=== PATIENT | female | born 2000 | race Caucasian/White ===

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

== ENCOUNTER → 2022-01-11 11:24 | Outpatient (BNVA) | payer OTHER, SELFPAY | PROVIDERS: PCP Physician Assistant; Referring Provider Physician Assistant; Visit Provider Surgery | DX: N60.82 Other benign mammary dysplasias of left breast (principal) | CPT/HCPCS: 99202 ==

== ENCOUNTER 2022-01-26 10:13 | Day surgery (SDC) | payer OTHER, SELFPAY ==
--- NOTE | 2022-01-25 08:27 | HO.ANESPROP2 ---
Documented by User: Carly Post NP 01/25/22 08:28 HPI - Anesthesia Eval Consult details Narrative: 21yo F for Left Excision breast skin Cyst PMFSH Active Problems Active Problems: All Active Problems (Updated 01/13/22 @ 12:58 by Milan Valdez MD) Sebaceous cyst of skin of left breast (Acute) Mild persistent asthma (Acute) Anxiety with depression (Acute) Obese (Acute) Depression (Acute) GERD (gastroesophageal reflux disease) (Acute) Irregular menses (Acute) ADHD (Acute) Migraines (Acute) Past Medical History Medical History (Updated 01/25/22 @ 08:28 by Carly Post NP) ADHD Anxiety with depression COVID-19 Depression GERD (gastroesophageal reflux disease) Irregular menses Migraines Mild persistent asthma Obese Family History Family History Mother No problems noted. Father No problems noted. Maternal Grandmother Skin cancer Surgical History Surgical History History of endoscopy History of tonsillectomy and adenoidectomy Social History Social History Household Members: Family Patient Tobacco Use Status: Never used Tobacco Second Hand Smoke Exposure: Yes Use of substances other than those prescribed or required for medical reasons: Yes Are you DNR?: No Advance Directives: No Advance Directives Information Provided: Yes Advance Directives on File: No Meds Allergies Allergy/AdvReac Type Severity Reaction Status Date / Time Cephalosporins Allergy Intermediate HIVES Verified 01/11/22 11:53 [CEPHALOSPORINS] erythromycin base Allergy Intermediate HIVES Verified 01/11/22 11:53 [ERYTHROMYCIN BASE] levofloxacin [From LEVAQUIN] Allergy Intermediate HIVES Verified 01/11/22 11:53 Penicillins [PENICILLINS] Allergy Intermediate HIVES Verified 01/11/22 11:53 amoxicillin Allergy Unknown Unknown Verified 01/11/22 11:53 azithromycin [Zithromax] Allergy Unknown Unknown Verified 01/11/22 11:53 Antibiotic Allergy Unknown Unknown Uncoded 01/11/22 11:53 Cefzil Allergy Unknown Unknown Uncoded 01/11/22 11:53 Home Medications Medication Instructions Recorded Confirmed Last Taken Type famotidine 20 mg tablet 20 mg PO BID 09/17/21 01/11/22 Unknown History buspirone 5 mg tablet 5 mg PO BID 10/28/21 01/11/22 Unknown History fluticasone propionate 250 2 inh inhalation BID 10/28/21 01/11/22 Unknown History mcg/actuation blister powder for inhalation (Flovent Diskus) montelukast 10 mg tablet 10 mg PO BEDTIME 10/28/21 01/11/22 Unknown History (Singulair) prednisolone sodium phosphate 10 10 mg PO DAILY 10/28/21 01/11/22 Unknown History mg/5 mL oral solution sertraline 50 mg tablet 75 mg PO Q24H 10/28/21 01/11/22 Unknown History Exam Exam Date and Time: January 25, 2022826 Assessment and Plan Assessment Anesthesia Assessment: Chart Reviewed Documented by User: Vero Irving MD 01/26/22 10:44 PMFSH Active Problems Active Problems: All Active Problems (Updated 01/13/22 @ 12:58 by Milan Valdez MD) Sebaceous cyst of skin of left breast (Acute) Mild persistent asthma (Acute) Anxiety with depression (Acute) Obese (Acute)BMI 41.7 Depression (Acute) GERD (gastroesophageal reflux disease) (Acute) Irregular menses (Acute) ADHD (Acute) Migraines (Acute) Snores but never tested for KRISTINE Past Medical History Medical History (Updated 01/25/22 @ 08:28 by Carly Post NP) ADHD Anxiety with depression COVID-19 Depression GERD (gastroesophageal reflux disease) Irregular menses Migraines Mild persistent asthma Obese Family History Family History Mother No problems noted. Father No problems noted. Maternal Grandmother Skin cancer Family history of problems with anesthesia: No Surgical History Surgical History History of endoscopy History of tonsillectomy and adenoidectomy History of Problems with Anesthesia: No (Had MAC anesthesia for EGD- did not like waking up post- procedure before getting to PACU) Social History Social History Household Members: Family Patient Tobacco Use Status: Never used Tobacco Second Hand Smoke Exposure: Yes Use of substances other than those prescribed or required for medical reasons: Yes Are you DNR?: No Advance Directives: No Advance Directives Information Provided: Yes Advance Directives on File: No Meds Allergies Allergy/AdvReac Type Severity Reaction Status Date / Time Cephalosporins Allergy Intermediate HIVES Verified 01/11/22 11:53 [CEPHALOSPORINS] erythromycin base Allergy Intermediate HIVES Verified 01/11/22 11:53 [ERYTHROMYCIN BASE] levofloxacin [From LEVAQUIN] Allergy Intermediate HIVES Verified 01/11/22 11:53 Penicillins [PENICILLINS] Allergy Intermediate HIVES Verified 01/11/22 11:53 amoxicillin Allergy Unknown Unknown Verified 01/11/22 11:53 azithromycin [Zithromax] Allergy Unknown Unknown Verified 01/11/22 11:53 Antibiotic Allergy Unknown Unknown Uncoded 01/11/22 11:53 Cefzil Allergy Unknown Unknown Uncoded 01/11/22 11:53 Home Medications Medication Instructions Recorded Confirmed Last Taken Type famotidine 20 mg tablet 20 mg PO BID 09/17/21 01/11/22 Unknown History buspirone 5 mg tablet 5 mg PO BID 10/28/21 01/11/22 Unknown History fluticasone propionate 250 2 inh inhalation BID 10/28/21 01/11/22 Unknown History mcg/actuation blister powder for inhalation (Flovent Diskus) montelukast 10 mg tablet 10 mg PO BEDTIME 10/28/21 01/11/22 Unknown History (Singulair) prednisolone sodium phosphate 10 10 mg PO DAILY 10/28/21 01/11/22 Unknown History mg/5 mL oral solution sertraline 50 mg tablet 75 mg PO Q24H 10/28/21 01/11/22 Unknown History Exam Height,Weight and Vital Signs: Height 5 ft 2 in Weight 103.419 kg Vital Signs Temp Pulse Resp BP Pulse Ox O2 Del Method 01/26/22 10:33 98.9 F 88 16 137/95 H 96 Room Air Pertinent Lab Results Pertinent Lab Results: Lab Results 01/26/22 Range/Units 10:23 Urine Test NEGATIVE (NEGATIVE) Airway Mallampati Class: II TM Dist: >3cm Neck ROM: Full Loose/Missing/Broken Teeth: No Heart: RRR Lungs: CTAB Assessment and Plan Assessment Anesthesia Assessment: Anesthesia Plan Discussed Final Anesthetic Review Family History of Problems with Anesthesia: No History of Problems with Anesthesia: No (Had MAC anesthesia for EGD- did not like waking up post- procedure before getting to PACU) NPO: Yes ASA Class: III Final Preanesthetic Review: No Changes in Pt Med Stat, Meds/Allgs Chart Reviewed, Consent Obtained/Reviewed and Anes Risks/Benef Reviewed Patient Risk: Intermediate Procedure Risk: Low Assessment/Block/Sedation in SS: Assess/Block/Sedation-SS Anesthetic Plan Anesthetic Plan: GA Disposition: Standard PACU
[2022-01-26] VITALS (7 sets, daily range): BP systolic 121–137; BP diastolic 55–95; PULSE 70–88; RESP 16–18; TEMP 36.1–37.2; O2SAT 96–100; BMI 41.7
[2022-01-26 10:41] LABS: UPreg QC Valid YES; Urine Pregnancy NEGATIVE (NEGATIVE)
[2022-01-26] MEDS: Lactated Ringers 1,000 ML 100 ML IVCONT (10:53)
[2022-01-26] MEDS: vancomycin HCL 1,500 MG in 0.9 % Sodium Chloride 500 ML 333.33 MG IV (11:03)
--- NOTE | 2022-01-26 11:24 | MHC.SHP ---
Pre-Procedural Eval Section A Date of Service: 01/26/22 The patient is an INPATIENT: No Changes since office visit: Yes Patient answered all questions; No Cold of Flu in the past 2 weeks, No New Medical Problems and No Changes in Medication The History & Physical has been completed within 30 days and I have reviewed it.: Yes Section B Chief Complaint: Other benign mammary dysplasias of left breast Allergies: Allergies Allergy/AdvReac Type Severity Reaction Status Date / Time Cephalosporins Allergy Intermediate HIVES Verified 01/11/22 11:53 [CEPHALOSPORINS] erythromycin base Allergy Intermediate HIVES Verified 01/11/22 11:53 [ERYTHROMYCIN BASE] levofloxacin [From LEVAQUIN] Allergy Intermediate HIVES Verified 01/11/22 11:53 Penicillins [PENICILLINS] Allergy Intermediate HIVES Verified 01/11/22 11:53 amoxicillin Allergy Unknown Unknown Verified 01/11/22 11:53 azithromycin [Zithromax] Allergy Unknown Unknown Verified 01/11/22 11:53 Antibiotic Allergy Unknown Unknown Uncoded 01/11/22 11:53 Cefzil Allergy Unknown Unknown Uncoded 01/11/22 11:53 Plan Diagnosis/Plan: Unchanged I have reviewed the history and physical and performed a pertinent physical examination on my patient. No changes have occurred unless specified.
--- NOTE | 2022-01-26 12:01 | P.OP_ITS ---
Operative Note Operative Note Date of Service: 01/26/22 Narrative: Preoperative diagnosis: Epidermal inclusion cyst left breast Postoperative diagnosis: Same Procedure: Excision of epidermal inclusion cyst breast Surgeon: Milan Valdez MD System Support Technician: None Anesthesia: General LMA Indications for procedure: 21-year-old female patient with a long history of a cyst of the left breast presenting with increasing size this the upper inner quadrant. Operative findings: 3 cm epidermal inclusion cyst left upper inner quadrant left breast Specimen: Epidermal inclusion cyst left breast Estimated blood loss: 5 mL Complications: None Procedure details: Patient was brought to the OR placed in a supine position. After administering general anesthesia the patient's left breast was prepped with ChloraPrep and draped in a sterile fashion. A surgical time-out was called the consent confirmed. Patient received preoperative antibiotics and Venodyne boots were in place. Local anesthesia consisting of 0.25% Sensorcaine was then infiltrated around the epidermal inclusion cyst. An elliptical incision was then created with a scalpel and carried down through subcutaneous tissue around the cyst wall. No abscess was encountered during this dissection. The lesion was passed off table sent to pathology for further examination. After assuring adequate hemostasis the wounds were irrigated with saline solution and suctioned dry. Deep breast tissue and dermis were then reapproximated using interrupted 3-0 Polysorb sutures. Skin was then closed using interrupted 4-0 nylon sutures. Sterile dressings consisting of 2 x 2 gauze and Tegaderm were then applied. The patient tolerated the procedure well. Sponge, instrument, and needle counts were reported as correct. The patient was transferred to PACU in stable condition.
[2022-01-26] MEDS: Acetaminophen 325 MG TABLET 650 MG PO (12:55)
== END 2022-01-26 13:27 | disposition home or self-care (01) ==
PROVIDERS: Nurse Practitioner; Visit Provider Surgery
PROC: (CPT 19120; principal; 2022-01-26 11:40)
DX: C44.591 Other specified malignant neoplasm of skin of breast (principal); Z79.899 Other long term (current) drug therapy; Z88.0 Allergy status to penicillin; Z88.1 Allergy status to other antibiotic agents; Z86.16 Personal history of COVID-19
CPT/HCPCS: 19120; 81025; 88304; 88305; 88307; 88341; 88342; 88360; J1100; J1200; J1885; J2250; J2405; J3010; J3370

== ENCOUNTER 2022-02-11 00:42 | Emergency (ER) | payer OTHER, SELFPAY ==
[2022-02-11 01:03] VITALS: BP 133/83; PULSE 84; RESP 16; TEMP 36.8; O2SAT 98; BMI 42.0
[2022-02-11 01:08] VITALS: PULSE 82; RESP 16; O2SAT 99
--- NOTE | 2022-02-11 01:12 | ED_ITS ---
HPI - Back Pain/Injury General Chief Complaint: Back Pain/Injury Stated Complaint: back muscle spasm shooting up to neck Time Seen by Provider: 02/11/22 01:01 Source: patient and family Mode of arrival: ambulatory Limitations: no limitations History of Present Illness HPI Narrative: patient comes to the emergency room complaining of bilateral upper and mid back pain. Patient states that she slept in a Rodriguez position. Since this morning, she has been having muscle spasms on both sides of her back. Patient also complaining of dysuria for couple of days, no hematuria, no flank pain, no fever chills Related Data Home Medications Medication Instructions Recorded Confirmed famotidine 20 mg tablet 20 mg PO BID 09/17/21 01/11/22 buspirone 5 mg tablet 5 mg PO BID 10/28/21 01/11/22 fluticasone propionate 250 2 inh inhalation BID 10/28/21 01/11/22 mcg/actuation blister powder for inhalation (Flovent Diskus) montelukast 10 mg tablet 10 mg PO BEDTIME 10/28/21 01/11/22 (Singulair) prednisolone sodium phosphate 10 10 mg PO DAILY 10/28/21 01/11/22 mg/5 mL oral solution sertraline 50 mg tablet 75 mg PO Q24H 10/28/21 01/11/22 Previous Rx's Medication Instructions Recorded albuterol sulfate 2.5 mg (3 mL) inhalation Q4-6H PRN 09/24/21 shortness of breath or wheezing #75 mL norgestimate 0.18 mg/0.215 mg/0.25 1 tab PO DAILY #84 tabs 10/04/21 mg-ethinyl estradiol 25 mcg tablet lisdexamfetamine 40 mg capsule 40 mg PO QAM #30 caps 10/18/21 (Vyvanse) albuterol sulfate 90 mcg/actuation 2 puff inhalation Q4-6H PRN 11/02/21 aerosol inhaler (ProAir HFA) shortness of breath or wheezing 30 days #18 grams oxycodone 5 mg tablet 5 mg PO Q6H PRN pain (scale score 01/26/22 7-10) #10 tabs cyclobenzaprine 5 mg tablet 5 mg PO TID PRN muscle spasm #10 02/11/22 tabs Allergies Allergy/AdvReac Type Severity Reaction Status Date / Time Cephalosporins Allergy Intermediate HIVES Verified 02/03/22 11:55 [CEPHALOSPORINS] erythromycin base Allergy Intermediate HIVES Verified 02/03/22 11:55 [ERYTHROMYCIN BASE] levofloxacin [From LEVAQUIN] Allergy Intermediate HIVES Verified 02/03/22 11:55 Penicillins [PENICILLINS] Allergy Intermediate HIVES Verified 02/03/22 11:55 amoxicillin Allergy Unknown Unknown Verified 02/03/22 11:55 azithromycin [Zithromax] Allergy Unknown Unknown Verified 02/03/22 11:55 Antibiotic Allergy Unknown Unknown Uncoded 02/03/22 11:55 Cefzil Allergy Unknown Unknown Uncoded 02/03/22 11:55 Review of Systems Review of Systems: Constitutional : No Weight loss, No Fever, No Chills, No Night Sweats, No Fatigue, No Malaise ENT/Mouth : No Hearing loss, No Ear Pain, No Nasal Congestion, No Sinus Pain, No Hoarseness, No sore throat, No Rhinorrhea, No Swallowing Difficulty Eyes: No Eye Pain, No Swelling, No Redness, No Foreign Body, No Discharge, No Vision Changes Cardiovascular : No Chest Pain, No SOB, No Dyspnea on Exertion, No Orthopnea, No Edema, No Palpitations Respiratory : No Cough, No Sputum, No Wheezing, No Smoke Exposure, No Dyspnea Gastrointestinal : No Nausea, No Vomiting, No Diarrhea, No Constipation, No abdominal Pain, No Hematochezia, No Melena Genitourinary : no irregular bleeding, complaining of dysuria, No Urinary Frequency, No Hematuria, No Urinary Incontinence, No Urgency, No Flank Pain, No Urinary Flow Changes, No Hesitancy Musculoskeletal : complaining of bilateral upper and thoracic back pain No joint pain, No Myalgias, No Joint Swelling Skin : No Skin Lesions, No rash Neuro : No Weakness, No Numbness, No Paresthesias, No Loss of Consciousness, No Dizziness, No Headache Psych : No Anxiety/Panic, No Depression, No SI/HI/AH/VH, No Social Issues, Heme/Lymph: No Bruising, No Bleeding,No Lymphadenopathy Endocrine : No Polyuria, No Polydipsia, No Temperature Intolerance PMFSH Past Medical History Medical History COVID-19 Surgical History History of endoscopy History of excision of mass (01/26/22) History of tonsillectomy and adenoidectomy Family History Family History Mother No problems noted. Father No problems noted. Maternal Grandmother Skin cancer Social History Social History Household Members: Family Patient Tobacco Use Status: Never used Tobacco Second Hand Smoke Exposure: Yes Advance Directives: No Advance Directives Information Provided: Yes Physical Exam Vital Signs: Vital Signs: Last Vital Signs Temp 98.2 F 02/11/22 01:03 Pulse 83 02/11/22 02:09 Resp 14 02/11/22 02:09 BP 133/83 02/11/22 01:03 Pulse Ox 99 02/11/22 02:09 O2 Del Method 02/11/22 01:08 BMI result Body Mass Index 42.0 Const: Other: Appearance: Alert. Oriented X3. No acute distress. Eyes: Pupils equal, round and reactive to light. ENT: Pharynx normal. Neck: Normal inspection. Neck supple. No lymph nodes noted. No crepitus CVS: Normal heart rate and rhythm. Pulses normal. Normal S1 and S2 Respiratory: No respiratory distress. Breath sounds normal. No Wheezing. No rales Abdomen: Soft and nontender. No rigidity. No distention. back: Pain to palpation in all spots in her back bilaterally, no spine tenderness. Skin: Skin warm and dry. Normal skin color. Normal skin turgor. Extremities: No lower extremity edema. No Lacerations. No Rash Neuro: Oriented X 3. No motor deficit. No sensory deficit. Moving all extremities. No slurred speech. CN 2 through 12 grossly intact Psych: Very anxious, crying Course Course Course Narrative: patient offered 1 dose of IM Toradol and p.o. Valium. Urinalysis pending urinalysis negative for UTI. MDM - Back Pain/Injury Lab Data Labs: Lab Results 02/11/22 Range/Units 02:09 Urine Color YELLOW Urine Appearance HAZY Urine pH 6.0 (5.0-8.0) Ur Specific [place] >= 1.030 H (1.005-1.025) Urine Protein NEG (NEG-TRACE) MG/DL Urine Glucose (UA) NEG (NEG) MG/DL Urine Ketones NEG (NEG) MG/DL Urine Blood NEG (NEG) Urine Nitrite NEG (NEG) Ur Leukocyte Esterase NEG (NEG) Discharge Plan Discharge Clinical Impression: Back muscle spasm, Dysuria Patient Disposition: Home, Self-Care Instructions: Dysuria (ED), Muscle Spasm (ED) Additional Instructions: Please follow-up with your primary care physician tomorrow. If you have any worsening or new symptoms, please return to the emergency room or call 911 Prescriptions: New cyclobenzaprine 5 mg tablet 5 mg PO TID PRN (Reason: muscle spasm) Qty: 10 0RF No Action albuterol sulfate 2.5 mg /3 mL (0.083 %) solution for nebulization 2.5 mg inhalation Q4-6H PRN (Reason: shortness of breath or wheezing) Qty: 75 0RF norgestimate-ethinyl estradiol 0.18/0.215/0.25 mg-25 mcg tablet 1 tab PO DAILY Qty: 84 2RF Vyvanse 40 mg capsule 40 mg PO QAM Qty: 30 0RF albuterol sulfate [ProAir HFA] 90 mcg/actuation HFA aerosol inhaler 2 puff inhalation Q4-6H PRN (Reason: shortness of breath or wheezing) 30 Days Qty: 18 3RF oxycodone 5 mg tablet 5 mg PO Q6H PRN (Reason: pain (scale score 7-10)) Qty: 10 0RF Rx Instructions: Partial Fill upon patient request. famotidine 20 mg tablet 20 mg PO BID Flovent Diskus 250 mcg/actuation blister with device 2 inh inhalation BID buspirone 5 mg tablet 5 mg PO BID prednisolone sodium phosphate 10 mg/5 mL solution 10 mg PO DAILY sertraline 50 mg tablet 75 mg PO Q24H montelukast [Singulair] 10 mg tablet 10 mg PO BEDTIME
[2022-02-11] MEDS: diazePAM 2 MG TABLET PO (01:18)
[2022-02-11] MEDS: Ketorolac Tromethamine 30 MG/ML VIAL IM (01:19)
[2022-02-11 02:09] VITALS: PULSE 83; RESP 14; O2SAT 99
[2022-02-11 02:18] LABS: Appearance Urine HAZY; Color Urine YELLOW; Glucose Urine UA NEG (NEG); Leukocyte Esterase Urine NEG (NEG); Nitrite Urine NEG (NEG); Specific Gravity - Urine >= 1.030 (1.005-1.025); Urine Blood NEG (NEG); Urine Ketones NEG (NEG); Urine Protein NEG (NEG-TRACE)
== END 2022-02-11 02:57 | disposition home or self-care (01) ==
PROVIDERS: Emergency Provider Emergency Medicine; PCP Physician Assistant
DX: M62.830 Muscle spasm of back (principal); R30.0 Dysuria; Z79.899 Other long term (current) drug therapy
CPT/HCPCS: 81003; 96372; 99284; J1885

== ENCOUNTER 2022-02-14 15:07 | Emergency (ER) | payer OTHER, SELFPAY ==
[2022-02-14 15:17] VITALS: BP 147/78; PULSE 111; RESP 22; TEMP 36.1; O2SAT 97; BMI 42.0
== END 2022-02-14 16:30 | disposition left against medical advice (07) ==
PROVIDERS: Emergency Provider Emergency Medicine; PCP Physician Assistant
DX: J45.909 Unspecified asthma, uncomplicated (principal)
CPT/HCPCS: 99281

== ENCOUNTER 2022-02-23 07:40 | Day surgery (SDC) | payer OTHER, SELFPAY ==
[2022-02-17 14:12] VITALS: BMI 42.0
[2022-02-23] VITALS (19 sets, daily range): BP systolic 125–144; BP diastolic 72–96; PULSE 88–101; RESP 14–20; TEMP 36.1–36.5; O2SAT 93–100
[2022-02-23 07:58] LABS: UPreg QC Valid YES
[2022-02-23 08:00] LABS: Urine Pregnancy NEGATIVE (NEGATIVE)
[2022-02-23] MEDS: vancomycin HCL 1,500 MG in 0.9 % Sodium Chloride 500 ML 333.33 MG IV (08:16)
[2022-02-23] MEDS: Lactated Ringers 1,000 ML 100 ML IVCONT (08:16)
[2022-02-23] MEDS: diphenhydrAMINE HCL 50 MG/ML VIAL 25 MG IVPUSH (09:15)
--- NOTE | 2022-02-23 09:18 | P.CONAN_ITS ---
[facility] Active Problems Active Problems: All Active Problems (Updated 02/12/22 @ 00:02 by Diane Rodriguez) Irregular menses (Acute) Depression (Acute) Migraines (Acute) Obese (Acute) Mild persistent asthma (Acute) GERD (gastroesophageal reflux disease) (Acute) Anxiety with depression (Acute) ADHD (Acute) Dermatofibrosarcoma protuberans of chest (Acute) Past Medical History Medical History COVID-19 Patient : No Family History Family History Mother No problems noted. Father No problems noted. Maternal Grandmother Skin cancer Family history of problems with anesthesia: No Surgical History Surgical History History of endoscopy History of excision of mass (01/26/22) History of tonsillectomy and adenoidectomy History of Problems with Anesthesia: No (Had MAC anesthesia for EGD- did not like waking up post- procedure before getting to PACU) Social History Social History Household Members: Family Are you a primary student career development specialist to a significant other at home: No Do you presently have visiting nurse or other home services: No Patient Tobacco Use Status: Never used Tobacco Second Hand Smoke Exposure: Yes Use of substances other than those prescribed or required for medical reasons: Yes Substance Use Frequency: Daily Have you been hit, kicked, punched, or otherwise hurt by someone within the past year? If so, by whom?: No Are you DNR?: No Advance Directives: No Advance Directives Information Provided: Yes Advance Directives on File: No Recently lost weight without trying: No Patient : No FDLMP: 01/17/2022 : No Poor oral hygiene: No Meds Allergies Allergy/AdvReac Type Severity Reaction Status Date / Time amoxicillin Allergy Intermediate Hives Verified 02/17/22 14:07 azithromycin [Zithromax] Allergy Intermediate Itching Verified 02/17/22 14:07 Cephalosporins Allergy Intermediate HIVES Verified 02/14/22 15:24 [CEPHALOSPORINS] erythromycin base Allergy Intermediate HIVES Verified 02/14/22 15:24 [ERYTHROMYCIN BASE] levofloxacin [From LEVAQUIN] Allergy Intermediate HIVES Verified 02/14/22 15:24 Penicillins [PENICILLINS] Allergy Intermediate HIVES Verified 02/14/22 15:24 Antibiotic Allergy Intermediate Itching Uncoded 02/17/22 14:07 Cefzil Allergy Intermediate Itching Uncoded 02/17/22 14:07 Active Medications: Current Medications Lactated Ringer's (Lr) 1,000 mls @ 100 mls/hr IVCONT .Q10H GAEL Last Admin: 02/23/22 08:16 Dose: 100 mls/hr Ondansetron HCl (Ondansetron Hcl 4 Mg/2 Ml Vial) 4 mg IVPUSH ONCE PRN PRN Reason: Nausea and Vomiting Pharmacy Consult (Consult Rx Vancomycin Dosing) 1 each MISCELLANE DAILY PRN PRN Reason: Consult order Home Medications Medication Instructions Recorded Confirmed Last Taken Type famotidine 20 mg tablet 20 mg PO BID 09/17/21 02/17/22 02/23/22 History buspirone 5 mg tablet 5 mg PO BID 10/28/21 02/17/22 02/23/22 History montelukast 10 mg tablet 10 mg PO BEDTIME 10/28/21 02/17/22 Unknown History (Singulair) sertraline 50 mg tablet 75 mg PO DAILY 10/28/21 02/17/22 02/23/22 History fluticasone 500 mcg-salmeterol 50 2 inh inhalation BID 02/17/22 02/17/22 Unknown History mcg/dose blistr powdr for inhalation (Advair Diskus) Exam Exam Date and Time: February 23, 2022 0918 Height,Weight and Vital Signs: Height 5 ft 2 in Weight 104.326 kg Last Vital Signs Temp 97 F 02/23/22 07:54 Pulse 88 02/23/22 07:54 Resp 19 02/23/22 07:54 BP 134/81 02/23/22 07:54 Pulse Ox 97 02/23/22 07:54 O2 Del Method 02/23/22 07:54 Pertinent Lab Results Pertinent Lab Results: Laboratory Tests 02/23/22 07:40 Urine Test NEGATIVE Airway Mallampati Class: II TM Dist: >3cm Neck ROM: Full Loose/Missing/Broken Teeth: No Heart: rrr Lungs: clear Assessment and Plan Final Anesthetic Review Family History of Problems with Anesthesia: No History of Problems with Anesthesia: No (Had MAC anesthesia for EGD- did not like waking up post- procedure before getting to PACU) NPO: Yes ASA Class: II Final Preanesthetic Review: No Changes in Pt Med Stat, Meds/Allgs Chart Reviewed, Consent Obtained/Reviewed and Anes Risks/Benef Reviewed Patient Risk: Intermediate Procedure Risk: Low Anesthetic Plan Anesthetic Plan: GA Disposition: Standard PACU
--- NOTE | 2022-02-23 09:22 | P.CONAN_ITS ---
[facility] Active Problems Active Problems: All Active Problems (Updated 02/12/22 @ 00:02 by Diane Rodriguez) Irregular menses (Acute) Depression (Acute) Migraines (Acute) Obese (Acute) Mild persistent asthma (Acute) GERD (gastroesophageal reflux disease) (Acute) Anxiety with depression (Acute) ADHD (Acute) Dermatofibrosarcoma protuberans of chest (Acute) Past Medical History Medical History COVID-19 Family History Family History Mother No problems noted. Father No problems noted. Maternal Grandmother Skin cancer Family history of problems with anesthesia: No Surgical History Surgical History History of endoscopy History of excision of mass (01/26/22) History of tonsillectomy and adenoidectomy History of Problems with Anesthesia: No (Had MAC anesthesia for EGD- did not like waking up post- procedure before getting to PACU) Social History Social History Household Members: Family Are you a primary rn home care to a significant other at home: No Do you presently have visiting nurse or other home services: No Patient Tobacco Use Status: Never used Tobacco Second Hand Smoke Exposure: Yes Use of substances other than those prescribed or required for medical reasons: Yes Substance Use Frequency: Daily Have you been hit, kicked, punched, or otherwise hurt by someone within the past year? If so, by whom?: No Are you DNR?: No Advance Directives: No Advance Directives Information Provided: Yes Advance Directives on File: No Recently lost weight without trying: No Patient : No FDLMP: 01/17/2022 : No Poor oral hygiene: No Meds Allergies Allergy/AdvReac Type Severity Reaction Status Date / Time amoxicillin Allergy Intermediate Hives Verified 02/17/22 14:07 azithromycin [Zithromax] Allergy Intermediate Itching Verified 02/17/22 14:07 Cephalosporins Allergy Intermediate HIVES Verified 02/14/22 15:24 [CEPHALOSPORINS] erythromycin base Allergy Intermediate HIVES Verified 02/14/22 15:24 [ERYTHROMYCIN BASE] levofloxacin [From LEVAQUIN] Allergy Intermediate HIVES Verified 02/14/22 15:24 Penicillins [PENICILLINS] Allergy Intermediate HIVES Verified 02/14/22 15:24 Antibiotic Allergy Intermediate Itching Uncoded 02/17/22 14:07 Cefzil Allergy Intermediate Itching Uncoded 02/17/22 14:07 Active Medications: Current Medications Lactated Ringer's (Lr) 1,000 mls @ 100 mls/hr IVCONT .Q10H GAEL Last Admin: 02/23/22 08:16 Dose: 100 mls/hr Ondansetron HCl (Ondansetron Hcl 4 Mg/2 Ml Vial) 4 mg IVPUSH ONCE PRN PRN Reason: Nausea and Vomiting Pharmacy Consult (Consult Rx Vancomycin Dosing) 1 each MISCELLANE DAILY PRN PRN Reason: Consult order Home Medications Medication Instructions Recorded Confirmed Last Taken Type famotidine 20 mg tablet 20 mg PO BID 09/17/21 02/17/22 02/23/22 History buspirone 5 mg tablet 5 mg PO BID 10/28/21 02/17/22 02/23/22 History montelukast 10 mg tablet 10 mg PO BEDTIME 10/28/21 02/17/22 Unknown History (Singulair) sertraline 50 mg tablet 75 mg PO DAILY 10/28/21 02/17/22 02/23/22 History fluticasone 500 mcg-salmeterol 50 2 inh inhalation BID 02/17/22 02/17/22 Unknown History mcg/dose blistr powdr for inhalation (Advair Diskus) Exam Exam Date and Time: February 23, 2022921 Height,Weight and Vital Signs: Height 5 ft 2 in Weight 104.326 kg Last Vital Signs Temp 97 F 02/23/22 07:54 Pulse 88 02/23/22 07:54 Resp 19 02/23/22 07:54 BP 134/81 02/23/22 07:54 Pulse Ox 97 02/23/22 07:54 O2 Del Method 02/23/22 07:54 Pertinent Lab Results Pertinent Lab Results: Laboratory Tests 02/23/22 07:40 Urine Test NEGATIVE Assessment and Plan Final Anesthetic Review Family History of Problems with Anesthesia: No History of Problems with Anesthesia: No (Had MAC anesthesia for EGD- did not like waking up post- procedure before getting to PACU)
--- NOTE | 2022-02-23 11:18 | W.PM.OPN ---
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 Previous excision revealed dermatofibrosarcoma protuberans. She returns today for wide excision to assure complete removal. Operative findings: Excision site in the medial left breast just lateral to the sternum. Lesion excised with 3 cm margins circumferentially Specimen: wide excision left breast sarcoma Estimated blood loss: 5 mL Complications: none Procedure details: patient was brought to the OR placed in a supine position. After administering general anesthesia the patient's left breast and right breast were prepped with ChloraPrep and draped in a sterile fashion. A surgical time-out was called the consent confirmed. Patient received preoperative antibiotics and Venodyne boots were placed. Local anesthesia consisting of 0.5% Sensorcaine was then infiltrated circumferentially around the lesion. Elliptical incision was then made oriented transversely with 3 cm margin circumferentially. This was carried down through subcutaneous tissue into the breast tissue and down to chest wall. The lesion was then excised off the chest wall including pectoralis fascia. Hemostasis was assured using electrocautery. Specimen was passed off the table and sent to pathology for immediate gross and frozen section of the margins. This eventually revealed clear frozen section margins. Breast tissue was then mobilized both superiorly and inferiorly over the chest wall. This was then reapproximated using interrupted 3-0 Polysorb sutures. Deeper breast tissue was reapproximated using interrupted 3-0 Polysorb sutures. Dermis was reapproximated using interrupted 3-0 Polysorb sutures. Skin was closed using a running subcuticular 4-0 Polysorb suture. Interrupted 4-0 nylon sutures were then applied to reduce the tension on the skin. Sterile dressings were then applied including Steri-Strips and Tegaderm. The patient tolerated the procedure well. Sponge, instrument, and needle counts reported as correct. The patient was transferred to PACU in stable condition.
[2022-02-23] MEDS: HYDROmorphone HCl 0.5 MG/0.5 ML SYRINGE IVPUSH ×2 (12:06→12:17)
[2022-02-23] MEDS: oxyCODONE HCl Immed Release 5 MG TABLET 10 MG PO (12:11)
[2022-02-23] MEDS: Ketorolac Tromethamine 30 MG/ML VIAL IVPUSH (12:38)
== END 2022-02-23 15:30 | disposition home or self-care (01) ==
PROVIDERS: Anesthesiology; PCP Physician Assistant; Visit Provider Surgery
PROC: (CPT 11606; principal; 2022-02-23 09:10)
DX: C44.591 Other specified malignant neoplasm of skin of breast (principal); N60.82 Other benign mammary dysplasias of left breast; Z86.16 Personal history of COVID-19; Z88.0 Allergy status to penicillin; Z88.1 Allergy status to other antibiotic agents; Z88.8 Allergy status to other drugs, medicaments and biological substances
CPT/HCPCS: 11606; 12032; 81025; 88307; 88329; J0131; J1100; J1170; J1200; J1885; J2250; J2405; J2795; J3010; J3370

== ENCOUNTER 2022-05-13 12:50 | Outpatient (REF) | payer OTHER, SELFPAY ==
--- NOTE | ~2022-05-13 | US_ITS ---
EXAMINATION: US ABDOMEN COMPLETE CLINICAL INFORMATION: Elevated LFTs. COMPARISON: Ultrasound abdomen complete 05/13/2019. TECHNIQUE: Real-time imaging of the abdominal viscera. FINDINGS: PANCREAS: The head of the pancreas is normal. The body and tail are not well visualized bowel gas. ABDOMINAL AORTA: The proximal, mid, and distal segments are normal in caliber. INFERIOR VENA CAVA: Visualized portions are normal. LIVER: Liver echotexture is increased suggestive of fatty infiltration. There is a hypoechoic area adjacent to gallbladder, characteristic location of focal narrowing. The liver contour is normal. No focal hepatic lesion. There is no intrahepatic biliary duct dilatation seen. GALLBLADDER: Normal. The gallbladder is physiologically distended without evidence of stones, sludge, polyps, wall thickening or pericholecystic fluid. COMMON BILE DUCT: Normal in caliber measuring 0.4 cm in diameter. RIGHT KIDNEY: Normal No hydronephrosis. No renal calculi or focal parenchymal lesions. The kidney measures 10.2 cm in maximum dimension. LEFT KIDNEY: Normal. No hydronephrosis. No renal calculi or focal parenchymal lesions. The kidney measures 11.0 cm in maximum dimension. SPLEEN: Normal. The spleen measures 12.2 cm in maximum dimension. FREE FLUID: None. US/US abdomen complete IMPRESSION: Echogenic liver probably representing fatty infiltration. Limited visualization of the pancreas.
== END 2022-05-13 12:51 | disposition home or self-care (01) ==
LOC: HO.US 12:50
PROVIDERS: Visit Provider Internal Medicine Medical Oncology
DX: R79.89 Other specified abnormal findings of blood chemistry (principal)
CPT/HCPCS: 76700

== ENCOUNTER 2022-06-30 16:43 | Emergency (ER) | payer OTHER, SELFPAY ==
--- NOTE | ~2022-06-30 | XR_ITS ---
EXAMINATION: XR CHEST CLINICAL INFORMATION: Cough COMPARISON: 03/08/2021 and 06/17/2019 TECHNIQUE: Frontal view of the chest was obtained. FINDINGS: Suboptimal depth of inspiration. No focal pneumonia. No effusion or pneumothorax. Chronic mild bronchial wall thickening. Hair artifact over the lung apices. Stable heart and mediastinum within normal limits. Nonobstructive gas pattern. No acute osseous finding. XR/XR chest 1V IMPRESSION: 1. No focal pneumonia. 2. Chronic mild bronchial wall thickening.
[2022-06-30 16:51] VITALS: BP 135/85; PULSE 109; RESP 18; TEMP 37; O2SAT 97; BMI 42.7
--- NOTE | 2022-06-30 16:52 | ED.URI ---
HPI - URI/Sore Throat General Chief Complaint: Ear Problems Stated Complaint: Sore throat, Earache Time Seen by Provider: 06/30/22 19:03 Source: patient Mode of arrival: ambulatory History of Present Illness HPI Narrative: 22yo F with no sig PMHx presenting c/o sore throat, ear pain, productive cough and mild SOB x 2 weeks. Also reports subj fever. Denies inability to swallow, CP, ear drainage/hearing loss, abd pain, N/V/D/C, recent travel MD elicited complaint: fever, cough, sore throat, rhinorrhea and nasal congestion Related Data Home Medications Medication Instructions Recorded Confirmed famotidine 20 mg tablet 20 mg PO BID 09/17/21 04/18/22 montelukast 10 mg tablet 10 mg PO BEDTIME 10/28/21 04/18/22 (Singulair) fluticasone 500 mcg-salmeterol 50 2 inh inhalation BID 02/17/22 04/18/22 mcg/dose blistr powdr for inhalation (Advair Diskus) clonidine HCl 0.1 mg tablet 0.1 - 0.2 mg PO BEDTIME insomnia 04/07/22 04/18/22 lisdexamfetamine 60 mg capsule 60 mg PO DAILY 04/07/22 04/18/22 (Vyvanse) sertraline 100 mg tablet 100 mg PO DAILY 04/07/22 04/18/22 Previous Rx's Medication Instructions Recorded albuterol sulfate 2.5 mg/3 mL 2.5 mg (3 mL) inhalation Q4-6H PRN 09/24/21 (0.083 %) solution for nebulization shortness of breath or wheezing #75 mL albuterol sulfate 90 mcg/actuation 2 puff inhalation Q4-6H PRN 11/02/21 aerosol inhaler (ProAir HFA) shortness of breath or wheezing 30 days #18 grams norgestimate 0.18 mg/0.215 mg/0.25 1 tab PO DAILY #84 tabs 04/18/22 mg-ethinyl estradiol 25 mcg tablet azithromycin 250 mg tablet See Rx Instructions PO .COMPLEX #6 06/30/22 tabs diphenhydramine HCl 25 mg capsule 25 mg PO TID PRN allergic reaction 06/30/22 (Benadryl) #14 caps Allergies Allergy/AdvReac Type Severity Reaction Status Date / Time amoxicillin Allergy Intermediate Hives Verified 06/30/22 16:51 azithromycin [Zithromax] Allergy Intermediate Itching Verified 06/30/22 16:51 Cephalosporins Allergy Intermediate HIVES Verified 06/30/22 16:51 [CEPHALOSPORINS] erythromycin base Allergy Intermediate HIVES Verified 06/30/22 16:51 [ERYTHROMYCIN BASE] levofloxacin [From LEVAQUIN] Allergy Intermediate HIVES Verified 06/30/22 16:51 Penicillins [PENICILLINS] Allergy Intermediate HIVES Verified 06/30/22 16:51 Antibiotic Allergy Intermediate Itching Uncoded 04/18/22 13:31 Cefzil Allergy Intermediate Itching Uncoded 04/18/22 13:31 Review of Systems Review of Systems: Constitutional: No Fever, No Chills ENT/Mouth: + Ear Pain, No Nasal Congestion, No Sinus Pain, No Hoarseness, + sore throat, No Rhinorrhea, No Swallowing Difficulty Cardiovascular: No Chest Pain, + SOB Respiratory: + Cough, + Sputum, No Wheezing Gastrointestinal: No Nausea, No Vomiting, No Diarrhea, No Constipation, No Abdominal pain Genitourinary: No Dysuria, No Urinary Frequency, No Hematuria Musculoskeletal: No joint pain, No Myalgias, No Joint Swelling Skin: No Skin Lesions, No rash Neuro: No Weakness, No Numbness, No Paresthesias Yes all other systems are reviewed and are negative Constitutional: Constitutional: Reports as per [facility] Past Medical History Attestation statement: The following information was validated with the patient. Medical History COVID-19 Surgical History History of endoscopy History of excision of mass (01/26/22) History of excision of mass (02/23/22) History of tonsillectomy and adenoidectomy Family History Family History Mother No problems noted. Father No problems noted. Maternal Grandmother Skin cancer Social History Social History Household Members: Family Housing: House Are you a primary client care representative to a significant other at home: No Do you presently have visiting nurse or other home services: No Patient Tobacco Use Status: Never used Tobacco Second Hand Smoke Exposure: Yes Substance Use Type: Marijuana Advance Directives: No Advance Directives Information Provided: No service: No Current occupational status: employed Physical Exam Vital Signs: Vital Signs: Last Vital Signs Temp 98.6 F 06/30/22 16:51 Pulse 87 06/30/22 19:21 Resp 18 06/30/22 16:51 BP 135/85 06/30/22 16:51 Pulse Ox 97 06/30/22 16:51 O2 Del Method 06/30/22 16:51 BMI result Body Mass Index 42.7 Const: General: cooperative, healthy appearing and no acute distress Orientation/consciousness: patient oriented x3 Limitations: no limitations HEENT: Head: Yes normal to inspection and Yes atraumatic Ears: hearing grossly normal bilaterally, external ears normal and TM's normal bilaterally General nose exam: Normal external nose present Face and sinus: Yes normal facial exam Throat: Yes posterior oropharynx normal, Yes tonsils normal, Yes uvula midline and No uvula laterally displaced Eyes: General: appearance normal, both eyes and all related structures EOM: EOMs intact bilaterally Neck: Neck: Yes normal visual inspection and Yes no meningeal signs Resp: Effort & Inspection: normal respiratory effort and no respiratory distress Auscultation: clear to auscultation bilaterally, no crackles, no rales, no rhonchi and no wheezes Cardio: Rate: regular rate Heart sounds: S1 normal heart sound present and S2 normal heart sound present Skin: Rashes: no rashes Wounds: no wounds Neuro: General: patient oriented x3, tone normal and no meningeal signs Gait exam (Neuro): Normal gait present Extrem: General: Yes normal to inspection Course Course Course Narrative: RME--22yo F pmhx asthma c/o productive cough, sob, sore throat, ear pain and subj fevers x1 week. Admits was exposed to RSV. Lungs CTA Plan: COVID/FLU/RSV, strep swab and CXR ordered Reevaluation(s) Reevaluation #1: covid, flu, rsv negative cxr unremarkable. will d/c w/abx for sinusitis Results discussed with patient including worrisome signs and symptoms and strict return precautions, and when to return to the emergency department. They verbalized understanding and feel safe for discharge at this time. Time: 19:09 [facility] - URI/Sore Throat MDM Narrative Medical decision making narrative: 22yo F with no sig PMHx presenting c/o sore throat, ear pain, productive cough and mild SOB x 2 weeks. On exam mildly tachycardic, NAD, well appearing, lungs CTA, exam benign. Concern for URI vs brinchitis vs PNA vs strep. No evidence of [employer] Plan: COVID/flu/rsv testing, CXR, rapid strep Differential Diagnosis Differential diagnosis: Likely upper respiratory infection, viral infection, bronchitis, influenza and pharyngitis Medical Records Attestation: I reviewed the patient's medical records. Lab Data Attestation: I reviewed the patient's lab results. Labs: Lab Results 06/30/22 06/30/22 Range/Units 16:56 16:56 Influenza Type A (PCR) NEGATIVE (Negative) Influenza Type B (PCR) NEGATIVE (Negative) RSV RNA Qual (PCR) NEGATIVE (Negative) SARS-CoV-2 RNA (RT-PCR) NEGATIVE (Negative) S. pyogenes GrpA JONY Negative (Negative) Discharge Plan Discharge Clinical Impression: Acute viral syndrome Patient Disposition: Home, Self-Care Instructions: Viral Syndrome (ED) Additional Instructions: you tested negative for covid, flu and rsv Z-colin is an antibiotic take as prescribed rest stay hydrated follow up with your doctor if symptoms persist or worsen return to the ED Prescriptions: New azithromycin 250 mg tablet See Rx Instructions .ROUTE .COMPLEX Qty: 6 0RF Rx Instructions: take 500 mg today (day 1), then 250 mg for 4 days (days 2-5) diphenhydramine HCl [Benadryl] 25 mg capsule 25 mg PO TID PRN (Reason: allergic reaction) Qty: 14 0RF No Action albuterol sulfate 2.5 mg /3 mL (0.083 %) solution for nebulization 2.5 mg inhalation Q4-6H PRN (Reason: shortness of breath or wheezing) Qty: 75 0RF albuterol sulfate [ProAir HFA] 90 mcg/actuation HFA aerosol inhaler 2 puff inhalation Q4-6H PRN (Reason: shortness of breath or wheezing) 30 Days Qty: 18 3RF norgestimate-ethinyl estradiol 0.18/0.215/0.25 mg-25 mcg tablet 1 tab PO DAILY Qty: 84 0RF fluticasone propion-salmeterol [Advair Diskus] 500-50 mcg/dose blister with device 2 inh INHALATION BID famotidine 20 mg tablet 20 mg PO BID montelukast [Singulair] 10 mg tablet 10 mg PO BEDTIME clonidine HCl 0.1 mg tablet 0.1 - 0.2 mg PO BEDTIME sertraline 100 mg tablet 100 mg PO DAILY Vyvanse 60 mg capsule 60 mg PO DAILY Referrals: Physician,None [Primary Care Provider] - 3 days Interventions: ED Discharge Assessment Last Done: 06/30/22 19:37 Discharge Date/Time: 06/30/22 19:37
[2022-06-30 17:23] LABS: Strep A Nucleic Acid Negative (Negative)
[2022-06-30 17:52] LABS: Influenza A PCR NEGATIVE (Negative); Influenza B PCR NEGATIVE (Negative); Resp Syncy Virus RNA Qual PCR NEGATIVE (Negative); SARS COV2 PCR INHOUSE NEGATIVE (Negative)
[2022-06-30 19:21] VITALS: PULSE 87
== END 2022-06-30 19:37 | disposition home or self-care (01) ==
PROVIDERS: Physician Assistant; Emergency Provider Student in an Organized Health Care Education/Training Program
DX: B34.9 Viral infection, unspecified (principal); J02.9 Acute pharyngitis, unspecified; R06.02 Shortness of breath; F12.90 Cannabis use, unspecified, uncomplicated; Z20.822 Contact with and (suspected) exposure to COVID-19
CPT/HCPCS: 0241U; 71045; 87651; 99282; 99283

== ENCOUNTER → 2022-07-07 15:40 | Outpatient (BNVA) | payer OTHER, SELFPAY | PROVIDERS: Visit Provider Surgery | DX: C44.599 Other specified malignant neoplasm of skin of other part of trunk (principal) | CPT/HCPCS: 99212 ==

== ENCOUNTER 2022-08-03 13:35 | Outpatient (REF) | payer OTHER, SELFPAY ==
--- NOTE | ~2022-08-03 | MR_ITS ---
EXAMINATION: MR CHEST WITHOUT AND WITH CONTRAST CLINICAL INFORMATION: Malignant neoplasm of the trunk. Per patient, cyst removed from the chest. COMPARISON: None TECHNIQUE: Multisequence multidimensional MR acquisition of the chest performed before and after administration of 10 mL of Gadavist IV contrast. FINDINGS: There is a marker positioned at the midline of the upper chest. There is mild scarring seen in the upper inner soft tissues of the left breast region extending down to the pectoralis level. No associated mass. No abnormal enhancement. No fluid collection. The visualized portion of the lungs appear grossly clear. No pleural fluid. The visualized mediastinum shows a normal heart size. No axillary lymphadenopathy. No superior mediastinal lymphadenopathy. The study is not tailored for evaluation of the breast tissues, but there is no gross abnormality identified. No bone marrow signal abnormality. MR/MR chest wo/w con IMPRESSION: Mild scarring in the upper inner soft tissues of the left breast, near the midline. No mass or abnormal enhancement. No fluid collection.
== END 2022-08-03 13:36 | disposition home or self-care (01) ==
LOC: HO.MRI 13:35
PROVIDERS: Visit Provider Surgery
DX: C44.599 Other specified malignant neoplasm of skin of other part of trunk (principal)
CPT/HCPCS: 71552; A9585

== ENCOUNTER → 2022-10-28 10:26 | Outpatient (BNVA) | payer OTHER, SELFPAY | PROVIDERS: Visit Provider Surgery | DX: C44.599 Other specified malignant neoplasm of skin of other part of trunk (principal) | CPT/HCPCS: 99212 ==

== ENCOUNTER 2023-02-27 21:02 | Emergency (ER) | payer OTHER, SELFPAY ==
[2023-02-27 21:10] VITALS: BP 141/91; PULSE 105; RESP 18; TEMP 36.2; O2SAT 97; BMI 43.0
--- NOTE | 2023-02-27 22:44 | ED_ITS ---
HPI - URI/Sore Throat General Chief Complaint: Upper Respiratory Symptoms Stated Complaint: difficulty breathing/ asthma Time Seen by Provider: 02/27/23 22:12 Source: patient Mode of arrival: ambulatory History of Present Illness HPI Narrative: 23-year-old female, history of asthma, presents with cough, congestion, shortness of breath but denies any fever chills for the past 4-5 days. Related Data Home Medications Medication Instructions Recorded Confirmed famotidine 20 mg tablet 20 mg PO BID 09/17/21 10/28/22 montelukast 10 mg tablet 10 mg PO BEDTIME 10/28/21 10/28/22 (Singulair) fluticasone 500 mcg-salmeterol 50 2 inh inhalation BID 02/17/22 10/28/22 mcg/dose blistr powdr for inhalation (Advair Diskus) clonidine HCl 0.1 mg tablet 0.1 - 0.2 mg PO BEDTIME insomnia 04/07/22 10/28/22 lisdexamfetamine 60 mg capsule 60 mg PO DAILY 04/07/22 10/28/22 (Vyvanse) sertraline 100 mg tablet 100 mg PO DAILY 04/07/22 10/28/22 Previous Rx's Medication Instructions Recorded albuterol sulfate 2.5 mg/3 mL 2.5 mg (3 mL) inhalation Q4-6H PRN 09/24/21 (0.083 %) solution for nebulization shortness of breath or wheezing #75 mL albuterol sulfate 90 mcg/actuation 2 puff inhalation Q4-6H PRN 11/02/21 aerosol inhaler (ProAir HFA) shortness of breath or wheezing 30 days #18 grams norgestimate 0.18 mg/0.215 mg/0.25 1 tab PO DAILY #84 tabs 04/18/22 mg-ethinyl estradiol 25 mcg tablet azithromycin 250 mg tablet See Rx Instructions PO .COMPLEX #6 06/30/22 tabs diphenhydramine HCl 25 mg capsule 25 mg PO TID PRN allergic reaction 06/30/22 (Benadryl) #14 caps Allergies Allergy/AdvReac Type Severity Reaction Status Date / Time amoxicillin Allergy Intermediate Hives Verified 10/28/22 10:41 azithromycin [Zithromax] Allergy Intermediate Itching Verified 10/28/22 10:41 Cephalosporins Allergy Intermediate HIVES Verified 10/28/22 10:41 [CEPHALOSPORINS] erythromycin base Allergy Intermediate HIVES Verified 10/28/22 10:41 [ERYTHROMYCIN BASE] levofloxacin [From LEVAQUIN] Allergy Intermediate HIVES Verified 10/28/22 10:41 Penicillins [PENICILLINS] Allergy Intermediate HIVES Verified 10/28/22 10:41 Antibiotic Allergy Intermediate Itching Uncoded 10/28/22 10:41 Cefzil Allergy Intermediate Itching Uncoded 10/28/22 10:41 Review of Systems Review of Systems: Pertinent positives and negatives as stated in HPI [facility] Past Medical History Source: nursing notes reviewed Medical History COVID-19 Surgical History History of endoscopy History of excision of mass (01/26/22) History of excision of mass (02/23/22) History of tonsillectomy and adenoidectomy Family History Family History Mother No problems noted. Father No problems noted. Maternal Grandmother Skin cancer Social History Social History Household Members: Family Housing: House Are you a primary manager critical care unit to a significant other at home: No Do you presently have visiting nurse or other home services: No Patient Tobacco Use Status: Never used Tobacco Second Hand Smoke Exposure: Yes Substance Use Type: Marijuana Advance Directives: No Advance Directives Information Provided: No service: No Current occupational status: employed Physical Exam Vital Signs: Vital Signs: Last Vital Signs Temp 97.1 F 02/27/23 21:10 Pulse 105 H 02/27/23 21:10 Resp 18 02/27/23 21:10 BP 141/91 H 02/27/23 21:10 Pulse Ox 97 02/27/23 21:10 O2 Del Method Room Air 02/27/23 21:10 BMI result Body Mass Index 43.0 VITAL SIGNS: Reviewed. GENERAL: Well developed, well nourished, in no acute distress. HEAD: Normocephalic/atraumatic EYES: PERRLA, EOMI EARS: Ext canals without abnormality, TMs non-bulging and non-erythematous NOSE: Nares patent bilateral OROPHARYNX: no oral lesions noted, posterior pharynx clear and non-erythematous without noted tonsillar enlargement/erythema/exudates NECK: Supple, no adenopathy LUNGS: Normal breath sounds. No adventitious sounds or accessory muscle use. SpO2<97> CARDIOVASCULAR: Regular rate and rhythm without noted murmurs ABDOMEN: Soft, non-tender, non-distended with bowel sounds. MUSCULOSKELETAL: No tenderness, deformities, or effusions noted on gross inspection. EXTREMITIES: No cyanosis, clubbing or edema. SKIN: Inspection of the skin reveals no rashes NEUROLOGIC: Alert and oriented x 4. Strength and sensation to light touch were grossly intact x 4. Medications Administered Discontinued Medications Generic Name Dose Route Start Last Admin Trade Name Freq PRN Reason Stop Dose Admin Acetaminophen 975 mg 02/27/23 22:46 02/27/23 22:52 Acetaminophen 325 Mg Tablet PO 02/27/23 22:47 975 mg ONCE ONE Administration Albuterol Sulfate 2 puff 02/27/23 22:46 02/27/23 22:52 Albuterol Sulfate 90 Mcg 8 Gm Inhaler INHALE 02/27/23 22:47 2 puff ONCE ONE Administration Benzonatate 100 mg 02/27/23 22:46 02/27/23 22:52 Benzonatate 100 Mg Capsule PO 02/27/23 22:47 100 mg ONCE ONE Administration Ibuprofen 400 mg 02/27/23 22:46 02/27/23 22:52 Ibuprofen 400 Mg Tablet PO 02/27/23 22:47 400 mg ONCE ONE Administration Medical Decision Making Medical Decision Making [facility] Narrative: 23-year-old female with history and clinical presentation without evidence to suggest asthma exacerbation and most consistent with viral syndrome, DDX: COVID, influenza, RSV. I reviewed all investigations and patient does not have any evidence of acute asthma exacerbation, viral panel is negative, patient is afebrile without tachypnea. She is otherwise discharged home in stable condition with a list of primary care providers that she can call tomorrow. Differential Diagnosis Differential Diagnoses: The differential diagnosis associated with the presentation includes Please see the discussion above Lab Data MDM Lab Attestation statement: I reviewed the patient's lab results. Please see the discussion above Labs: Lab Results 02/27/23 Range/Units 22:19 Influenza Type A (PCR) NEGATIVE (Negative) Influenza Type B (PCR) NEGATIVE (Negative) RSV RNA Qual (PCR) NEGATIVE (Negative) SARS-CoV-2 RNA (RT-PCR) NEGATIVE (Negative) External Record Review External record reviewed: Outpatient record and Prior outpatient labs Discharge Plan Discharge Clinical Impression: Viral syndrome, URI (upper respiratory infection) Patient Disposition: Home, Self-Care Instructions: Upper Respiratory Infection (ED), Viral Syndrome (ED) Additional Instructions: 1. Recommend increasing water intake, utilize [id number] Tylenol/ibuprofen as needed for body aches and temperatures greater than 100.4. Also, I recommend [id number] cough suppressants such as NyQuil or halls. You have been provided with the inhaler and should use this every 4-6 hours over the next 1-2 days. 2. Follow-up with primary care provider. Return to the ER for any worsening symptoms. Prescriptions: No Action albuterol sulfate 2.5 mg /3 mL (0.083 %) solution for nebulization 2.5 mg inhalation Q4-6H PRN (Reason: shortness of breath or wheezing) Qty: 75 0RF albuterol sulfate [ProAir HFA] 90 mcg/actuation HFA aerosol inhaler 2 puff inhalation Q4-6H PRN (Reason: shortness of breath or wheezing) 30 Days Qty: 18 3RF norgestimate-ethinyl estradiol 0.18/0.215/0.25 mg-25 mcg tablet 1 tab PO DAILY Qty: 84 0RF azithromycin 250 mg tablet See Rx Instructions .ROUTE .COMPLEX Qty: 6 0RF Rx Instructions: take 500 mg today (day 1), then 250 mg for 4 days (days 2-5) diphenhydramine HCl [Benadryl] 25 mg capsule 25 mg PO TID PRN (Reason: allergic reaction) Qty: 14 0RF fluticasone propion-salmeterol [Advair Diskus] 500-50 mcg/dose blister with device 2 inh INHALATION BID famotidine 20 mg tablet 20 mg PO BID montelukast [Singulair] 10 mg tablet 10 mg PO BEDTIME clonidine HCl 0.1 mg tablet 0.1 - 0.2 mg PO BEDTIME sertraline 100 mg tablet 100 mg PO DAILY Vyvanse 60 mg capsule 60 mg PO DAILY
[2023-02-27] MEDS: Albuterol Sulfate 90 MCG 8 GM INHALER 2 PUFF INHALE (22:52)
[2023-02-27] MEDS: Acetaminophen 325 MG TABLET 975 MG PO (22:52)
[2023-02-27] MEDS: Ibuprofen 400 MG TABLET PO (22:52)
[2023-02-27] MEDS: Benzonatate 100 MG CAPSULE PO (22:52)
[2023-02-27 23:04] LABS: Influenza A PCR NEGATIVE (Negative); Influenza B PCR NEGATIVE (Negative); Resp Syncy Virus RNA Qual PCR NEGATIVE (Negative); SARS COV2 PCR INHOUSE NEGATIVE (Negative)
== END 2023-02-27 23:35 | disposition home or self-care (01) ==
PROVIDERS: Emergency Provider Student in an Organized Health Care Education/Training Program
DX: B34.9 Viral infection, unspecified (principal); J06.9 Acute upper respiratory infection, unspecified; Z20.822 Contact with and (suspected) exposure to COVID-19; Z20.828 Contact with and (suspected) exposure to other viral communicable diseases; Z79.899 Other long term (current) drug therapy
CPT/HCPCS: 0241U; 99283; 99284

== ENCOUNTER 2023-03-28 19:47 | Emergency (ER) | payer OTHER, SELFPAY ==
[2023-03-28 20:13] VITALS: BP 117/66; PULSE 89; RESP 18; TEMP 36.4; O2SAT 96; BMI 40.8
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
== END 2023-03-28 20:28 | disposition home or self-care (01) ==
LOC: HO.ED 20:28
PROVIDERS: Emergency Provider Internal Medicine
DX: S13.4XXA Sprain of ligaments of cervical spine, initial encounter (principal); V43.62XA Car passenger injured in collision with other type car in traffic accident, initial encounter; Y93.9 Activity, unspecified; Y92.410 Unspecified street and highway as the place of occurrence of the external cause; Y99.9 Unspecified external cause status
CPT/HCPCS: 99282; 99283

== ENCOUNTER 2023-04-13 09:19 | Outpatient (AMB) | payer OTHER, SELFPAY ==
--- NOTE | 2023-04-13 09:26 | A.OFFVIS_ITS ---
Intake Vital Signs 04/13/23 09:37 Height 5 ft 2 in Weight 216 lb BMI 39.5 BP 110/70 Blood Pressure Location Lt brachial Position Sitting Intake Visit Reasons: follow-up chest pain, change of color breast Intake Note: Patient is seen in office for follow up visit, following the breast. 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: No Accompanied by: Family/Other Allergies amoxicillin Allergy (Intermediate, Verified 04/13/23 09:36) Hives azithromycin [Zithromax] Allergy (Intermediate, Verified 04/13/23 09:36) Itching Cephalosporins [CEPHALOSPORINS] Allergy (Intermediate, Verified 04/13/23 09:36) HIVES erythromycin base [ERYTHROMYCIN BASE] Allergy (Intermediate, Verified 04/13/23 09:36) HIVES levofloxacin [From LEVAQUIN] Allergy (Intermediate, Verified 04/13/23 09:36) HIVES Penicillins [PENICILLINS] Allergy (Intermediate, Verified 04/13/23 09:36) HIVES Antibiotic Allergy (Intermediate, Uncoded 04/13/23 09:36) Itching Cefzil Allergy (Intermediate, Uncoded 04/13/23 09:36) Itching Medication List - Last Reconciled 04/13/23 by Milan Valdez MD albuterol sulfate 90 mcg/actuation (ProAir HFA) 2 puffs inhalation Q4-6H PRN 30 days albuterol sulfate 2.5 mg (3 mL) inhalation Q4-6H PRN azithromycin take 500 mg today (day 1), then 250 mg for 4 days (days 2-5) clonidine HCl 0.1 - 0.2 mg PO BEDTIME cyclobenzaprine 10 mg PO TID PRN diphenhydramine HCl (Benadryl) 25 mg PO TID PRN famotidine 20 mg PO BID fluticasone propion-salmeterol 500-50 mcg/dose (Advair Diskus) 2 inhalations inhalation BID lidocaine 5% 1 patch topical DAILY lisdexamfetamine (Vyvanse) 60 mg PO DAILY montelukast (Singulair) 10 mg PO BEDTIME naproxen 500 mg PO BID PRN norgestimate-ethinyl estradiol 0.18/0.215/0.25 mg-25 mcg 1 tab PO DAILY sertraline 100 mg PO DAILY HPI HPI Comments History of Present Illness Details 23-year-old female patient presenting with a palpable mass in the anterior chest X extending into the left breast status post excision revealing dermatofibrosarcoma protuberans. She subsequently returned to the OR for wider excision to assure complete removal on 02/23/2022. This revealed revealed residual DFS P. She underwent a breast MRI on 08/03/2022. This revealed mild scarring in the upper inner soft tissue of the left breast near the midline. No mass or abnormal enhancement was identified. No fluid collections were identified. She was evaluated by [facility] in no further adjuvant treatment was felt to be required. She reports changing in the scar with a whitish change to the skin. She also feels pulsation within her chest. She reports several episodes of passing out when not eating and will be seeing a walk-in clinic today for further evaluation. [facility] Medical History COVID-19 Surgical History History of endoscopy History of excision of mass (01/26/22) History of excision of mass (02/23/22) History of tonsillectomy and adenoidectomy Family History Mother No problems noted. Father No problems noted. Maternal Grandmother Skin cancer Social History Household Members: Family Housing: House Are you a primary acute care certified nursing assistant to a significant other at home: No Do you presently have visiting nurse or other home services: No Patient Tobacco Use Status: Never used Tobacco Second Hand Smoke Exposure: Yes Substance Use Type: Marijuana service: No Current occupational status: employed Review of Systems Const Denies chills, Denies fever(s), Denies headache(s) and Denies poor appetite ENT Denies dizziness and Denies headache(s) Card Denies chest pain, Denies rapid heart rate, Denies palpitations and Denies slow heart rate Resp Denies chest congestion, Denies cough, Denies pain on inspiration and Denies wheezing GI Denies abdominal pain, Denies bloating, Denies change in stool character, Denies constipation, Denies diarrhea, Denies nausea, Denies vomiting and Denies hematemesis Denies nipple discharge Musc Denies back pain, Denies arthralgias, Denies joint swelling and Denies numbness Skin/Breast Reports breast skin changes, Denies breast pain, Reports breast mass, Denies change in breast shape, Denies change in pigmentation, Denies nipple discharge, Denies erythema and Denies rash Neuro Denies dizziness, Denies headache(s) and Denies numbness Psych Denies anxiety and Denies depression Endo Denies palpitations Rob/Lymph Denies easy bleeding, Denies easy bruising and Denies lymphadenopathy Aller/Immun Denies wheezing Physical Exam Vital Signs: Last Vital Signs BP 110/70 04/13/23 09:37 BMI result Body Mass Index 39.5 Const General: no acute distress Nutritional Appearance: well nourished Orientation/consciousness: patient oriented x3 Limitations: no limitations Chest Other: Excision site in the left medial breast is clean and intact; incision is much softer with no evidence of keloid hypertrophy. The scar has widened in the [place] ter of the chest. No palpable masses appreciated. No new subcutaneous lesions are appreciated. Chest/axillae images: 1. Incision which is widened but soft with no palpable nodules appreciated. No evidence of recurrent disease. Resp Effort & Inspection: normal respiratory effort, no audible wheezes, no cough and no respiratory distress GI Inspection: Yes normal to inspection Skin Other: Warm, dry, no rash, left breast as noted above Neuro General: patient oriented x3 Extrem Other: No edema Assessment & Plan Assessment & Plan (1) Dermatofibrosarcoma protuberans of chest: Comment: removed 02/2022 Code(s): C44.599 - Other specified malignant neoplasm of skin of other part of trunk Plan Patient returns for follow-up examination after wide excision of a with dermatofibrosarcoma protuberans of the left chest. Her wounds remained clean and intact. There is expected thickening of the scar which is gradually softening. No suspicious findings are identified. I recommended obtaining an ultrasound of the region to evaluate for any subcutaneous nodules. She expressed understanding and agrees with the plan. I will call her with the results once available. Orders: Orders US breast LT limited Today C44.599 - Other specified malignant neoplasm of skin of other part of trunk Coding Level of Care Code Est Pt Level 3 (45521) Diagnoses Dermatofibrosarcoma protuberans of chest C44.599
[2023-04-13 09:37] VITALS: BP 110/70; BMI 39.5
== END 2023-04-13 09:47 | disposition home or self-care (01) ==
PROVIDERS: Visit Provider Surgery
DX: C44.599 Other specified malignant neoplasm of skin of other part of trunk (principal)
CPT/HCPCS: 99213

== ENCOUNTER → 2023-04-13 09:19 | Outpatient (BNVA) | payer OTHER, SELFPAY | PROVIDERS: Visit Provider Surgery | DX: Z85.828 Personal history of other malignant neoplasm of skin (principal) | CPT/HCPCS: 99212 ==

== ENCOUNTER 2023-04-30 22:48 | Emergency (ER) | payer OTHER, SELFPAY ==
--- NOTE | 2023-04-30 | ECG_ITS ---
Test Reason : SYNCOPEE Blood Pressure : / mmHG Vent. Rate : 087 BPM Atrial Rate : 087 BPM P-R Int : 128 ms QRS Dur : 074 ms QT Int : 370 ms P-R-T Axes : 011 017 029 degrees QTc Int : 445 ms Normal sinus rhythm Normal ECG No previous ECGs available Referred By: Generic ED Physician Electronically Signed By:MORALES PURDY
[2023-04-30 22:57] VITALS: BP 124/64; PULSE 88; RESP 18; TEMP 36.5; O2SAT 97; BMI 39.2
[2023-04-30 23:27] LABS: MANUAL DIFF FLAG NO
[2023-04-30 23:28] LABS: Basophils Percent Auto 0.5 % (0-2); Eosinophils Absolute Auto 0.4 X10*3/uL (0.0-0.4); Eosinophils Percent Auto 4.5 % (0-4); Hematocrit 37.1 % (37.0-47.0); Hemoglobin 12.4 g/dl (12.0-16.0); Imm Gran Abs Auto 0.02 X10*3/uL (0.00-0.03); Imm Gran Pct Auto 0.2 % (0.0-0.4); Lymphocytes Absolute Auto 2.5 X10*3/uL (1.2-4.9); Lymphocytes Percent Auto 31.1 % (20-40); Mean Corpuscular HGB Conc 33.4 g/dl (31.0-35.0); Mean Corpuscular Hemoglobin 28.8 pg (27.0-33.0); Mean Corpuscular Volume 86.3 fL (80.0-98.0); Mean Platelet Volume 10.7 fL (9.4-12.3); Monocytes Absolute Auto 0.6 X10*3/uL (0.1-1.2); Monocytes Percent Auto 6.8 % (2-11); Neutrophils Absolute Auto 4.6 x10*3/uL (2.0-8.3); Neutrophils Percent Auto 56.9 % (45-73); Platelet Count 349 X10*3/uL (160-400); Red Cell Distribution Width 13.2 % (11.0-16.0)
[2023-04-30 23:46] LABS: Alanine Aminotransferase 20 U/L (0-31); Albumin Level 4.3 g/dL (3.5-5.0); Alkaline Phosphatase 66 U/L (39-117); Anion Gap 12 (12-20); Aspartate Amino Transferase 18 U/L (5-31); Bilirubin Total 0.2 mg/dL (0.0-1.0); Blood Urea Nitrogen 15 mg/dL (9-16); Calcium 8.9 mg/dL (8.4-10.2); Carbon Dioxide 23 mmol/L (22-29); Chloride 108 mmol/L (96-108); Creatinine Clr Calc Pharmacy 116.4; Estimated Glomerular Filt Rate > 60; Glucose Random 112 mg/dL (60-115); Potassium 4.1 mmol/L (3.3-5.1); Sodium 139 mmol/L (135-145); Total Protein 7.2 g/dL (6.5-8.0)
--- NOTE | 2023-05-01 01:20 | ED_ITS ---
HPI - Syncope General Chief Complaint: Syncope Stated Complaint: Syncope Time Seen by Provider: 05/01/23 01:14 Source: patient Mode of arrival: ambulatory Limitations: no limitations History of Present Illness HPI narrative: Patient history of depression anxiety complaining of frequent syncope episode over last 3 months multiple times says blood sugar goes down and she gets better if she eats in the ER on arrival patient's blood glucose was 112 but she claims that after that she passed out. No seizure activity no postictal confusion patient been on same medication as before for depression and anxiety does not think anxiety is a problem Related Data Home Medications Medication Instructions Recorded Confirmed famotidine 20 mg tablet 20 mg PO BID 09/17/21 04/13/23 montelukast 10 mg tablet 10 mg PO BEDTIME 10/28/21 04/13/23 (Singulair) fluticasone 500 mcg-salmeterol 50 2 inh inhalation BID 02/17/22 04/13/23 mcg/dose blistr powdr for inhalation (Advair Diskus) clonidine HCl 0.1 mg tablet 0.1 - 0.2 mg PO BEDTIME insomnia 04/07/22 04/13/23 lisdexamfetamine 60 mg capsule 60 mg PO DAILY 04/07/22 04/13/23 (Vyvanse) sertraline 100 mg tablet 100 mg PO DAILY 04/07/22 04/13/23 Previous Rx's Medication Instructions Recorded albuterol sulfate 2.5 mg/3 mL 2.5 mg (3 mL) inhalation Q4-6H PRN 09/24/21 (0.083 %) solution for nebulization shortness of breath or wheezing #75 mL albuterol sulfate 90 mcg/actuation 2 puff inhalation Q4-6H PRN 11/02/21 aerosol inhaler (ProAir HFA) shortness of breath or wheezing 30 days #18 grams norgestimate 0.18 mg/0.215 mg/0.25 1 tab PO DAILY #84 tabs 04/18/22 mg-ethinyl estradiol 25 mcg tablet azithromycin 250 mg tablet See Rx Instructions PO .COMPLEX #6 06/30/22 tabs diphenhydramine HCl 25 mg capsule 25 mg PO TID PRN allergic reaction 06/30/22 (Benadryl) #14 caps cyclobenzaprine 10 mg tablet 10 mg PO TID PRN muscle spasm #14 03/28/23 tabs lidocaine 5 % topical patch 1 patch topical DAILY #15 ea 03/28/23 naproxen 500 mg tablet 500 mg PO BID PRN pain #20 tabs 03/28/23 Allergies Allergy/AdvReac Type Severity Reaction Status Date / Time amoxicillin Allergy Intermediate Hives Verified 04/30/23 22:57 azithromycin [Zithromax] Allergy Intermediate Itching Verified 04/30/23 22:57 Cephalosporins Allergy Intermediate HIVES Verified 04/30/23 22:57 [CEPHALOSPORINS] erythromycin base Allergy Intermediate HIVES Verified 04/30/23 22:57 [ERYTHROMYCIN BASE] levofloxacin [From LEVAQUIN] Allergy Intermediate HIVES Verified 04/30/23 22:57 Penicillins [PENICILLINS] Allergy Intermediate HIVES Verified 04/30/23 22:57 Antibiotic Allergy Intermediate Itching Uncoded 04/13/23 09:36 Cefzil Allergy Intermediate Itching Uncoded 04/13/23 09:36 PMFSH Past Medical History Medical History COVID-19 Surgical History History of excision of mass (02/23/22) History of excision of mass (01/26/22) History of endoscopy History of tonsillectomy and adenoidectomy Family History Family History Mother No problems noted. Father No problems noted. Maternal Grandmother Skin cancer Social History Social History Household Members: Family Housing: House Are you a primary family day care worker to a significant other at home: No Do you presently have visiting nurse or other home services: No Patient Tobacco Use Status: Never used Tobacco Second Hand Smoke Exposure: Yes Substance Use Type: Marijuana Advance Directives: No Advance Directives Information Provided: Yes service: No Current occupational status: employed Physical Exam 2 Vital Signs: Vital Signs: Last Vital Signs Temp 97.9 F 05/01/23 02:16 Pulse 87 05/01/23 02:16 Resp 16 05/01/23 02:16 BP 127/77 05/01/23 02:16 Pulse Ox 99 05/01/23 02:16 O2 Del Method Room Air 05/01/23 02:16 BMI result Body Mass Index 39.2 Appearance: Alert. Oriented X3. No acute distress. Eyes: PERRLA, No Nystagmus ENT: Pharynx normal. Oral Mucosa moist Neck: Normal inspection. Neck supple. CVS: Normal heart rate and rhythm. Pulses normal. No murmur or rub or gallop orthostatic blood pressure normal Respiratory: No respiratory distress. Equal air entry bilateral, no wheezing/rales/rhonchi Abdomen: Soft and nontender. Bowel sounds are present, no mass palpable, no CVA tenderness Skin: Skin warm and dry. Normal skin color. Normal skin turgor. Extremities: No lower extremity edema. No calf tenderness Neuro: Oriented X 3. No motor deficit. No sensory deficit.No cerebellar signs , cranial nerves II-XII intact Medical Decision Making Medical Decision Making [facility] Narrative: Patient has frequent syncope episode likely psychogenic no murmur noticed EKG was normal blood sugar was also N labs were stable normal orthostatics patient advised to follow with PCP/therapist/neurology while in the ER witnessed by nurse and tech patient had 3 episodes of passing out with eye fluttering but no seizure activities patient started crying after the episode likely psychogenic Differential Diagnosis Differential Diagnoses: The differential diagnosis associated with the presentation includes Cardiac arrhythmias/seizure/anxiety/psychogenic Lab Data [facility] [place] Lab Attestation statement: I reviewed the patient's lab results. 04/30/23 23:24 04/30/23 23:24 Labs: Lab Results 04/30/23 05/01/23 Range/Units 23:24 02:16 WBC 8.0 (4.8-10.8) X10*3/uL RBC 4.30 (4.20-5.50) X10*6/uL Hgb 12.4 (12.0-16.0) g/dl Hct 37.1 (37.0-47.0) % MCV 86.3 (80.0-98.0) fL MCH 28.8 (27.0-33.0) pg MCHC 33.4 (31.0-35.0) g/dl RDW 13.2 (11.0-16.0) % Plt Count 349 (160-400) X10*3/uL MPV 10.7 (9.4-12.3) fL Immature Gran % (Auto) 0.2 (0.0-0.4) % Neut % (Auto) 56.9 (45-73) % Lymph % (Auto) 31.1 (20-40) % [place] % (Auto) 6.8 (2-11) % Eos % (Auto) 4.5 H (0-4) % Baso % (Auto) 0.5 (0-2) % Lymph # (Auto) 2.5 (1.2-4.9) X10*3/uL [place] # (Auto) 0.6 (0.1-1.2) X10*3/uL Eos # (Auto) 0.4 (0.0-0.4) X10*3/uL Baso # (Auto) 0.0 (0.0-0.2) X10*3/uL Abs Immat Gran (auto) 0.02 (0.00-0.03) X10*3/uL Absolute Neuts (auto) 4.6 (2.0-8.3) x10*3/uL Absolute Nucleated RBC 0.000 (0.0-0.012) X10*3/uL Nucleated RBC % (auto) 0.0 (0.0-0.2) /100WBC Sodium 139 (135-145) mmol/L Potassium 4.1 (3.3-5.1) mmol/L Chloride 108 (96-108) mmol/L Carbon Dioxide 23 (22-29) mmol/L Anion Gap 12 (12-20) BUN 15 (9-16) mg/dL Creatinine 0.84 (0.5-1.4) mg/dL Estim Creat Clear Calc 116.4 Estimated GFR > 60 POC Glucose 113 (60-115) mg/dL Random Glucose 112 (60-115) mg/dL Calcium 8.9 (8.4-10.2) mg/dL Total Bilirubin 0.2 (0.0-1.0) mg/dL AST 18 (5-31) U/L ALT 20 (0-31) U/L Alkaline Phosphatase 66 (39-117) U/L Total Protein 7.2 (6.5-8.0) g/dL Albumin 4.3 (3.5-5.0) g/dL Independent Interpretation I performed an independent interpretation of an: EKG Interpretation: Normal sinus rhythm heart rate 87 beats per minute normal interval normal axis no acute ST changes or acute ischemia Discharge Plan Discharge Clinical Impression: Psychogenic nonepileptic seizure Patient Disposition: Home, Self-Care Instructions: Syncope (ED), Conversion Disorder (ED) Additional Instructions: Cause of syncope episode not clear Possible seizure/pseudoseizures/anxiety Follow with PCP/neurology Prescriptions: No Action albuterol sulfate 2.5 mg /3 mL (0.083 %) solution for nebulization 2.5 mg inhalation Q4-6H PRN (Reason: shortness of breath or wheezing) Qty: 75 0RF albuterol sulfate [ProAir HFA] 90 mcg/actuation HFA aerosol inhaler 2 puff inhalation Q4-6H PRN (Reason: shortness of breath or wheezing) 30 Days Qty: 18 3RF norgestimate-ethinyl estradiol 0.18/0.215/0.25 mg-25 mcg tablet 1 tab PO DAILY Qty: 84 0RF azithromycin 250 mg tablet See Rx Instructions .ROUTE .COMPLEX Qty: 6 0RF Rx Instructions: take 500 mg today (day 1), then 250 mg for 4 days (days 2-5) diphenhydramine HCl [Benadryl] 25 mg capsule 25 mg PO TID PRN (Reason: allergic reaction) Qty: 14 0RF fluticasone propion-salmeterol [Advair Diskus] 500-50 mcg/dose blister with device 2 inh INHALATION BID cyclobenzaprine 10 mg tablet 10 mg PO TID PRN (Reason: muscle spasm) Qty: 14 0RF lidocaine 5 % adhesive patch,medicated 1 patch topical DAILY Qty: 15 0RF Rx Instructions: leave on most painful area for up to 12 hrs naproxen 500 mg tablet 500 mg PO BID PRN (Reason: pain) Qty: 20 0RF famotidine 20 mg tablet 20 mg PO BID montelukast [Singulair] 10 mg tablet 10 mg PO BEDTIME clonidine HCl 0.1 mg tablet 0.1 - 0.2 mg PO BEDTIME sertraline 100 mg tablet 100 mg PO DAILY Vyvanse 60 mg capsule 60 mg PO DAILY Referrals: Jeri Skelton MD [Physician] - 2 weeks
[2023-05-01 01:51] VITALS: BP 112/63; PULSE 77
[2023-05-01 01:52] VITALS: BP 109/71; PULSE 80
[2023-05-01 01:53] VITALS: BP 111/65; PULSE 92
[2023-05-01 02:16] VITALS: BP 127/77; PULSE 87; RESP 16; TEMP 36.6; O2SAT 99
[2023-05-01 02:21] LABS: Glucose, Whole Blood 113 mg/dL (60-115)
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
[2023-05-01] MEDS: LORazepam 1 MG TABLET 2 MG PO (02:32)
== END 2023-05-01 03:54 | disposition home or self-care (01) ==
PROVIDERS: Emergency Provider Internal Medicine
DX: G40.409 Other generalized epilepsy and epileptic syndromes, not intractable, without status epilepticus (principal); R55 Syncope and collapse; F33.1 Major depressive disorder, recurrent, moderate; Z79.899 Other long term (current) drug therapy
CPT/HCPCS: 36415; 80053; 82947; 85025; 93005; 99284

== ENCOUNTER 2023-05-02 14:59 | Outpatient (REF) | payer OTHER, SELFPAY ==
--- NOTE | ~2023-05-02 | US_ITS ---
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 Assess for recurrent mass or fluid collection. Patient having recurrent pain. COMPARISON: None available. TECHNIQUE: Ultrasound of the left medial breast is performed with real-time mckeon scale imaging and color Doppler. Attention was paid to the left upper inner quadrant, over the scarring and in the region of pain. FINDINGS: There is no focal suspicious finding. There is no solid mass, or fluid collection. Scar tissue is evident. US/US breast LT limited mamm only IMPRESSION: No fluid collection or recurrent mass evident. ASSESSMENT: BI-RADS 1: Negative RECOMMENDATION: 1. Patient should be managed based on the clinical impression.
== END 2023-05-02 15:00 | disposition home or self-care (01) ==
LOC: HO.MAMMO 14:59
PROVIDERS: Visit Provider Surgery
DX: C44.599 Other specified malignant neoplasm of skin of other part of trunk (principal)
CPT/HCPCS: 76642

== ENCOUNTER → 2023-05-02 15:00 | Outpatient (BNV) | payer OTHER, SELFPAY | PROVIDERS: Visit Provider Radiology Diagnostic Radiology | DX: N64.4 Mastodynia (principal) | CPT/HCPCS: 76642 ==

== ENCOUNTER 2023-05-06 04:34 | Emergency (ER) | payer OTHER, SELFPAY ==
--- NOTE | 2023-05-06 04:47 | ECG_ITS ---
Test Reason : SEIZURE Blood Pressure : / mmHG Vent. Rate : 089 BPM Atrial Rate : 089 BPM P-R Int : 144 ms QRS Dur : 076 ms QT Int : 358 ms P-R-T Axes : 019 026 034 degrees QTc Int : 435 ms Normal sinus rhythm Normal ECG When compared with ECG of 30-APR-2023 23:15, No significant change was found Referred By: Generic ED Physician Electronically Signed By:MORALES PURDY
[2023-05-06 04:48] VITALS: BMI 35.4
[2023-05-06 05:12] VITALS: BP 128/84; PULSE 91; RESP 20; TEMP 36.4; O2SAT 99
[2023-05-06 05:40] LABS: Alanine Aminotransferase 22 U/L (0-31); Albumin Level 4.4 g/dL (3.5-5.0); Alkaline Phosphatase 69 U/L (39-117); Anion Gap 14 (12-20); Aspartate Amino Transferase 17 U/L (5-31); Bilirubin Total 0.4 mg/dL (0.0-1.0); Blood Urea Nitrogen 15 mg/dL (9-16); Calcium 9.4 mg/dL (8.4-10.2); Carbon Dioxide 23 mmol/L (22-29); Chloride 106 mmol/L (96-108); Estimated Glomerular Filt Rate > 60; Glucose Random 104 mg/dL (60-115); Potassium 3.9 mmol/L (3.3-5.1); Sodium 139 mmol/L (135-145); Total Protein 7.4 g/dL (6.5-8.0)
--- NOTE | 2023-05-06 05:44 | PC.NURSE ---
This nurse was called to the bedside and observed pt during seizure episode . Eyes were rolled towards the back of the head. No body stiffness or jerky movements observed. No LOC or breathing issues noted. No loss of bladder or bowel control noted. Vitals remind stabled aside from HR increasing to 120bpm. Pt stated to mom at the bedside Dont touch my face. I hate it when you touch my face as mom was comforting pt during this episode. Pt then continued to roll eyes again. Pt reported feeling lightheaded after the episode. Pt aox4 immediately after epidosde. VSS. NSR noted on the monitor with HR 86. Breaths regular, even and unlabored. No apparent distress noted. Labs collected and sent. Seizure precautions in place.
[2023-05-06 05:50] LABS: Troponin-I High Sensitivity < 2.7 ng/L (<3.5-17.0)
[2023-05-06 05:51] LABS: Basophils Absolute Auto 0.1 X10*3/uL (0.0-0.2); Basophils Percent Auto 0.7 % (0-2); Eosinophils Absolute Auto 0.4 X10*3/uL (0.0-0.4); Eosinophils Percent Auto 3.9 % (0-4); Hematocrit 38.8 % (37.0-47.0); Imm Gran Abs Auto 0.02 X10*3/uL (0.00-0.03); Imm Gran Pct Auto 0.2 % (0.0-0.4); Lymphocytes Absolute Auto 3.2 X10*3/uL (1.2-4.9); Lymphocytes Percent Auto 35.9 % (20-40); Mean Corpuscular HGB Conc 33.5 g/dl (31.0-35.0); Mean Corpuscular Hemoglobin 28.7 pg (27.0-33.0); Mean Corpuscular Volume 85.7 fL (80.0-98.0); Mean Platelet Volume 10.6 fL (9.4-12.3); Monocytes Absolute Auto 0.5 X10*3/uL (0.1-1.2); Monocytes Percent Auto 5.7 % (2-11); Neutrophils Absolute Auto 4.8 x10*3/uL (2.0-8.3); Neutrophils Percent Auto 53.6 % (45-73); Platelet Count 337 X10*3/uL (160-400); Red Blood Count 4.53 X10*6/uL (4.20-5.50); Red Cell Distribution Width 13.2 % (11.0-16.0); White Blood Count 8.9 X10*3/uL (4.8-10.8)
[2023-05-06 06:06] LABS: MANUAL DIFF FLAG NO
[2023-05-06 06:29] VITALS: BP 102/56; PULSE 91; RESP 16; O2SAT 97
--- NOTE | 2023-05-06 07:27 | ED_ITS ---
HPI - Seizure General Chief Complaint: Seizure Stated Complaint: Seizures Time Seen by Provider: 05/06/23 07:00 Source: patient and family (Mother) Mode of arrival: ambulatory History of Present Illness HPI Narrative: 23-year-old female with ongoing history over the past 2 months mild disorganized movement, mother reports that the eyes roll into the back of the head, there is increased respiratory rate and heart rate and mother is concerned that this may be associated with recent increase in sertraline by psychologist, but also thinks that these are associated with stressful situations. Seizure History: No Place: Restaurant Related Data Home Medications Medication Instructions Recorded Confirmed famotidine 20 mg tablet 20 mg PO BID 09/17/21 04/13/23 montelukast 10 mg tablet 10 mg PO BEDTIME 10/28/21 04/13/23 (Singulair) fluticasone 500 mcg-salmeterol 50 2 inh inhalation BID 02/17/22 04/13/23 mcg/dose blistr powdr for inhalation (Advair Diskus) clonidine HCl 0.1 mg tablet 0.1 - 0.2 mg PO BEDTIME insomnia 04/07/22 04/13/23 lisdexamfetamine 60 mg capsule 60 mg PO DAILY 04/07/22 04/13/23 (Vyvanse) sertraline 100 mg tablet 100 mg PO DAILY 04/07/22 04/13/23 Previous Rx's Medication Instructions Recorded albuterol sulfate 2.5 mg/3 mL 2.5 mg (3 mL) inhalation Q4-6H PRN 09/24/21 (0.083 %) solution for nebulization shortness of breath or wheezing #75 mL albuterol sulfate 90 mcg/actuation 2 puff inhalation Q4-6H PRN 11/02/21 aerosol inhaler (ProAir HFA) shortness of breath or wheezing 30 days #18 grams norgestimate 0.18 mg/0.215 mg/0.25 1 tab PO DAILY #84 tabs 04/18/22 mg-ethinyl estradiol 25 mcg tablet azithromycin 250 mg tablet See Rx Instructions PO .COMPLEX #6 06/30/22 tabs diphenhydramine HCl 25 mg capsule 25 mg PO TID PRN allergic reaction 06/30/22 (Benadryl) #14 caps cyclobenzaprine 10 mg tablet 10 mg PO TID PRN muscle spasm #14 03/28/23 tabs lidocaine 5 % topical patch 1 patch topical DAILY #15 ea 03/28/23 naproxen 500 mg tablet 500 mg PO BID PRN pain #20 tabs 03/28/23 Allergies Allergy/AdvReac Type Severity Reaction Status Date / Time amoxicillin Allergy Intermediate Hives Verified 04/30/23 22:57 azithromycin [Zithromax] Allergy Intermediate Itching Verified 04/30/23 22:57 Cephalosporins Allergy Intermediate HIVES Verified 04/30/23 22:57 [CEPHALOSPORINS] erythromycin base Allergy Intermediate HIVES Verified 04/30/23 22:57 [ERYTHROMYCIN BASE] levofloxacin [From LEVAQUIN] Allergy Intermediate HIVES Verified 04/30/23 22:57 Penicillins [PENICILLINS] Allergy Intermediate HIVES Verified 04/30/23 22:57 Antibiotic Allergy Intermediate Itching Uncoded 04/13/23 09:36 Cefzil Allergy Intermediate Itching Uncoded 04/13/23 09:36 Review of Systems 2 Review of Systems: Pertinent positives and negatives as stated in [facility] [place] Past Medical History Source: nursing notes reviewed Medical History COVID-19 Surgical History History of excision of mass (02/23/22) History of excision of mass (01/26/22) History of endoscopy History of tonsillectomy and adenoidectomy Family History Family History Mother No problems noted. Father No problems noted. Maternal Grandmother Skin cancer Social History Social History Household Members: Family Housing: House Are you a primary critical care unit manager to a significant other at home: No Do you presently have visiting nurse or other home services: No Patient Tobacco Use Status: Never used Tobacco Smoked in Last 30 Days: No Second Hand Smoke Exposure: Yes Use of substances other than those prescribed or required for medical reasons: No Substance Use Type: Marijuana Advance Directives: No Advance Directives Information Provided: No Patient : No service: No Current occupational status: employed Physical Exam 2 Vital Signs: Vital Signs: Last Vital Signs Temp 97.6 F 05/06/23 05:12 Pulse 91 09/16/23 06:29 Resp 16 05/06/23 06:29 BP 102/56 L 05/06/23 06:29 Pulse Ox 97 05/06/23 06:29 O2 Del Method Room Air 05/06/23 06:29 BMI result Body Mass Index 35.4 VITAL SIGNS: Reviewed. GENERAL: Well developed, well nourished, in no acute distress. HEAD: Normocephalic/atraumatic EYES: PERRLA, EOMI EARS: Ext canals without abnormality, TMs non-bulging and non-erythematous NOSE: Nares patent bilateral OROPHARYNX: no oral lesions noted, posterior pharynx clear and non-erythematous without noted tonsillar enlargement/erythema/exudates NECK: Supple, no adenopathy LUNGS: Normal breath sounds. No adventitious sounds or accessory muscle use. SpO2<97> CARDIOVASCULAR: Regular rate and rhythm without noted murmurs ABDOMEN: Soft, non-tender, non-distended with bowel sounds. MUSCULOSKELETAL: No tenderness, deformities, or effusions noted on gross inspection. EXTREMITIES: No cyanosis, clubbing or edema. SKIN: Inspection of the skin reveals no rashes NEUROLOGIC: Alert and oriented x 4. Strength and sensation to light touch were grossly intact x 4, no postictal period noted, cranial nerves 2-12 are grossly intact. Medical Decision Making Medical Decision Making MDM Narrative: 23-year-old female with history and clinical presentation most suspicious for psychogenic, nonepileptic seizures. Patient was recently seen on 05/01. Patient has once again been evaluated for any evidence infection, anemia, or electrolyte abnormalities as possibly etiologies. There are no neurologic deficits to raise concern for intracranial abnormalities. Patient has not been noted to be postictal. I reviewed all investigations and hematologic indices are negative for leukocytosis/left shift, there is no anemia or thrombocytopenia and patient is afebrile and has no reported symptoms that which the chest in underlying infection. Chemistry indices are grossly within normal limits as there is no evidence of TOMASA, electrolyte or liver enzyme abnormalities, troponin is undetectable. EKG has been reviewed and there is no concern for possible QT/QTC or QRS prolongation secondary to medication or otherwise. Urinalysis is contaminated and otherwise patient is discharged home with suspected nonepileptic seizures which will require further evaluation by her outpatient psychologist as well as the referral given to her for Neurology. Differential Diagnosis Differential Diagnoses: The differential diagnosis associated with the presentation includes Please see the discussion above Admission/Observation Consideration of admission/observation: Escalation of care including admission/observation considered Please see the discussion above Lab Data MDM Lab Attestation statement: I reviewed the patient's lab results. Please see the discussion above 05/06/23 05:46 05/06/23 05:20 Labs: Lab Results 05/06/23 05/06/23 05/06/23 Range/Units 05:20 05:46 08:36 WBC 8.9 (4.8-10.8) X10*3/uL RBC 4.53 (4.20-5.50) X10*6/uL Hgb 13.0 (12.0-16.0) g/dl Hct 38.8 (37.0-47.0) % MCV 85.7 (80.0-98.0) fL MCH 28.7 (27.0-33.0) pg MCHC 33.5 (31.0-35.0) g/dl RDW 13.2 (11.0-16.0) % Plt Count 337 (160-400) X10*3/uL MPV 10.6 (9.4-12.3) fL Immature Gran % (Auto) 0.2 (0.0-0.4) % Neut % (Auto) 53.6 (45-73) % Lymph % (Auto) 35.9 (20-40) % [place] % (Auto) 5.7 (2-11) % Eos % (Auto) 3.9 (0-4) % Baso % (Auto) 0.7 (0-2) % Lymph # (Auto) 3.2 (1.2-4.9) X10*3/uL [place] # (Auto) 0.5 (0.1-1.2) X10*3/uL Eos # (Auto) 0.4 (0.0-0.4) X10*3/uL Baso # (Auto) 0.1 (0.0-0.2) X10*3/uL Abs Immat Gran (auto) 0.02 (0.00-0.03) X10*3/uL Absolute Neuts (auto) 4.8 (2.0-8.3) x10*3/uL Absolute Nucleated RBC 0.000 (0.0-0.012) X10*3/uL Nucleated RBC % (auto) 0.0 (0.0-0.2) /100WBC Sodium 139 (135-145) mmol/L Potassium 3.9 (3.3-5.1) mmol/L Chloride 106 (96-108) mmol/L Carbon Dioxide 23 (22-29) mmol/L Anion Gap 14 (12-20) BUN 15 (9-16) mg/dL Creatinine 0.78 (0.5-1.4) mg/dL Estim Creat Clear Calc 122.0 Estimated GFR > 60 Random Glucose 104 (60-115) mg/dL Estimat Average Glucose 105 mg/dL Hemoglobin A1c % 5.3 (<6.0) % Calcium 9.4 (8.4-10.2) mg/dL Total Bilirubin 0.4 (0.0-1.0) mg/dL AST 17 (5-31) U/L ALT 22 (0-31) U/L Alkaline Phosphatase 69 (39-117) U/L Troponin I High Sens < 2.7 (<3.5-17.0) ng/L Total Protein 7.4 (6.5-8.0) g/dL Albumin 4.4 (3.5-5.0) g/dL Urine Color Yellow Urine Appearance Cloudy Urine pH 6.0 (5.0-9.0) Ur Specific [place] 1.015 (1.005-1.025) Urine Protein Negative (Neg-Trace) mg/dL Urine Glucose (UA) Negative (Negative) mg/dL Urine Ketones Negative (Negative) mg/dL Urine Blood Negative (Negative) Urine Nitrite Negative (Negative) Ur Leukocyte Esterase Small (1+) H (Negative) Urine RBC 0-2 (0-2) /HPF Urine WBC 21-50 H (0-5) /HPF Ur Squamous Epith Cells 11-20 (0-2) /HPF Urine Bacteria 1+ (None Seen) Hyaline Casts 0-2 (0-2) /LPF Independent Interpretation I performed an independent interpretation of an: EKG Interpretation: Normal sinus rhythm, HR-89, no STEMI, [place]/QRS/QTC and QT within normal limits. Discharge Plan Discharge Clinical Impression: Psychogenic nonepileptic seizure Patient Disposition: Home, Self-Care Instructions: Nonepileptic Seizures (ED) Additional Instructions: 1. Follow-up with the psychologist regarding your concerns about the medication. 2. You were provided with a referral at your visit 5 days ago. There is another located below and you should contact them on Monday morning. 3. Reach out to your primary care doctor. Return to the ER for any worsening symptoms. Prescriptions: No Action albuterol sulfate 2.5 mg /3 mL (0.083 %) solution for nebulization 2.5 mg inhalation Q4-6H PRN (Reason: shortness of breath or wheezing) Qty: 75 0RF albuterol sulfate [ProAir HFA] 90 mcg/actuation HFA aerosol inhaler 2 puff inhalation Q4-6H PRN (Reason: shortness of breath or wheezing) 30 Days Qty: 18 3RF norgestimate-ethinyl estradiol 0.18/0.215/0.25 mg-25 mcg tablet 1 tab PO DAILY Qty: 84 0RF azithromycin 250 mg tablet See Rx Instructions .ROUTE .COMPLEX Qty: 6 0RF Rx Instructions: take 500 mg today (day 1), then 250 mg for 4 days (days 2-5) diphenhydramine HCl [Benadryl] 25 mg capsule 25 mg PO TID PRN (Reason: allergic reaction) Qty: 14 0RF fluticasone propion-salmeterol [Advair Diskus] 500-50 mcg/dose blister with device 2 inh INHALATION BID cyclobenzaprine 10 mg tablet 10 mg PO TID PRN (Reason: muscle spasm) Qty: 14 0RF lidocaine 5 % adhesive patch,medicated 1 patch topical DAILY Qty: 15 0RF Rx Instructions: leave on most painful area for up to 12 hrs naproxen 500 mg tablet 500 mg PO BID PRN (Reason: pain) Qty: 20 0RF famotidine 20 mg tablet 20 mg PO BID montelukast [Singulair] 10 mg tablet 10 mg PO BEDTIME clonidine HCl 0.1 mg tablet 0.1 - 0.2 mg PO BEDTIME sertraline 100 mg tablet 100 mg PO DAILY Vyvanse 60 mg capsule 60 mg PO DAILY Referrals: Jeri Skelton MD [Physician] -
[2023-05-06 07:33] LABS: Estimated Average Glucose 105 mg/dL; Hemoglobin A1c % 5.3 % (<6.0)
[2023-05-06 08:42] LABS: Appearance Urine Cloudy; Color Urine Yellow; Glucose Urine UA Negative (Negative); Leukocyte Esterase Urine Small (1+) (Negative); Nitrite Urine Negative (Negative); Specific Gravity - Urine 1.015 (1.005-1.025); UMIC TRIGGER UACC YES; Urine Blood Negative (Negative); Urine Ketones Negative (Negative); Urine Protein Negative (Neg-Trace)
[2023-05-06 08:59] LABS: Bacteria Urine 1+ (None Seen); Hyaline Casts Urine 0-2 /LPF (0-2); RBC Urine 0-2 /HPF (0-2); UACC Culture Trigger YES; WBC Urine 21-50 /HPF (0-5)
== END 2023-05-06 09:05 | disposition home or self-care (01) ==
PROVIDERS: Emergency Provider Student in an Organized Health Care Education/Training Program
DX: R56.9 Unspecified convulsions (principal); Z79.899 Other long term (current) drug therapy
CPT/HCPCS: 36415; 80053; 81001; 83036; 84484; 85025; 87086; 87147; 93005; 99284

== ENCOUNTER 2023-09-27 10:00 | Outpatient (AMB) | payer OTHER, SELFPAY ==
[2023-09-27 10:23] VITALS: BP 100/66; PULSE 98; O2SAT 99; BMI 38.3
--- NOTE | 2023-09-27 10:23 | MHC.PC.OV ---
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 Intake Note: Pt is here today as a New Patient to est care/ PE Allergies amoxicillin Allergy (Intermediate, Verified 09/27/23 10:26) Hives azithromycin [Zithromax] Allergy (Intermediate, Verified 09/27/23 10:26) Itching Cephalosporins [CEPHALOSPORINS] Allergy (Intermediate, Verified 09/27/23 10:26) HIVES erythromycin base [ERYTHROMYCIN BASE] Allergy (Intermediate, Verified 09/27/23 10:26) HIVES levofloxacin [From LEVAQUIN] Allergy (Intermediate, Verified 09/27/23 10:26) HIVES Penicillins [PENICILLINS] Allergy (Intermediate, Verified 09/27/23 10:26) HIVES Antibiotic Allergy (Intermediate, Uncoded 09/27/23 10:26) Itching Cefzil Allergy (Intermediate, Uncoded 09/27/23 10:26) Itching Medication List - Last Reconciled 10/04/23 by Lisa Kirkpatrick MD albuterol sulfate 2.5 mg (3 mL) inhalation Q4-6H PRN diphenhydramine HCl (Sleep Aid (diphenhydramine)) 25 mg PO BEDTIME PRN escitalopram oxalate 10 mg PO DAILY fluticasone propion-salmeterol 250-50 mcg/dose (Advair Diskus) 1 ea inhalation BID guanfacine ER 2 mg PO DAILY hydrocortisone acetate 10%(80mg) 1 appful [place] BEDTIME hydroxyzine HCl 10 mg PO BID ibuprofen (Advil Migraine) 200 mg PO Q6H PRN lisdexamfetamine (Vyvanse) 50 mg PO DAILY montelukast (Singulair) 10 mg PO BEDTIME norethindrone (contraceptive) 0.35 mg PO DAILY psyllium husk (Daily Fiber) 0.4 grams PO BEDTIME Ventolin HFA 90 mcg/actuation (albuterol sulfate) 2 puffs inhalation Q4-6H PRN 30 days NS Tobacco use date assessed: 09/27/23 Dental Screening Dental Screen Date: 09/27/23 Did you have a dental visit in the last 12 months?: Yes Did you have a dental problem in the last 6 months where you did not have access to dental care?: No Was dental information given to patient?: 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 She has history of seizure disorder currently not taking any medication right now, last seizure episode in the distant past. She has multiple environmental, mild persistent asthma, and multiple drug allergies, would like a referral to see an cadmium liquor maker for further evaluation. She has ADHD and depression currently being followed by Josefina Roblero and is on Vyvanse, Guanfacine, escitalopram, and hydroxyzine as needed. She has been feeling well except for intermittent episodes of constipation [facility] Medical History (Updated 10/04/23 @ 01:33 by Lisa Kirkpatrick MD) Dermatofibrosarcoma protuberans of chest History of seizure Multiple allergies Constipation COVID-19 Surgical History History of excision of mass (02/23/22) History of excision of mass (01/26/22) History of endoscopy History of tonsillectomy and adenoidectomy Family History (Updated 09/27/23 @ 10:35 by Erin Lewis CMA) Mother Mental health disorder Father Substance use disorder Maternal Grandmother Skin cancer Maternal Grandfather Mental health disorder Social History Household Members: Family Housing: House Are you a primary childcare teacher to a significant other at home: No Do you presently have visiting nurse or other home services: No Patient Tobacco Use Status: Never used Tobacco e-Cigarette/Vaping Use: Never Used Second Hand Smoke Exposure: Yes Substance Use Type: Marijuana service: No Current occupational status: unemployed Cognitive needs: No Hearing needs: No Vision needs: Yes Questionnaire PHQ-9 Over the last 2 weeks, how often have you been bothered by any of the following problems? 1. Little interest or pleasure in doing things: several days 2. Feeling down, depressed, or hopeless: several days 3. Trouble falling or staying asleep, or sleeping too much: more than half the days 4. Feeling tired or having little energy: several days 5. Poor appetite or overeating: more than half the days 6. Feeling bad about yourself - or that you are a failure or have let yourself or your family down: several days 7. Trouble concentrating on things, such as reading the newspaper or watching television: several days 8. Moving or speaking so slowly that other people could have noticed. Or the opposite - being so fidgety or restless that you have been moving around a lot more than usual: several days 9. Thoughts that you would be better off or of hurting yourself in some way: not at all Total score: 10 Depression Screening Interpretation: Positive Depression Screening Follow-up: Existing condition, In treatment and Community Mental Health Worker F/U (Seeparul Roblero) Depression Screening Done: Yes 24362 - PHQ-9 Billing: Yes Source: Developed by Drs. Titi Palumbo, Tiffanie Gresham, Gary Monterroso and colleagues, with an educational jalen from [employer]. Thrive Questionnaire Date Thrive assessed: 09/27/23 I am a: Patient What is your living situation today?: I have a steady place to live Within the past 12 months, did the food you bought not last and you didn't have the money to get more?: Never true Within the past 12 months, did you worry whether your food would run out before you got money to buy more?: Never true Do you have trouble paying for medicines?: No Do you have trouble getting transportation to medical appointments?: No Do you have trouble paying your heating and electricity bill?: No Do you have trouble taking care of your child, family member or friend?: No Do you have trouble with day-to-day activities such as bathing, preparing meals, shopping, managing finances, etc.?: No Are you currently unemployed and looking for a job?: No Are you interested in more education?: No THRIVE Score: 0 AUDIT C Alcohol Use Questionnaire (AUDIT-C) 1. How often do you have a drink containing alcohol?: Never Total Score: 0 MARITZA-7 AMB Questionnaire MARITZA-7 Date MARITZA - 7 assessed: 09/27/23 Feeling nervous, anxious, or on edge: 2 = More than half the days Not being able to stop or control worryin = Nearly every day Worrying too much about different things: 3 = Nearly every day Trouble relaxin = More than half the days Being so restless that it is hard to sit still: 1 = Several days Becoming easily annoyed or irritable: 2 = More than half the days Feeling afraid as if something awful might happen: 0 = Not at all Total MARITZA-7 score (0-4 normal; 5-9 mild; 10-14 moderate; 15-21 severe): 13 Source: Developed by Drs. Titi Palumbo, Tiffanie Gresham, Gary Monterroso and colleagues, with an educational jalen from [employer]. MARITZA-7 Assessment Billing MARITZA-7 Assessment Tool: MARITZA-7 Assessment 89446 Review of Systems Const Denies chills, Denies fever(s), Denies headache(s) and Denies poor appetite Eyes Denies change in vision ENT Denies dizziness and Denies headache(s) Card Denies chest pain, Denies rapid heart rate, Denies palpitations and Denies slow heart rate Resp Denies chest congestion, Reports cough, Denies pain on inspiration and Reports wheezing (Occasional) GI Denies abdominal pain, Denies bloating, Denies change in stool character, Denies constipation, Denies diarrhea, Denies nausea, Denies vomiting and Denies hematemesis Reports no additional complaints Musc Denies back pain, Denies arthralgias, Denies joint swelling and Denies numbness Skin/Breast Denies breast pain, Reports breast mass, Denies change in breast shape, Denies change in pigmentation, Denies erythema and Denies rash Neuro Denies dizziness, Denies headache(s) and Denies numbness Psych Denies anxiety and Denies depression Endo Denies palpitations Rob/Lymph Denies easy bleeding, Denies easy bruising and Denies lymphadenopathy Aller/Immun Reports wheezing (Occasional) Physical exam (Primary Care) Vital Signs: Last Vital Signs Pulse 98 09/27/23 10:23 BP 100/66 09/27/23 10:23 Pulse Ox 99 09/27/23 10:23 Oxygen Delivery Method Room Air 09/27/23 10:23 BMI result Body Mass Index 38.3 Tobacco/Smoking Status: Tobacco use Status Tobacco use date assessed 09/27/23 09/27/23 10:37 Patient Tobacco Use Status Never used Tobacco 09/27/23 10:26 e-Cigarette/Vaping Use Never Used 09/27/23 10:37 PHQ-9: PHQ-9 Score PHQ-9: Total score 10 09/27/23 11:35 Depression Screening Interpretation: Positive Depression Screening Follow-up: Existing condition, In treatment and Community Mental Health Worker F/U (Kaley Roblero) Thrive Assessment: Date of Thrive Assessment Date Thrive assessed 09/27/23 09/27/23 11:04 Const General: comfortable, no acute distress and alert Nutritional Appearance: obese Orientation/consciousness: patient oriented x3 HENMT Ears: external ears normal, TM's normal bilaterally and EAC's normal General nose exam: Normal external nose present and No nasal discharge present Mouth: Normal oral and palatal mucosa present, oropharynx normal and moist mucous membranes Eyes General: appearance normal, both eyes and all related structures Conjunctivae: conjunctivae normal Sclerae: sclerae normal Pupils: Equal, round and reactive pupils present EOM: EOMs intact bilaterally Neck Neck: Yes full ROM, Yes no lymphadenopathy and Yes supple Chest Chest palpation & inspection: other (Healed Scar on chest wall) Breast/axilla palpation: normal palpation of the breasts Resp Effort & Inspection: normal respiratory effort and able to speak in complete sentences Auscultation: clear to auscultation bilaterally Cardio Rate: regular rate Rhythm: regular rhythm Heart sounds: S1 normal heart sound present and S2 normal heart sound present GI Palpation (GI): Soft to palpation, nontender and no masses Auscultation: normal bowel sounds Rectal Exam - Female: visual inspection normal, normal sphincter tone and No External hemorrhoid(s) present Back/Spine/Pelvis Back: No back tenderness Skin General skin exam: no rashes or lesions noted Neuro General: patient oriented x3, gait normal, tone normal, moves all extremities, Normal light touch and pain sensation and no focal motor deficits Cranial nerves: Yes CN's II-XII intact bilaterally and Yes Equal, round and reactive pupils present Cognition (Neuro): normal cognition Extrem General: Yes full ROM, Yes no joint enlargement, Yes no clubbing, cyanosis or edema and Yes no calf tenderness Psych Appearance: grossly normal and well kempt Mental Status: mental status grossly normal Speech and movement: Normal speech and movement present Affect: normal affect Attitude: cooperative Thought process: Normal thought process present Thought content: Normal thought content present, suicidality and no homicidality Assessment and Plan Assessment & Plan (1) Cervical cancer screening: Code(s): Z12.4 - Encounter for screening for malignant neoplasm of cervix Plan: Referred to [facility] for her initial Pap and pelvic exam, and for control surveillance (2) Mild persistent asthma: Comment: Follows with Dr. Adrian. Takes Flovent 500/day, Singulair, and albuterol prn. Code(s): J45.30 - Mild persistent asthma, uncomplicated Plan: Referral to [facility]. Continue with montelukast Ventolin inhaler as needed for episodes of bronchospasm and wheezing, and Advair 250-50 mcg taken 1 inhalation twice a day. (3) Multiple allergies: Code(s): Z88.9 - Allergy status to unspecified drugs, medicaments and biological substances Plan: Referred to [facility] for further evaluation and management (4) Anxiety with depression: Code(s): F41.8 - Other specified anxiety disorders Plan: Currently followed by Josefina Roblero, on escitalopram 10 mg once a day and hydroxyzine as needed for acute anxiety attack (5) ADHD: Comment: sees Josefina Roblero Code(s): F90.9 - Attention-deficit hyperactivity disorder, unspecified type Qualifiers: Attention deficit-hyperactivity disorder type: predominantly inattentive Qualified Code(s): F90.0 - Attention-deficit hyperactivity disorder, predominantly inattentive type Plan: Followed by psychiatry, [place] roblero currently on Vyvanse, and Guanfacine (6) Constipation: Code(s): K59.00 - Constipation, unspecified Plan: Increase dietary fiber intake and stay well-hydrated may take [id number] Colace 100-200 mg capsules once a day (7) Rectal or anal pain: Code(s): K62.89 - Other specified diseases of anus and rectum Plan: no hemorrhoids seen or anal fissures on examination. Pain likely due to frequent episodes of constipation. Prescription sent for hydrocortisone acetate 10% cream to apply sparingly to affected area at bedtime. If symptoms persist to let us know and will refer to surgery for further evaluation. (8) History of seizure: Code(s): Z87.898 - Personal history of other specified conditions Plan: Not on any medication at present, referred to neurology for further evaluation (9) Cough, persistent: Code(s): R05.3 - Chronic cough Plan: Will check for respiratory viruses, SARs COV2/flu/rsv panel testing done today Orders: Orders SARS-CoV2/FLU/RSV 09/27/23 R05.3 - Chronic cough Lipid Panel 02/19/24 C44.599 - Other specified malignant neoplasm of skin of other part of trunk, E66.9 - Obesity, unspecified, F41.8 - Other specified anxiety disorders, F90.9 - Attention-deficit hyperactivity disorder, unspecified type, J45.30 - Mild persistent asthma, uncomplicated, Z87.898 - Personal history of other specified conditions, Z88.9 - Allergy status to unspecified drugs, medicaments and biological substances Vitamin D 25-OH Total 02/19/24 C44.599 - Other specified malignant neoplasm of skin of other part of trunk, E66.9 - Obesity, unspecified, F41.8 - Other specified anxiety disorders, F90.9 - Attention-deficit hyperactivity disorder, unspecified type, J45.30 - Mild persistent asthma, uncomplicated, Z87.898 - Personal history of other specified conditions, Z88.9 - Allergy status to unspecified drugs, medicaments and biological substances Complete Blood Count Auto Diff 02/19/24 C44.599 - Other specified malignant neoplasm of skin of other part of trunk, E66.9 - Obesity, unspecified, F41.8 - Other specified anxiety disorders, F90.9 - Attention-deficit hyperactivity disorder, unspecified type, J45.30 - Mild persistent asthma, uncomplicated, Z87.898 - Personal history of other specified conditions, Z88.9 - Allergy status to unspecified drugs, medicaments and biological substances [address]. Panel Fast 02/19/24 C44.599 - Other specified malignant neoplasm of skin of other part of trunk, E66.9 - Obesity, unspecified, F41.8 - Other specified anxiety disorders, F90.9 - Attention-deficit hyperactivity disorder, unspecified type, J45.30 - Mild persistent asthma, uncomplicated, Z87.898 - Personal history of other specified conditions, Z88.9 - Allergy status to unspecified drugs, medicaments and biological substances Referrals [employer] Referral Z12.4 - Encounter for screening for malignant neoplasm of cervix Allergy & Immunology Referral J45.30 - Mild persistent asthma, uncomplicated, Z88.9 - Allergy status to unspecified drugs, medicaments and biological substances Neurology Referral Z87.898 - Personal history of other specified conditions Medications: New hydrocortisone acetate 10%(80mg) 1 appful [place] BEDTIME 15 grams 0RF K59.00 - Constipation, unspecified, K62.89 - Other specified diseases of anus and rectum Refilled albuterol sulfate 90 mcg/actuation (ProAir HFA) 2 puffs inhalation Q4-6H PRN 18 grams 3RF shortness of breath or wheezing 30 days Coding Level of Care Code New Pt Level 4 (37465) Diagnoses Cervical cancer screening Z12.4 Mild persistent asthma J45.30 Multiple allergies Z88.9 Anxiety with depression F41.8 Attention deficit hyperactivity disorder (ADHD), predominantly inattentive type F90.0 Attention deficit-hyperactivity disorder type: predominantly inattentive Constipation K59.00 Rectal or anal pain K62.89 History of seizure Z87.898 Cough, persistent R05.3 Additional Codes MARITZA-7 Assessment Billing - MARITZA-7 Assessment Tool: MARITZA-7 Assessment 29999 ([id number])
== END 2023-09-27 12:41 | disposition home or self-care (01) ==
PROVIDERS: Visit Provider Internal Medicine
DX: J45.30 Mild persistent asthma, uncomplicated (principal); Z88.9 Allergy status to unspecified drugs, medicaments and biological substances; F41.8 Other specified anxiety disorders; F90.0 Attention-deficit hyperactivity disorder, predominantly inattentive type; K59.00 Constipation, unspecified; K62.89 Other specified diseases of anus and rectum; Z87.898 Personal history of other specified conditions; R05.3 Chronic cough
CPT/HCPCS: 99204

== ENCOUNTER 2023-09-27 11:30 | Outpatient (REF) | payer OTHER, SELFPAY ==
[2023-09-27 14:26] LABS: Influenza A PCR NEGATIVE (Negative); Influenza B PCR NEGATIVE (Negative); Resp Syncy Virus RNA Qual PCR NEGATIVE (Negative); SARS COV2 PCR INHOUSE NEGATIVE (Negative)
== END 2023-09-27 11:31 | disposition home or self-care (01) ==
LOC: HO.LAB 11:30
PROVIDERS: Visit Provider Internal Medicine
DX: Z11.52 Encounter for screening for COVID-19 (principal); Z20.822 Contact with and (suspected) exposure to COVID-19; R05.3 Chronic cough
CPT/HCPCS: 0241U

== ENCOUNTER 2023-11-10 13:30 | Outpatient (REF) | payer OTHER, SELFPAY ==
--- NOTE | ~2023-11-10 | MR_ITS ---
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 Pre-contrast multiplanar multisequence MR imaging of the chest was performed without IV contrast enhancement. Post-contrast coronal, axial and sagittal T1 weighted fat suppressed images of the chest were obtained after IV injection of 10 mL Gadavist. FINDINGS: LUNGS: The visualized lung parenchyma is clear. PLEURA: No pleural effusion or pneumothorax is seen. PERICARDIUM: No pericardial effusion is seen. MEDIASTINUM AND PRADEEP: No abnormally enlarged mediastinal or hilar lymph nodes are seen. THORACIC AORTA: The thoracic aorta is normal in size and smoothly patent. PULMONARY ARTERIES: The main pulmonary arteries show normal enhancement. CHEST WALL AND LOWER NECK: A persistent sagittally oriented T2 hyperintense, T1 hypointense enhancing linear density is seen at medial border of left breast extending from the subdermal tissues down to the external border of left pectoralis major muscle sternal head. No recurrent focal lesion with abnormal signal or enhancement could be seen. The subcutaneous and muscular chest wall are intact with no focal lesion. No abnormal mass lesion could be seen in the visualized lower neck. BONES: No fracture or dislocation. No focal bone lesion diagnostic of metastatic disease could be seen in the thorax. VISUALIZED UPPER ABDOMEN: Bilateral adrenal glands are not enlarged. MR/MR chest wo/w con IMPRESSION: 1. Unchanged sagittally oriented linear fibrotic scar is seen at medial border of left breast extending from the subdermal tissues down to the external border of left pectoralis major muscle sternal head. No recurrent focal lesion with abnormal signal or enhancement could be seen. 2. No evidence of metastatic disease in the thorax.
[2023-11-10] MEDS: gadobutroL 10 ML VIAL IVPUSH (15:13)
== END 2023-11-10 13:31 | disposition home or self-care (01) ==
LOC: HO.MRI 13:30
PROVIDERS: PCP Internal Medicine; Visit Provider Surgery
DX: C44.599 Other specified malignant neoplasm of skin of other part of trunk (principal)
CPT/HCPCS: 71552; A9585

== ENCOUNTER 2023-12-06 13:20 | Outpatient (AMB) | payer OTHER, SELFPAY ==
[2023-12-06 14:14] VITALS: BP 100/60; BMI 38.6
--- NOTE | 2023-12-06 14:14 | A.OFFVIS_ITS ---
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 Required: No Information Interpreted: clinical only Shear Operator: Shear Operator Present Allergies amoxicillin Allergy (Intermediate, Verified 12/06/23 14:15) Hives azithromycin [Zithromax] Allergy (Intermediate, Verified 12/06/23 14:15) Itching Cephalosporins [CEPHALOSPORINS] Allergy (Intermediate, Verified 12/06/23 14:15) HIVES erythromycin base [ERYTHROMYCIN BASE] Allergy (Intermediate, Verified 12/06/23 14:15) HIVES levofloxacin [From LEVAQUIN] Allergy (Intermediate, Verified 12/06/23 14:15) HIVES Penicillins [PENICILLINS] Allergy (Intermediate, Verified 12/06/23 14:15) HIVES Antibiotic Allergy (Intermediate, Uncoded 12/06/23 14:15) Itching Cefzil Allergy (Intermediate, Uncoded 12/06/23 14:15) Itching Medication List - Last Reconciled 12/06/23 by Carol Stephens CNM albuterol sulfate 2.5 mg (3 mL) inhalation Q4-6H PRN diphenhydramine HCl (Sleep Aid (diphenhydramine)) 25 mg PO BEDTIME PRN escitalopram oxalate 10 mg PO DAILY fluticasone propion-salmeterol 250-50 mcg/dose (Advair Diskus) 1 ea inhalation BID guanfacine ER 2 mg PO DAILY hydroxyzine HCl 10 mg PO BID ibuprofen (Advil Migraine) 200 mg PO Q6H PRN lisdexamfetamine (Vyvanse) 50 mg PO DAILY montelukast (Singulair) 10 mg PO BEDTIME norethindrone (contraceptive) 0.35 mg PO DAILY 28 days psyllium husk (Daily Fiber) 0.4 grams PO BEDTIME Ventolin HFA 90 mcg/actuation (albuterol sulfate) 2 puffs inhalation Q4-6H PRN 30 days NS Is last menstrual period known: Yes Last menstrual period: 12/04/23 Do you need a note to return to daycare/school/sports/work: No HPI NEw patient Annual 2 HPI0 Details Patient is here with her mother 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 She is sexually active she has been on control pills she has a teenager she says they have changed over time in she thinks she would like go back to the previous ones were they scheduled her. 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 She is also seen at [facility] and managed there as well. She says she is 2 years clear so far with MRIs of her chest wall and there is a high recurrence rate with this cancer in 1 marker of successful treatment is 3 years according to the patient. 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 She voiced that she would be interested in going back on the pills before that had her have regular periods but she had gone on the pills early because she had a history of irregular periods she says that other people have told her that she should lose weight but she can so long as it does not really affect her health that has not so big of an issue. During this visit I also reviewed that because of the many nose with her cancer if 1 of her previous providers so fit to change her someone combination estrogen progestin pill to a progestin only control pill I would NOT change it back. I reviewed with her reasons for this I also reviewed that if she had had irregular periods in the past then that would be her baseline but weight is 1 of the most important issues in terms of regulating are cycles. Safer sex was also covered in great detail today. [facility] Medical History (Updated 12/06/23 @ 17:05 by Carol Stephens CNM) Dermatofibrosarcoma protuberans of chest History of seizure Multiple allergies Constipation COVID-19 Surgical History History of excision of mass (02/23/22) History of excision of mass (01/26/22) History of endoscopy History of tonsillectomy and adenoidectomy Family History Mother Mental health disorder Father Substance use disorder Maternal Grandmother Skin cancer Maternal Grandfather Mental health disorder Social History Household Members: Family Housing: House Are you a primary health care manager to a significant other at home: No Do you presently have visiting nurse or other home services: No Patient Tobacco Use Status: Never used Tobacco e-Cigarette/Vaping Use: Never Used Second Hand Smoke Exposure: Yes Substance Use Type: Marijuana service: No Current occupational status: unemployed Cognitive needs: No Hearing needs: No Vision needs: Yes Female Reproductive History Menstrual Age of Menarche: 14 Duration of menses: 3-5 days Date of last menstrual period: 12/04/23 control method: pills History of abnormal pap smear: No (no previous pap) Physical Exam Vital Signs: Last Vital Signs BP 100/60 12/06/23 14:14 BMI result Body Mass Index 38.6 Const General: healthy appearing, comfortable, no acute distress, well developed and alert Nutritional Appearance: average body habitus and obese Orientation/consciousness: patient oriented x3 Limitations: no limitations HEENT Head: Yes normocephalic Neck Neck: Yes normal visual inspection Chest Other: Patient has a very large scar across her upper chest from removal of her cancer. Chest palpation & inspection: abnormal inspection of the chest Breast/axilla inspection: normal inspection of the breasts and normal inspection of the axillae Breast/axilla palpation: normal palpation of the breasts and normal palpation of the axillae Chest/axillae images: 2 1. Scar from her surgery Resp Effort & Inspection: normal respiratory effort GI Inspection: Yes normal to inspection, No Abdominal wall edema and No distended Palpation (GI): Soft to palpation and nontender Other: Normal external exam vagina pink and moist cervix nulliparous pink smooth and healthy uterus midposition mobile nontender adnexa nontender fairly good tone with Kegel. General: Yes bladder normal to palpation External Female Exam: normal external appearance and normal appearance of the urethra Speculum Exam - Vagina: normal appearance of the vagina, normal palpation and normal vaginal discharge Speculum Exam - Cervix: normal appearance of the cervix, normal palpation and nontender Bimanual exam- vagina & uterus: normal bimanual exam, normal palpation, uterine size normal, bladder normal to palpation, consistency normal, normal palpation, uterine mobility normal, uterine shape normal, No Cervical tenderness present, non-tender and no cervical motion tenderness Bimanual Exam- Adnexa, other: normal adnexae, no masses, normal and No adnexal tenderness Neuro General: patient oriented x3 Assessment & Plan Assessment & Plan (1) Obese: Code(s): E66.9 - Obesity, unspecified (2) Dermatofibrosarcoma protuberans of chest: Comment: removed 02/2022, sees Dr Garcia Code(s): C44.599 - Other specified malignant neoplasm of skin of other part of trunk (3) control counseling: Comment: Patient states she was changed from the pills that regulated her menses, to the ones she is on now (POPs), a couple of years ago, but she did not know why but that corresponded to around the time of her diagnosis of cancer. Reviewed with her that I will not change in back to combination OCPs. Code(s): Z30.09 - Encounter for other general counseling and advice on contraception (4) History of irregular menstrual cycles: Comment: Reviewed the role of excess body weight on regulation of cycles. Patient on progestin only OCPs will maintain on these at this time. Code(s): Z87.42 - Personal history of other diseases of the female genital tract (5) Well woman exam with routine gynecological exam: Code(s): Z01.419 - Encounter for gynecological examination (general) (routine) without abnormal findings (6) Cervical cancer screening: Comment: 1st Pap done 12/06/2023. 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 She is sexually active she has been on control pills she has a teenager she says they have changed over time in she thinks she would like go back to the previous ones were they scheduled her. 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 She is also seen at [facility] and managed there as well. She says she is 2 years clear so far with MRIs of her chest wall and there is a high recurrence rate with this cancer in 1 marker of successful treatment is 3 years according to the patient. 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 She voiced that she would be interested in going back on the pills before that had her have regular periods but she had gone on the pills early because she had a history of irregular periods she says that other people have told her that she should lose weight but she can so long as it does not really affect her health that has not so big of an issue. During this visit I also reviewed that because of the many nose with her cancer if 1 of her previous providers so fit to change her someone combination estrogen progestin pill to a progestin only control pill I would NOT change it back. I reviewed with her reasons for this I also reviewed that if she had had irregular periods in the past then that would be her baseline but weight is 1 of the most important issues in terms of regulating are cycles. Safer sex was also covered in great detail today. Orders: Orders 2 CT NG by PCR Today Z01.419 - Encounter for gynecological examination (general) (routine) without abnormal findings Bacterial Vaginosis Panel Today Z20.2 - Contact with and (suspected) exposure to infections with a predominantly sexual mode of transmission Pap Smear Today Z01.419 - Encounter for gynecological examination (general) (routine) without abnormal findings Medications: Changed 2 From norethindrone (contraceptive) 0.35 mg PO DAILY 28 days 28 tabs 0RF To norethindrone (contraceptive) 0.35 mg PO DAILY 84 days 84 tabs 4RF Coding Level of Care Code New Pt Prev Care 18-39yr([id number] Diagnoses Obese E66.9 Dermatofibrosarcoma protuberans of chest C44.599 control counseling Z30.09 History of irregular menstrual cycles Z87.42 Well woman exam with routine gynecological exam Z01.419 Cervical cancer screening Z12.4
== END 2023-12-06 15:15 | disposition home or self-care (01) ==
PROVIDERS: PCP Internal Medicine; Visit Provider Advanced Practice Midwife
DX: Z01.419 Encounter for gynecological examination (general) (routine) without abnormal findings (principal); E66.9 Obesity, unspecified; C44.599 Other specified malignant neoplasm of skin of other part of trunk; Z30.09 Encounter for other general counseling and advice on contraception; Z87.42 Personal history of other diseases of the female genital tract; Z12.4 Encounter for screening for malignant neoplasm of cervix
CPT/HCPCS: 99385

== ENCOUNTER 2023-12-06 13:20 | Outpatient (REF) | payer OTHER, SELFPAY ==
[2023-12-07 14:56] LABS: CT PCR NOT DETECTED (Not Detect.); NG PCR NOT DETECTED (Not Detect.)
[2023-12-08 12:16] LABS: BV Int Neg Control Negative (Negative); BV Int Pos Control Positive (Positive)
== END 2023-12-06 13:21 | disposition home or self-care (01) ==
LOC: HO.LAB 13:20
PROVIDERS: PCP Internal Medicine; Visit Provider Advanced Practice Midwife
DX: Z01.419 Encounter for gynecological examination (general) (routine) without abnormal findings (principal); Z20.2 Contact with and (suspected) exposure to infections with a predominantly sexual mode of transmission; Z87.42 Personal history of other diseases of the female genital tract
CPT/HCPCS: 0353U; 87480; 87510; 87660; 88142; 99385

== ENCOUNTER 2024-01-11 14:31 | Outpatient (AMB) | payer OTHER, SELFPAY ==
--- NOTE | 2024-01-11 14:39 | A.OFFVIS_ITS ---
Vital Signs 01/11/24 14:49 Height 5 ft 3 in Weight 210 lb 8 oz BMI 37.3 BP 102/70 Blood Pressure Location Lt brachial Position Sitting Pulse 104 H Pulse Source Pulse Oximeter Pulse Oximetry (%) 97 Oxygen Delivery Method Room Air Intake Visit Reasons: INP-Personal hx of other spec cond-CONF Intake Note: Patient presents for seizures. Found out that high dose of Sertraline was the cause of her seizures. Allergies amoxicillin Allergy (Intermediate, Verified 01/11/24 14:46) Hives azithromycin [Zithromax] Allergy (Intermediate, Verified 01/11/24 14:46) Itching Cephalosporins [CEPHALOSPORINS] Allergy (Intermediate, Verified 01/11/24 14:46) HIVES erythromycin base [ERYTHROMYCIN BASE] Allergy (Intermediate, Verified 01/11/24 14:46) HIVES levofloxacin [From LEVAQUIN] Allergy (Intermediate, Verified 01/11/24 14:46) HIVES Penicillins [PENICILLINS] Allergy (Intermediate, Verified 01/11/24 14:46) HIVES Antibiotic Allergy (Intermediate, Uncoded 12/06/23 14:15) Itching Cefzil Allergy (Intermediate, Uncoded 12/06/23 14:15) Itching Medication List - Last Reconciled 01/11/24 by Meka Blackman, ALEYDA albuterol sulfate 2.5 mg (3 mL) inhalation Q4-6H PRN diphenhydramine HCl (Sleep Aid (diphenhydramine)) 25 mg PO BEDTIME PRN escitalopram oxalate 10 mg PO DAILY guanfacine ER 2 mg PO DAILY hydroxyzine HCl 10 mg PO BID ibuprofen (Advil Migraine) 200 mg PO Q6H PRN lisdexamfetamine (Vyvanse) 50 mg PO DAILY montelukast (Singulair) 10 mg PO BEDTIME norethindrone (contraceptive) 0.35 mg PO DAILY 84 days psyllium husk (Daily Fiber) 0.4 grams PO BEDTIME Ventolin HFA 90 mcg/actuation (albuterol sulfate) 2 puffs inhalation Q4-6H PRN 30 days NS HPI Comments Details: Right-handed 23-yr-old female presents for neurological evaluation of: convulsions. 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 Anxiety and depression, which was exacerbated following the cancer dx/tx. ADHD. Asthma and migraine. Pt reports episodes of convulsions, which started about a year ago after her Sertraline dose was increased from 100mg to 200mg to help manage her worsening anxiety. During the convulsive episodes, she develops facial redness and warmth, axilla sweating, f/b dizziness, she either lays down or falls down, she can hear what is going on around her, but cannot respond. Her head falls back and eyes roll back, her whole body shakes (most states pt is not stiff), and she starts to breathe funny. She has bitten her tongue during 2-3 of these episodes. Denies intraictal incontinence. After the episode, has felt lost. Some episodes are stronger than others. The episodes lasts 3-10 minutes. The longest episode was 12 minutes. Initially, she had multiple episodes within 4 hours. She did not seek medical evaluation for this. She is not able to suppress the convulsive, but feels she can now relax herself somewhat during the episode. Pt notes stress may also be a trigger for these convulsions. She may or may not have a migraine headache during these episodes. She was having > 6 episodes a month, but since coming off Sertraline, almost 1 yr ago, she now has 1-2 episodes of month. 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 Pt has not had head imaging or EEG. She is currently on escitalopram 10 mg qd, and her psychiatrist just advised her to start Abilify to help her manage her anger. She is f/b [facility]. Pt had a normal gestational and delivery- wt 6 lbs 5oz. She had normal early development, although always very active. [facility] Medical History (Updated 01/11/24 @ 16:02 by ALEYDA Kingsley) Dermatofibrosarcoma protuberans of chest History of seizure Multiple allergies Constipation COVID-19 Surgical History History of excision of mass (02/23/22) History of excision of mass (01/26/22) History of endoscopy History of tonsillectomy and adenoidectomy Family History Mother Mental health disorder Father Substance use disorder Maternal Grandmother Skin cancer Maternal Grandfather Mental health disorder Social History Household Members: Family Housing: House Are you a primary careers adviser to a significant other at home: No Do you presently have visiting nurse or other home services: No Patient Tobacco Use Status: Never used Tobacco e-Cigarette/Vaping Use: Never Used Second Hand Smoke Exposure: Yes Substance Use Type: Marijuana service: No Current occupational status: unemployed Cognitive needs: No Hearing needs: No Vision needs: Yes Female Reproductive History Menstrual Age of Menarche: 14 Review of Systems Const All systems reviewed & are unremarkable except as noted in HPI and below Physical Exam Vital Signs: Last Vital Signs Pulse 104 H 01/11/24 14:49 BP 102/70 01/11/24 14:49 Pulse Ox 97 01/11/24 14:49 Oxygen Delivery Method Room Air 01/11/24 14:49 BMI result Body Mass Index 37.3 Const General: cooperative and no acute distress Orientation/consciousness: patient oriented x3 HEENT Head: Yes normocephalic Chest Other: Anterior chest large healed surgical scar Resp Effort & Inspection: normal respiratory effort and able to speak in complete sentences Neuro General: patient oriented x3, CN's II-XI intact bilaterally and deep tendon reflexes 2+ bilaterally Gait exam (Neuro): Normal gait present Motor exam (neuro): 5/5 motor strength present throughout Psych Appearance: grossly normal Mental Status: mental status grossly normal Speech and movement: Normal speech and movement present Affect: Animated affect present Attitude: cooperative Assessment & Plan Assessment & Plan (1) Dermatofibrosarcoma protuberans of chest: Comment: removed 02/2022, sees Dr Garcia Code(s): C44.599 - Other specified malignant neoplasm of skin of other part of trunk Category: Medical (2) Convulsions: Code(s): R56.9 - Unspecified convulsions Category: Medical (3) Migraine without aura: Code(s): G43.009 - Migraine without aura, not intractable, without status migrainosus Category: Medical (4) Snoring: Code(s): R06.83 - Snoring Category: Medical (5) Sleep difficulties: Code(s): G47.9 - Sleep disorder, unspecified Category: Medical (6) Fatigue: Code(s): R53.83 - Other fatigue Category: Medical Plan Discussed that pt's episodes of convulsions a ppear to be more consistent w/ non-epileptic convulsions, however further work-up is needed as seizure and non- epileptic convulsions can co-occur. Discussed the importance of clarifying her diagnosis, to optimize Tx, as tx options difference distinctly between these dx's. Pt advsied to continue to f/u w/ her psychiatric care team. Pt verbalizes understanding. Pt is advised to undergo: Brain MRI w/wo- to assess for potential foci of epileptic activity, in setting of migraine and h/o dermatofibromosarcoma protuberans. EEG- baseline HST to assess for sleep apnea. For migraine: Will assess further in f/u. Pt seen in c/w Dr Qian Samaniego. Orders: Orders RT home sleep study 01/11/24 G47.9 - Sleep disorder, unspecified, R06.83 - Snoring, R53.83 - Other fatigue MR head/brain wo/w con 01/11/24 C44.599 - Other specified malignant neoplasm of skin of other part of trunk, G43.009 - Migraine without aura, not intractable, without status migrainosus, R56.9 - Unspecified convulsions EEG electroencephalogram 01/11/24 G43.009 - Migraine without aura, not intractable, without status migrainosus, R56.9 - Unspecified convulsions Medications: New aripiprazole (Abilify) 1mg per psychiatry orally daily; Coding Level of Care Code New Pt Level 4 (50560) Diagnoses Dermatofibrosarcoma protuberans of chest C44.599 Convulsions R56.9 Migraine without aura G43.009 Snoring R06.83 Sleep difficulties G47.9 Fatigue R53.83
[2024-01-11 14:49] VITALS: BP 102/70; PULSE 104; O2SAT 97; BMI 37.3
== END 2024-01-11 16:10 | disposition home or self-care (01) ==
PROVIDERS: PCP Internal Medicine; Visit Provider Nurse Practitioner Family
DX: C44.599 Other specified malignant neoplasm of skin of other part of trunk (principal); R56.9 Unspecified convulsions; G43.009 Migraine without aura, not intractable, without status migrainosus; R06.83 Snoring; G47.9 Sleep disorder, unspecified; R53.83 Other fatigue
CPT/HCPCS: 99204

== ENCOUNTER → 2024-01-11 14:31 | Outpatient (BNVA) | payer OTHER, SELFPAY | PROVIDERS: PCP Internal Medicine; Visit Provider Nurse Practitioner Family | DX: C44.599 Other specified malignant neoplasm of skin of other part of trunk (principal); R56.9 Unspecified convulsions; R06.83 Snoring; R53.83 Other fatigue; G43.009 Migraine without aura, not intractable, without status migrainosus; G47.9 Sleep disorder, unspecified | CPT/HCPCS: 99202 ==

== ENCOUNTER 2024-02-13 12:49 | Outpatient (REF) | payer OTHER, SELFPAY ==
--- NOTE | 2024-02-13 12:54 | EEG_ITS ---
FINDINGS: Waking background activity consists of well-defined moderate voltage 9 hertz posterior alpha frequency that is seen symmetrically and attenuates well with eye opening while low voltage fast frequency is predominant anteriorly. Photic stimulation is without activation. Hyperventilation was omitted. Several instances of paroxysmal bifrontal 6 hertz with moderate voltage seen lasting 2 to 3 seconds without any clinical symptoms. No sleep stages are identified. IMPRESSION: This EEG is considered mildly abnormal due to several bouts of bifrontal rhythmic moderate voltage theta that may suggest paroxysmal disorder. Clinical correlation is suggested. MD NORM Clay/PATSY / [id number]
== END 2024-02-13 12:50 | disposition home or self-care (01) ==
LOC: HO.NEURO 12:49
PROVIDERS: PCP Internal Medicine; Visit Provider Nurse Practitioner Family
DX: R56.9 Unspecified convulsions (principal); G43.009 Migraine without aura, not intractable, without status migrainosus; R06.83 Snoring; G47.9 Sleep disorder, unspecified; R53.83 Other fatigue
CPT/HCPCS: 95806; 95816

== ENCOUNTER → 2024-02-13 14:42 | Outpatient (BNV) | payer OTHER, SELFPAY | PROVIDERS: PCP Internal Medicine; Visit Provider Psychiatry & Neurology Neurology | DX: R06.83 Snoring (principal) | CPT/HCPCS: 95806 ==

== ENCOUNTER 2024-03-06 15:43 | Outpatient (REF) | payer OTHER, SELFPAY ==
--- NOTE | ~2024-03-06 | MR_ITS ---
EXAMINATION: MR BRAIN WITH AND WITHOUT CONTRAST CLINICAL INFORMATION: Migraine without aura COMPARISON: None. TECHNIQUE: MRI of the brain was obtained using routine sequences before and following administration of intravenous contrast. A total of 9 mL of Gadavist was administered intravenously. FINDINGS: Motion degraded examination. No acute infarct. The GRE sequence is without susceptibility artifact to suggest acute or chronic blood products. No extra-axial fluid collection. The ventricles and sulci are normal in size and configuration without significant volume loss or hydrocephalus. No parenchymal signal abnormality. No abnormal intraparenchymal or leptomeningeal enhancement. No significant mass effect or herniation pattern. The intracranial dural venous sinus and arterial flow voids are preserved. Cerebellar tonsils are minimally low-lying, terminating just below the foramen magnum, a normal anatomic variant. Extent of motion artifact limits diagnostic assessment of the bilateral hippocampi. The orbits are grossly unremarkable. Mild patchy paranasal sinus mucosal thickening. No mastoid effusion. Normal marrow signal. Prominent retropharyngeal lymph nodes are presumably reactive given patient age. MR/MR head/brain wo/w con IMPRESSION: Motion degraded examination without acute intracranial abnormality. Nondiagnostic assessment of the hippocampi. No pathologic intracranial enhancement.
[2024-03-06] MEDS: gadobutroL 10 ML VIAL IVPUSH (17:09)
== END 2024-03-06 15:44 | disposition home or self-care (01) ==
LOC: HO.MRI 15:43
PROVIDERS: PCP Internal Medicine; Visit Provider Nurse Practitioner Family
DX: R56.9 Unspecified convulsions (principal); G43.009 Migraine without aura, not intractable, without status migrainosus; C44.599 Other specified malignant neoplasm of skin of other part of trunk
CPT/HCPCS: 70553; A9585

== ENCOUNTER 2024-04-09 13:16 | Outpatient (REF) | payer OTHER, SELFPAY ==
[2024-04-10 03:33] LABS: CT PCR NOT DETECTED (Not Detect.); NG PCR NOT DETECTED (Not Detect.)
[2024-04-10 10:32] LABS: Bacterial Vaginosis PCR NEGATIVE (Negative); Candida Group PCR NOT DETECTED (Not Detect); Candida glab krusei PCR NOT DETECTED (Not Detect); Trichomonas vaginalis PCR NOT DETECTED (Not Detect)
== END 2024-04-09 13:17 | disposition home or self-care (01) ==
LOC: HO.LAB 13:16
PROVIDERS: PCP Internal Medicine; Visit Provider Advanced Practice Midwife
DX: Z01.419 Encounter for gynecological examination (general) (routine) without abnormal findings (principal); Z20.2 Contact with and (suspected) exposure to infections with a predominantly sexual mode of transmission; N89.8 Other specified noninflammatory disorders of vagina
CPT/HCPCS: 0352U; 36415; 87491; 87591; 87625; 88175; 99212

== ENCOUNTER 2024-04-09 13:16 | Outpatient (AMB) | payer OTHER, SELFPAY ==
[2024-04-09 13:40] VITALS: BP 112/62; BMI 36.3
--- NOTE | 2024-04-09 13:40 | MHC.OFFVIS ---
Vital Signs 04/09/24 13:40 Height 5 ft 3 in Weight 205 lb BMI 36.3 BP 112/62 Intake Visit Reasons: Repeat pap [facility] Compliance Coordinator Required: No Information Interpreted: clinical only Safekeeping Clerk: Safekeeping Clerk Present Allergies amoxicillin Allergy (Intermediate, Verified 04/09/24 13:42) Hives azithromycin [Zithromax] Allergy (Intermediate, Verified 04/09/24 13:42) Itching Cephalosporins [CEPHALOSPORINS] Allergy (Intermediate, Verified 04/09/24 13:42) HIVES erythromycin base [ERYTHROMYCIN BASE] Allergy (Intermediate, Verified 04/09/24 13:42) HIVES levofloxacin [From LEVAQUIN] Allergy (Intermediate, Verified 04/09/24 13:42) HIVES Penicillins [PENICILLINS] Allergy (Intermediate, Verified 04/09/24 13:42) HIVES Antibiotic Allergy (Intermediate, Uncoded 04/09/24 13:42) Itching Cefzil Allergy (Intermediate, Uncoded 04/09/24 13:42) Itching Medication List - Last Reconciled 04/09/24 by Carol Stephens CNM albuterol sulfate 2.5 mg (3 mL) inhalation Q4-6H PRN aripiprazole (Abilify) 5 mg PO BEDTIME aripiprazole 5 mg PO BEDTIME diphenhydramine HCl (Sleep Aid (diphenhydramine)) 25 mg PO BEDTIME PRN escitalopram oxalate 10 mg PO DAILY gabapentin 1 cap qhs x's 3 days, then 1 cap bid x's 3 days, then 1 cap tid orally .; 30 days guanfacine ER 2 mg PO DAILY hydroxyzine HCl 10 mg PO BID ibuprofen (Advil Migraine) 200 mg PO Q6H PRN lisdexamfetamine (Vyvanse) 50 mg PO DAILY montelukast (Singulair) 10 mg PO BEDTIME norethindrone (contraceptive) 0.35 mg PO DAILY 84 days Ventolin HFA 90 mcg/actuation (albuterol sulfate) 2 puffs inhalation Q4-6H PRN 30 days NS Is last menstrual period known: Yes Last menstrual period: 04/04/24 Do you need a note to return to daycare/school/sports/work: No HPI HPI Repeat pap: Details: Patient is here with her who is her grandmother. The visit was scheduled for repeat Pap. She is sexually active with her boyfriend. She is on progestin only control pills she was switched to these around the time of the diagnosis of her cancer. She is aware about the risks of recurrence her grandmother shared that there is a strong family history of breast cancer in the family which worries her. Discussed usual timing of screens and recommending mammograms from age 42 on but in her particular case the next visit she has with Dr. Valdez I suggested discussing risk of this with him. Her grandmother shared that this has been discussed already with him and they plan to discuss it again if necessary.. Additionally she did start having seizures recently. She had an EEG and there were some abnormalities and then she had an MRI which showed some issues with lymph glands. She says the seizures are such that they involve her rolling back her eyes. Patient was very proud that she has lost weight she is following a keto diet with her boyfriend and boyfriend's mother. She has not started adding in exercise yet [facility] Medical History Dermatofibrosarcoma protuberans of chest History of seizure Multiple allergies Constipation COVID-19 Surgical History History of excision of mass (02/23/22) History of excision of mass (01/26/22) History of endoscopy History of tonsillectomy and adenoidectomy Family History Mother Mental health disorder Father Substance use disorder Maternal Grandmother Skin cancer Maternal Grandfather Mental health disorder Social History Household Members: Family Housing: House Are you a primary healthcare network pricing consultant to a significant other at home: No Do you presently have visiting nurse or other home services: No Patient Tobacco Use Status: Never used Tobacco e-Cigarette/Vaping Use: Never Used Second Hand Smoke Exposure: Yes Substance Use Type: Marijuana service: No Current occupational status: unemployed Cognitive needs: No Hearing needs: No Vision needs: Yes Female Reproductive History Menstrual Age of Menarche: 14 Duration of menses: 3-5 days Date of last menstrual period: 04/04/24 control method: pills Total pregnancies: 0 Date of last pap smear: 12/06/23 (unsatis.) History of abnormal pap smear: No Physical Exam Vital Signs: Last Vital Signs BP 112/62 04/09/24 13:40 BMI result Body Mass Index 36.3 Const General: healthy appearing, comfortable, no acute distress, well developed and alert Nutritional Appearance: average body habitus Orientation/consciousness: patient oriented x3 Limitations: no limitations HEENT Head: Yes normocephalic Neck Neck: Yes normal visual inspection Chest Other: Horizontal scar from surgery to remove cancer. Chest palpation & inspection: normal inspection of the chest Breast/axilla inspection: normal inspection of the breasts and normal inspection of the axillae Breast/axilla palpation: normal palpation of the breasts and normal palpation of the axillae Resp Effort & Inspection: normal respiratory effort GI Inspection: Yes normal to inspection, No Abdominal wall edema and No distended Palpation (GI): Soft to palpation and nontender Other: Vagina pink and moist cervix nulliparous moist .-trail end of menses with scant brown tinge to clear mucus noted. Cervix mobile nontender uterus midposition to anteverted mobile nontender adnexa nontender good tone with Kegel. General: Yes bladder normal to palpation External Female Exam: normal external appearance and normal appearance of the urethra Speculum Exam - Vagina: normal appearance of the vagina, normal palpation and normal vaginal discharge Speculum Exam - Cervix: normal appearance of the cervix, normal palpation and nontender Bimanual exam- vagina & uterus: normal bimanual exam, normal palpation, uterine size normal, bladder normal to palpation, consistency normal, normal palpation, uterine mobility normal, uterine shape normal, No Cervical tenderness present, non-tender and no cervical motion tenderness Bimanual Exam- Adnexa, other: normal adnexae, no masses, normal and No adnexal tenderness Neuro General: patient oriented x3 Assessment & Plan Assessment & Plan (1) Cervical cancer screening: Comment: 1st Pap done 12/06/2023= unsatisfactory secondary to blood (LMP variously cited is 4 8 or 415), will need to be repeated. pap repeated 04/09/24. Code(s): Z12.4 - Encounter for screening for malignant neoplasm of cervix Category: Medical (2) Well woman exam with routine gynecological exam: Code(s): Z01.419 - Encounter for gynecological examination (general) (routine) without abnormal findings Category: Medical (3) History of irregular menstrual cycles: Comment: Reviewed the role of excess body weight on regulation of cycles. Patient on progestin only OCPs will maintain on these at this time. 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 Reviewed with her that I will not change her back to combination OCPs. Code(s): Z30.09 - Encounter for other general counseling and advice on contraception Category: Medical (6) Convulsions: Comment: Patient states they restarted recently. states her eyes roll back in her head Code(s): R56.9 - Unspecified convulsions Category: Medical Plan Her Pap smear was done as well as testing for STIs Reviewed that she does get her. At least once a month even that is not an exact same date and that I would not want to prescribe or change her back to the combination control pills with her medical issues just to be on the safe side. The patient inquired about getting HPV vaccine. It had been declined/refused by her mother when she was at young teen but now she is making her own decisions and she wants to consider. Her grandmother had shared that the patient's mother had seen a video of somebody having a terrible reaction from having had the HPV vaccine and that is why she was recommending against it. I recommend that she review this with her primary care provider who has she seen next month and see if it is in fact available at the primary care office and if it is not she may want to consider getting it at her local pharmacy. In addition about the family history breast cancer since she will be seeing Dr. Valdez soon I suggested re resuming the discussion with him. She will be following up with her other providers about her other health issues and concerns RTC for next annual but I did refill her pills so she does not run out. Medications: Refilled norethindrone (contraceptive) 0.35 mg PO DAILY 84 days 84 tabs 4RF Coding Level of Care Code Est Pt Level 3 (42371) Diagnoses Cervical cancer screening Z12.4 Well woman exam with routine gynecological exam Z01.419 History of irregular menstrual cycles Z87.42 Dermatofibrosarcoma protuberans of chest C44.599 control counseling Z30.09 Convulsions R56.9
== END 2024-04-09 15:08 | disposition home or self-care (01) ==
LOC: HO.HWSM 13:16
PROVIDERS: PCP Internal Medicine; Visit Provider Advanced Practice Midwife
DX: Z12.4 Encounter for screening for malignant neoplasm of cervix (principal); Z01.419 Encounter for gynecological examination (general) (routine) without abnormal findings; Z87.42 Personal history of other diseases of the female genital tract; C44.599 Other specified malignant neoplasm of skin of other part of trunk; Z30.09 Encounter for other general counseling and advice on contraception; R56.9 Unspecified convulsions
CPT/HCPCS: 99213

== ENCOUNTER 2024-04-30 07:35 | Outpatient (AMB) | payer OTHER, SELFPAY ==
--- NOTE | 2024-04-30 07:36 | A.OFFVIS_ITS ---
Vital Signs 04/30/24 07:37 Height 5 ft 3 in Weight 208 lb BMI 36.8 Intake Visit Reasons: 3 Month F/U Intake Note: Patient presents for 3 month follow up Allergies amoxicillin Allergy (Intermediate, Verified 04/30/24 07:43) Hives azithromycin [Zithromax] Allergy (Intermediate, Verified 04/30/24 07:43) Itching Cephalosporins [CEPHALOSPORINS] Allergy (Intermediate, Verified 04/30/24 07:43) HIVES erythromycin base [ERYTHROMYCIN BASE] Allergy (Intermediate, Verified 04/30/24 07:43) HIVES levofloxacin [From LEVAQUIN] Allergy (Intermediate, Verified 04/30/24 07:43) HIVES Penicillins [PENICILLINS] Allergy (Intermediate, Verified 04/30/24 07:43) HIVES Antibiotic Allergy (Intermediate, Uncoded 04/30/24 07:43) Itching Cefzil Allergy (Intermediate, Uncoded 04/30/24 07:43) Itching Medication List - Last Reconciled 04/30/24 by ALEYDA Kingsley albuterol sulfate 2.5 mg (3 mL) inhalation Q4-6H PRN aripiprazole (Abilify) 5 mg PO BEDTIME aripiprazole 5 mg PO BEDTIME diphenhydramine HCl (Sleep Aid (diphenhydramine)) 25 mg PO BEDTIME PRN escitalopram oxalate 10 mg PO DAILY gabapentin 1 cap qhs x's 3 days, then 1 cap bid x's 3 days, then 1 cap tid orally .; 30 days guanfacine ER 2 mg PO DAILY hydroxyzine HCl 10 mg PO BID ibuprofen (Advil Migraine) 200 mg PO Q6H PRN lisdexamfetamine (Vyvanse) 50 mg PO DAILY montelukast (Singulair) 10 mg PO BEDTIME norethindrone (contraceptive) 0.35 mg PO DAILY 84 days Ventolin HFA 90 mcg/actuation (albuterol sulfate) 2 puffs inhalation Q4-6H PRN 30 days NS HPI Comments Details: 24-yr-old female presents for f/u visit. Pt denies any significant interval medical changes. Brain MRI was unremarkable, however there was some motion degradation. EEG results were considered mildly abnormal due to several bouts of bifrontal rhythmic moderate voltage theta that may suggest paroxysmal disorder. HST did not show AHI 0.5/hr, O2 maxine 87%. Upon review of the EEG, we advised pt to start Gabapentin. Pt reports she has had 3 convulsions since starting Gabapentin 2 months ago, which is less than the 1-2 convulsions per month prior. The convulsions are not as severe, her eyes will roll back, she will feel slightly SOB- almost panting, and she will pass out briefly. She has been compliant w/ Gabapentin. When she increased dose from 300mg qd to 300mg bid, she had restlessness in her legs, however this has since subsided. She is now on Gabapentin 300mg tid. She is tolerating this better. She has not had any menstrual migraine since starting Gabapentin. She is sleeping better w/ OTC sleep gummies. Not needing to take her prescription sleep meds. 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 [facility] Medical History Dermatofibrosarcoma protuberans of chest History of seizure Multiple allergies Constipation COVID-19 Surgical History History of excision of mass (02/23/22) History of excision of mass (01/26/22) History of endoscopy History of tonsillectomy and adenoidectomy Family History Mother Mental health disorder Father Substance use disorder Maternal Grandmother Skin cancer Maternal Grandfather Mental health disorder Social History Household Members: Family Housing: House Are you a primary palliative care nurse to a significant other at home: No Do you presently have visiting nurse or other home services: No Patient Tobacco Use Status: Never used Tobacco e-Cigarette/Vaping Use: Never Used Second Hand Smoke Exposure: Yes Substance Use Type: Marijuana service: No Current occupational status: unemployed Cognitive needs: No Hearing needs: No Vision needs: Yes Female Reproductive History Menstrual Age of Menarche: 14 Physical Exam Vital Signs: BMI result Body Mass Index 36.8 Const General: cooperative and no acute distress Orientation/consciousness: patient oriented x3 Resp Effort & Inspection: normal respiratory effort and able to speak in complete sentences Neuro General: patient oriented x3, gait normal and moves all extremities Cranial nerves: Yes CN's II-XII intact bilaterally Psych Other: Easily distracted Appearance: grossly normal Mental Status: mental status grossly normal Speech and movement: Normal speech and movement present Affect: normal affect Attitude: cooperative Assessment & Plan Assessment & Plan (1) Convulsions: Code(s): R56.9 - Unspecified convulsions Category: Medical (2) Migraine without aura: Code(s): G43.009 - Migraine without aura, not intractable, without status migrainosus Category: Medical Plan Reviewed: Brain MRI was unremarkable, however there was some motion degradation. EEG results were considered mildly abnormal due to several bouts of bifrontal rhythmic moderate voltage theta that may suggest paroxysmal disorder. HST did not show AHI 0.5/hr, O2 maxine 87%. Convulsive episodes have decreased significantly since starting Gabapentin, in setting of mildly abnormal EEG. This does increase likelihood that pt's episodes are epileptic. Continue Gabapentin 300mg po TID. CBC/CMP- orders already in place from PCP. Pt advised to let us know if her menstrual migraine reoccurs. f/u in 3-6 months or sooner prn. Coding Level of Care Code Est Pt Level 4 (12855) Diagnoses Convulsions R56.9 Migraine without aura G43.009
[2024-04-30 07:37] VITALS: BMI 36.8
== END 2024-04-30 08:15 | disposition home or self-care (01) ==
PROVIDERS: PCP Internal Medicine; Visit Provider Nurse Practitioner Family
DX: R56.9 Unspecified convulsions (principal); G43.009 Migraine without aura, not intractable, without status migrainosus
CPT/HCPCS: 99214

== ENCOUNTER → 2024-04-30 07:35 | Outpatient (BNVA) | payer OTHER, SELFPAY | PROVIDERS: PCP Internal Medicine; Visit Provider Nurse Practitioner Family | DX: R56.9 Unspecified convulsions (principal); G43.009 Migraine without aura, not intractable, without status migrainosus | CPT/HCPCS: 99212 ==

== ENCOUNTER 2024-06-05 08:57 | Outpatient (AMB) | payer OTHER, SELFPAY ==
--- NOTE | 2024-06-05 09:03 | A.OFFPC_ITS ---
Vital Signs 06/05/24 09:05 Height 5 ft 3 in Weight 209 lb 8 oz BMI 37.1 BP 124/64 Blood Pressure Location Lt brachial Position Sitting Pulse 106 H Pulse Source Pulse Oximeter Pulse Oximetry (%) 98 Oxygen Delivery Method Room Air Intake Visit Reasons: PE Intake Note: Patient is here today for a physical. Pt decline flu shot today. 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: No Title Closer: Not Required per policy Accompanied by: Self / Same As Patient Allergies amoxicillin Allergy (Intermediate, Verified 06/05/24 09:17) Hives azithromycin [Zithromax] Allergy (Intermediate, Verified 06/05/24 09:17) Itching Cephalosporins [CEPHALOSPORINS] Allergy (Intermediate, Verified 06/05/24 09:17) HIVES erythromycin base [ERYTHROMYCIN BASE] Allergy (Intermediate, Verified 06/05/24 09:17) HIVES levofloxacin [From LEVAQUIN] Allergy (Intermediate, Verified 06/05/24 09:17) HIVES Penicillins [PENICILLINS] Allergy (Intermediate, Verified 06/05/24 09:17) HIVES Antibiotic Allergy (Intermediate, Uncoded 06/05/24 09:17) Itching Cefzil Allergy (Intermediate, Uncoded 06/05/24 09:17) Itching Medication List - Last Reconciled 06/05/24 by Lisa Kirkpatrick MD albuterol sulfate 2.5 mg (3 mL) inhalation Q4-6H PRN aripiprazole (Abilify) 5 mg PO BEDTIME aripiprazole 5 mg PO BEDTIME diphenhydramine HCl (Sleep Aid (diphenhydramine)) 25 mg PO BEDTIME PRN escitalopram oxalate 10 mg PO DAILY gabapentin 1 cap qhs x's 3 days, then 1 cap bid x's 3 days, then 1 cap tid orally .; 30 days guanfacine ER 2 mg PO DAILY hydroxyzine HCl 10 mg PO BID ibuprofen (Advil Migraine) 200 mg PO Q6H PRN lisdexamfetamine (Vyvanse) 50 mg PO QAM lisdexamfetamine (Vyvanse) 20 mg PO DAILY montelukast (Singulair) 10 mg PO BEDTIME norethindrone (contraceptive) 0.35 mg PO DAILY 84 days Ventolin HFA 90 mcg/actuation (albuterol sulfate) 2 puffs inhalation Q4-6H PRN 30 days NS Tobacco use date assessed: 06/05/24 Dental Screening Dental Screen Date: 09/27/23 HPI PE HPI Details 24 year old lady , here for her physical exam. She has history of seizure disorder, currently not taking any medication right now, last seizure episode in the distant past. She has multiple environmental, mild persistent asthma, and multiple drug allergies, She has ADHD and depression currently being followed by Josefina Moore and is on Vyvanse, Guanfacine, escitalopram, and hydroxyzine as needed. [facility] Medical History (Updated 06/05/24 @ 09:40 by Lisa Kirkpatrick MD) Mild intermittent asthma Dermatofibrosarcoma protuberans of chest History of seizure Multiple allergies Constipation COVID-19 Surgical History History of excision of mass (02/23/22) History of excision of mass (01/26/22) History of endoscopy History of tonsillectomy and adenoidectomy Family History Mother Mental health disorder Father Substance use disorder Maternal Grandmother Skin cancer Maternal Grandfather Mental health disorder Social History Household Members: Family Housing: House Are you a primary ocular care aide to a significant other at home: No Do you presently have visiting nurse or other home services: No Patient Tobacco Use Status: Never used Tobacco e-Cigarette/Vaping Use: Never Used Second Hand Smoke Exposure: Yes Substance Use Type: Marijuana service: No Current occupational status: unemployed and student Cognitive needs: No Hearing needs: No Vision needs: Yes Female Reproductive History Menstrual Age of Menarche: 14 control method: pills Questionnaire PHQ-9 Over the last 2 weeks, how often have you been bothered by any of the following problems? 1. Little interest or pleasure in doing things: several days 2. Feeling down, depressed, or hopeless: several days 3. Trouble falling or staying asleep, or sleeping too much: several days 4. Feeling tired or having little energy: several days 5. Poor appetite or overeating: several days 6. Feeling bad about yourself - or that you are a failure or have let yourself or your family down: not at all 7. Trouble concentrating on things, such as reading the newspaper or watching television: not at all 8. Moving or speaking so slowly that other people could have noticed. Or the opposite - being so fidgety or restless that you have been moving around a lot more than usual: several days 9. Thoughts that you would be better off or of hurting yourself in some way: not at all Total score: 6 Depression Screening Interpretation: Positive (Currently followed by Dr. Josefina Moore) Depression Screening Follow-up: Existing condition, In treatment and Community Mental Health Worker F/U Depression Screening Done: Yes Source: Developed by Drs. Titi Palumbo, Tiffanie Gresham, Gary Monterroso and colleagues, with an educational jalen from [employer]. Thrive Questionnaire Date Thrive assessed: 06/05/24 I am a: Patient What is your living situation today?: I have a steady place to live Within the past 12 months, did the food you bought not last and you didn't have the money to get more?: Sometimes True Within the past 12 months, did you worry whether your food would run out before you got money to buy more?: Sometimes True Do you have trouble paying for medicines?: No Do you have trouble getting transportation to medical appointments?: No Do you have trouble paying your heating and electricity bill?: No Do you have trouble taking care of your child, family member or friend?: No Do you have trouble with day-to-day activities such as bathing, preparing meals, shopping, managing finances, etc.?: No Are you interested in more education?: Yes Please select the resources that you would like help with: Education Currently or been in a relationship where the following occur: No concerns reported THRIVE Score: 2 AUDIT C Alcohol Use Questionnaire (AUDIT-C) 1. How often do you have a drink containing alcohol?: Monthly or less 2. How many drinks containing alcohol do you have on a typical day when you are drinking?: 1 or 2 3. How often do you have six or more drinks on one occasion?: Never Total Score: 1 MARITZA-7 AMB Questionnaire MARITZA-7 Date MARITZA - 7 assessed: 06/05/24 Feeling nervous, anxious, or on edge: 2 = More than half the days Not being able to stop or control worryin = More than half the days Worrying too much about different things: 2 = More than half the days Trouble relaxin = More than half the days Being so restless that it is hard to sit still: 2 = More than half the days Becoming easily annoyed or irritable: 2 = More than half the days Feeling afraid as if something awful might happen: 2 = More than half the days Total MARITZA-7 score (0-4 normal; 5-9 mild; 10-14 moderate; 15-21 severe): 14 Source: Developed by Drs. Titi Palumbo, Tiffanie Gresham, Gary Monterroso and colleagues, with an educational jalen from [employer]. MARITZA-7 Assessment Billing MARITZA-7 Assessment Tool: MARITZA-7 Assessment 67242 (Followed by psychiatry) Review of Systems Const Denies chills, Denies fever(s), Denies headache(s) and Denies poor appetite Eyes Details: Goes to [facility] for her routine eye exam Denies change in vision ENT Denies dizziness and Denies headache(s) Card Denies chest pain, Denies rapid heart rate, Denies palpitations and Denies slow heart rate Resp Denies chest congestion, Denies cough, Denies pain on inspiration and Denies wh eezing GI Denies abdominal pain, Denies bloating, Denies change in stool character, Denies constipation, Denies diarrhea, Denies nausea, Denies vomiting and Denies hematemesis Details: Goes to [facility] for her routine Pap and pelvic exam, currently on control pills Reports no additional complaints Musc Denies back pain, Denies arthralgias, Denies joint swelling and Denies numbness Skin/Breast Denies breast pain, Reports breast mass, Denies change in breast shape, Denies change in pigmentation, Denies erythema and Denies rash Neuro Denies dizziness, Denies headache(s) and Denies numbness Psych Reports no additional complaints Endo Denies palpitations Rob/Lymph Denies easy bleeding, Denies easy bruising and Denies lymphadenopathy Aller/Immun Denies wheezing Physical exam (Primary Care) Vital Signs: Last Vital Signs Pulse 106 H 06/05/24 09:05 BP 124/64 06/05/24 09:05 Pulse Ox 98 06/05/24 09:05 Oxygen Delivery Method Room Air 06/05/24 09:05 BMI result Body Mass Index 37.1 Tobacco/Smoking Status: Tobacco use Status Tobacco use date assessed 06/05/24 06/05/24 09:05 Patient Tobacco Use Status Never used Tobacco 06/05/24 09:05 e-Cigarette/Vaping Use Never Used 06/05/24 09:05 PHQ-9: PHQ-9 Score PHQ-9: Total score 6 06/05/24 09:05 Depression Screening Interpretation: Positive (Currently followed by Dr. Josefina Moore) Depression Screening Follow-up: Existing condition, In treatment and Community Mental Health Worker F/U Thrive Assessment: Date of Thrive Assessment Date Thrive assessed 06/05/24 06/05/24 09:05 Currently or been in a relationship where the following occur: No concerns reported Const General: comfortable, no acute distress and alert Nutritional Appearance: obese Orientation/consciousness: patient oriented x3 HENMT Ears: external ears normal, TM's normal bilaterally and EAC's normal General nose exam: Normal external nose present and No nasal discharge present Mouth: Normal oral and palatal mucosa present, oropharynx normal and moist mucou s membranes Eyes General: appearance normal, both eyes and all related structures Conjunctivae: conjunctivae normal Sclerae: sclerae normal Pupils: Equal, round and reactive pupils present EOM: EOMs intact bilaterally Neck Neck: Yes full ROM, Yes no lymphadenopathy and Yes supple Chest Chest palpation & inspection: other (Healed Scar on chest wall) Breast/axilla palpation: normal palpation of the breasts Resp Effort & Inspection: normal respiratory effort and able to speak in complete sentences Auscultation: clear to auscultation bilaterally Cardio Rate: regular rate Rhythm: regular rhythm Heart sounds: S1 normal heart sound present and S2 normal heart sound present GI Palpation (GI): Soft to palpation, nontender and no masses Auscultation: normal bowel sounds Rectal Exam - Female: visual inspection normal, normal sphincter tone and No External hemorrhoid(s) present General: Yes deferred (Sees [facility] for her routine Pap and pelvic exam currently up-to-date) Back/Spine/Pelvis Back: No back tenderness Skin General skin exam: no rashes or lesions noted Neuro General: patient oriented x3, gait normal, tone normal, moves all extremities, Normal light touch and pain sensation and no focal motor deficits Cranial nerves: Yes CN's II-XII intact bilaterally and Yes Equal, round and reactive pupils present Cognition (Neuro): normal cognition Extrem General: Yes full ROM, Yes no joint enlargement, Yes no clubbing, cyanosis or edema and Yes no calf tenderness Psych Appearance: grossly normal and well kempt Mental Status: mental status grossly normal Speech and movement: Normal speech and movement present Affect: normal affect Attitude: cooperative Thought process: Normal thought process present Coding Level of Care Code Est Pt Prev Care [id number]([id number]) Diagnoses Anxiety with depression F41.8 Attention deficit hyperactivity disorder (ADHD), predominantly inattentive type F90.0 Attention deficit-hyperactivity disorder type: predominantly inattentive Obese E66.9 Multiple allergies Z88.9 Convulsions R56.9 Migraine without aura G43.009 Annual visit for general adult medical examination with abnormal findings Z00.01 Mild intermittent asthma J45.20 Additional Codes MARITZA-7 Assessment Billing - MARITZA-7 Assessment Tool: MARITZA-7 Assessment 71085 ([id number]) Assessment & Plan Assessment & Plan (1) Anxiety with depression: Comment: Followed by Josefina Moore Code(s): F41.8 - Other specified anxiety disorders Category: Medical Plan: Followed by psychiatry (2) ADHD: Comment: sees Josefina Moore Code(s): F90.9 - Attention-deficit hyperactivity disorder, unspecified type Category: Medical Qualifiers: Attention deficit-hyperactivity disorder type: predominantly inattentive Qualified Code(s): F90.0 - Attention-deficit hyperactivity disorder, predominantly inattentive type Plan: Currently on Vyvanse followed by Psychiatry (3) Obese: Code(s): E66.9 - Obesity, unspecified Category: Medical Plan: Discussed need to increase activity and weight reduction. Recommended focusing on improving health instead of dieting. Mediterranean diet is a healthy diet that helps, limit food high in fat, sugar, and calories. Eat slowly, pay attention to portion sizes, plan your meals ahead of time, start regular physical activity, at least 150 minutes of moderate intensity exercise, or 90 minutes per week of vigorous exercise. Keeping a food diary, tracking what you eat and your physical activity can help assess what improvements you can make. There are many health problems associated with being overweight/obese, so it is important to improve your diet and exercise. There are medications and surgical options available, but Lifestyle changes are the 1st step. (4) Multiple allergies: Code(s): Z88.9 - Allergy status to unspecified drugs, medicaments and biological substances Category: Medical Plan: Patient has been referred to Allergy immunology but it did not schedule appointment yet, advised to call their office to schedule 1 as she has multiple drug allergies, does not want to get any vaccines at present time until she is seen by varnishing unit tool setter (5) Convulsions: Code(s): R56.9 - Unspecified convulsions Category: Medical Plan: Followed by Urology at [facility], started on gabapentin (6) Migraine without aura: Code(s): G43.009 - Migraine without aura, not intractable, without status migrainosus Category: Medical Plan: Patient states frequency of migraines has decreased ever since she was started on gabapentin by neurologist (7) Annual visit for general adult medical examination with abnormal findings: Code(s): Z00.01 - Encounter for general adult medical examination with abnormal findings Plan: Will check appropriate labs. Recommended dental visit every 6 months and regular eye exams, sees [facility]. She goes to [facility] for routine Pap and pelvic exam which is currently up-to-date, currently started on control pills. Patient does not want to get her flu vaccine COVID booster pneumonia vaccine and advised to wait until she sees varnishing unit tool setter before giving her her HPV vaccination (8) Mild intermittent asthma: Code(s): J45.20 - Mild intermittent asthma, uncomplicated Category: Medical Plan: Currently controlled on montelukast, uses albuterol inhaler as needed. Patient does not want to get vaccines for flu or pneumonia until she sees varnishing unit tool setter
[2024-06-05 09:05] VITALS: BP 124/64; PULSE 106; O2SAT 98; BMI 37.1
== END 2024-06-05 09:37 | disposition home or self-care (01) ==
PROVIDERS: PCP Internal Medicine; Visit Provider Internal Medicine
DX: Z00.00 Encounter for general adult medical examination without abnormal findings (principal); R56.9 Unspecified convulsions; F41.8 Other specified anxiety disorders; F90.0 Attention-deficit hyperactivity disorder, predominantly inattentive type; E66.812 Obesity, class 2; Z68.37 Body mass index [BMI] 37.0-37.9, adult; Z88.9 Allergy status to unspecified drugs, medicaments and biological substances; G43.009 Migraine without aura, not intractable, without status migrainosus; J45.20 Mild intermittent asthma, uncomplicated

== ENCOUNTER → 2024-06-05 08:57 | Outpatient (BNVA) | payer OTHER, SELFPAY | PROVIDERS: PCP Internal Medicine; Visit Provider Internal Medicine | DX: Z00.00 Encounter for general adult medical examination without abnormal findings (principal); F41.8 Other specified anxiety disorders; F90.0 Attention-deficit hyperactivity disorder, predominantly inattentive type; E66.9 Obesity, unspecified; Z68.37 Body mass index [BMI] 37.0-37.9, adult; R56.9 Unspecified convulsions; G43.009 Migraine without aura, not intractable, without status migrainosus; J45.20 Mild intermittent asthma, uncomplicated; Z79.899 Other long term (current) drug therapy; Z88.9 Allergy status to unspecified drugs, medicaments and biological substances | CPT/HCPCS: 96127; 99395 ==

== ENCOUNTER 2024-06-05 09:39 | Outpatient (REF) | payer OTHER, SELFPAY ==
[2024-06-05 13:16] LABS: MANUAL DIFF FLAG NO
[2024-06-05 13:41] LABS: Basophils Absolute Auto 0.1 X10*3/uL (0.0-0.2); Basophils Percent Auto 0.7 % (0-2); Eosinophils Absolute Auto 0.3 X10*3/uL (0.0-0.4); Eosinophils Percent Auto 4.1 % (0-4); Hematocrit 40.5 % (37.0-47.0); Hemoglobin 13.7 g/dl (12.0-16.0); Imm Gran Abs Auto 0.03 X10*3/uL (0.00-0.03); Imm Gran Pct Auto 0.4 % (0.0-0.4); Lymphocytes Absolute Auto 2.3 X10*3/uL (1.2-4.9); Lymphocytes Percent Auto 33.1 % (20-40); Mean Corpuscular HGB Conc 33.8 g/dl (31.0-35.0); Mean Corpuscular Hemoglobin 30.5 pg (27.0-33.0); Mean Corpuscular Volume 90.2 fL (80.0-98.0); Monocytes Absolute Auto 0.5 X10*3/uL (0.1-1.2); Monocytes Percent Auto 6.8 % (2-11); Neutrophils Absolute Auto 3.8 x10*3/uL (2.0-8.3); Neutrophils Percent Auto 54.9 % (45-73); Platelet Count 367 X10*3/uL (160-400); Red Blood Count 4.49 X10*6/uL (4.20-5.50); White Blood Count 6.9 X10*3/uL (4.8-10.8)
[2024-06-05 14:24] LABS: Alanine Aminotransferase 16 U/L (0-31); Albumin Level 4.3 g/dL (3.5-5.0); Alkaline Phosphatase 56 U/L (39-117); Anion Gap 12 (12-20); Aspartate Amino Transferase 13 U/L (5-31); Bilirubin Total 0.5 mg/dL (0.0-1.0); Blood Urea Nitrogen 14 mg/dL (9-16); Calcium 9.4 mg/dL (8.4-10.2); Carbon Dioxide 23 mmol/L (22-29); Chloride 110 mmol/L (96-108); Cholesterol 159 mg/dL (<200); Estimated Glomerular Filt Rate > 60; Glucose Fasting 108 mg/dL (60-99); HDL Cholesterol 43 mg/dL (>40); LDL Cholesterol Calculated 105 mg/dL (<100); Sodium 141 mmol/L (135-145); Total Protein 7.1 g/dL (6.5-8.0); Triglycerides 55 mg/dL (<150); Vitamin D 25-OH Total 39.2 ng/mL (>30)
== END 2024-06-05 09:40 | disposition home or self-care (01) ==
LOC: HO.HMGCLDS 09:39
PROVIDERS: PCP Internal Medicine; Visit Provider Internal Medicine
DX: F41.8 Other specified anxiety disorders (principal); F90.9 Attention-deficit hyperactivity disorder, unspecified type; C44.599 Other specified malignant neoplasm of skin of other part of trunk; J45.30 Mild persistent asthma, uncomplicated; E66.9 Obesity, unspecified; Z88.9 Allergy status to unspecified drugs, medicaments and biological substances; Z87.898 Personal history of other specified conditions
CPT/HCPCS: 36415; 80053; 80061; 82306; 85025

== ENCOUNTER 2024-12-19 14:27 | Emergency (ER) | payer OTHER, SELFPAY ==
--- NOTE | ~2024-12-19 | XR_ITS ---
EXAMINATION: XR ANKLE, RIGHT CLINICAL INFORMATION: twisted ankle/ecchymosis COMPARISON: None available. TECHNIQUE: AP, lateral, and mortise views of the right ankle. FINDINGS: No fracture, dislocation, or suspicious bone lesion. Normal bone mineralization. Normal alignment. Mortise is intact. The talar dome is normal. Joint spaces are preserved. No significant arthropathy. Diffuse soft tissue swelling. XR/XR ankle RT 2V IMPRESSION: 1. No fracture or dislocation. 2. Diffuse soft tissue swelling about the ankle. Electronically signed by: Alexx Morris MD 12/19/2024 03:39 PM EDT
--- NOTE | ~2024-12-19 | XR_ITS ---
EXAMINATION: XR FOOT, RIGHT CLINICAL INFORMATION: foot fracture? COMPARISON: None available. TECHNIQUE: AP, lateral, and oblique views of the right foot. FINDINGS: No fracture, dislocation, or suspicious bone lesion. Normal bone mineralization. Normal alignment. Joint spaces are preserved. No significant arthropathy. Normal plantar arch. Soft tissues appear normal. XR/XR foot RT 2V IMPRESSION: 1. Normal right foot. Electronically signed by: Alexx Morris MD 12/19/2024 03:38 PM EDT
[2024-12-19 14:28] VITALS: BP 113/68; PULSE 82; RESP 18; TEMP 36.2; O2SAT 97; BMI 41.1
--- NOTE | 2024-12-19 14:35 | ED.GENADULT ---
HPI - General Adult General Chief complaint: Extremity Injury, Lower Stated complaint: bruised ankle Time Seen by Provider: 12/19/24 17:47 Source: patient Mode of arrival: ambulatory Limitations: no limitations History of Present Illness ED Provider: Theodore Nguyen HPI narrative: 24-year-old female with history of asthma, GERD, anxiety and depression presents to ED for right ankle pain. Patient states yesterday she was walking on a carpet twisted her right ankle rolled it and this morning woke up with right ankle swollen. Patient denies hitting head, falling to the ground, or any other complaints. Patient is unable to bear weight Related Data Home Medications ?Medication ?Instructions ?Recorded ?Confirmed montelukast 10 mg tablet 10 mg PO BEDTIME 10/28/21 04/30/24 (Singulair) diphenhydramine HCl 25 mg capsule 25 mg PO BEDTIME PRN 09/27/23 04/30/24 (Sleep Aid (diphenhydramine)) escitalopram oxalate 10 mg tablet 10 mg PO DAILY 09/27/23 04/30/24 guanfacine 2 mg tablet,extended 2 mg PO DAILY 09/27/23 04/30/24 release 24 hr hydroxyzine HCl 10 mg tablet 10 mg PO BID 09/27/23 04/30/24 ibuprofen 200 mg capsule (Advil 200 mg PO Q6H PRN 09/27/23 04/30/24 Migraine) aripiprazole 5 mg tablet (Abilify) 5 mg PO BEDTIME 02/25/24 04/30/24 aripiprazole 5 mg tablet 5 mg PO BEDTIME 04/09/24 04/30/24 lisdexamfetamine 20 mg capsule 20 mg PO DAILY 06/05/24 (Vyvanse) lisdexamfetamine 50 mg capsule 50 mg PO QAM 06/05/24 (Vyvanse) Previous Rx's ?Medication ?Instructions ?Recorded albuterol sulfate 2.5 mg/3 mL 2.5 mg (3 mL) inhalation Q4-6H PRN 09/24/21 (0.083 %) solution for nebulization shortness of breath or wheezing #75 mL Ventolin HFA 90 mcg/actuation 2 puff inhalation Q4-6H PRN 09/28/23 aerosol inhaler (albuterol sulfate) shortness of breath or wheezing 30 days #18 grams norethindrone (contraceptive) 0.35 0.35 mg PO DAILY 84 days #84 tabs 04/09/24 mg tablet gabapentin 300 mg capsule See Rx Instructions PO .COMPLEX 30 10/29/24 days #90 caps naproxen 500 mg tablet 500 mg PO BID PRN pain #14 tabs 12/19/24 Allergies Allergy/AdvReac Type Severity Reaction Status Date / Time amoxicillin Allergy Intermediate Hives Verified 12/19/24 14:30 azithromycin [Zithromax] Allergy Intermediate Itching Verified 12/19/24 14:30 Cephalosporins Allergy Intermediate HIVES Verified 12/19/24 14:30 [CEPHALOSPORINS] erythromycin base Allergy Intermediate HIVES Verified 12/19/24 14:30 [ERYTHROMYCIN BASE] levofloxacin [From LEVAQUIN] Allergy Intermediate HIVES Verified 12/19/24 14:30 Penicillins [PENICILLINS] Allergy Intermediate HIVES Verified 12/19/24 14:30 Antibiotic Allergy Intermediate Itching Uncoded 06/05/24 09:17 Cefzil Allergy Intermediate Itching Uncoded 06/05/24 09:17 Review of Systems Review of Systems: right ankle pain Yes all other systems are reviewed and are negative [facility] Past Medical History Medical History (Updated 12/20/24 @ 00:00 by Background Jennifer) Mild intermittent asthma Dermatofibrosarcoma protuberans of chest History of seizure Multiple allergies Constipation COVID-19 Surgical History History of excision of mass (02/23/22) History of excision of mass (01/26/22) History of endoscopy History of tonsillectomy and adenoidectomy Family History Family History Mother Mental health disorder Father Substance use disorder Maternal Grandmother Skin cancer Maternal Grandfather Mental health disorder Social History Social History Household Members: Family Housing: House Are you a primary rn patient care to a significant other at home: No Do you presently have visiting nurse or other home services: No Patient Tobacco Use Status: Never used Tobacco e-Cigarette/Vaping Use: Never Used Second Hand Smoke Exposure: Yes Substance Use Type: Marijuana Advance Directives: No Advance Directives Information Provided: No Do you have a plan to hurt others: No Plan service: No Current occupational status: unemployed and student Cognitive needs: No Hearing needs: No Vision needs: Yes Physical Exam ED Vital Signs: Vital Signs - 24 hr 12/19/24 14:28 Temperature 97.1 F Pulse Rate 82 Respiratory Rate 18 Blood Pressure 113/68 Pulse Oximetry 97 Oxygen Delivery Method Room Air BMI result Body Mass Index 41.1 Const General: cooperative, healthy appearing, comfortable, no acute distress, well developed, alert, awake and Physically active Orientation/consciousness: patient oriented x3 [facility] Head: Yes normal to inspection, Yes No palpable skull fracture present, Yes normocephalic, Yes atraumatic and No abrasion Ears: hearing grossly normal bilaterally, external ears normal, TM's normal bilaterally, TM normal on the right, TM normal on the left, EAC's normal, mastoids normal and no periauricular adenopathy Eyes General: appearance normal, both eyes and all related structures Neck Neck: Yes normal visual inspection, Yes full ROM, Yes no lymphadenopathy, Yes no meningeal signs, Yes trachea midline, Yes supple, No anterior neck swelling and No tender Chest Chest palpation & inspection: normal inspection of the chest and normal palpation of entire chest wall Resp Effort & Inspection: normal respiratory effort and able to speak in complete sentences Auscultation: clear to auscultation bilaterally Cardio Jugular venous distension: no JVD Heart sounds: S1 normal heart sound present and S2 normal heart sound present GI Inspection: Yes normal to inspection Palpation (GI): Soft to palpation, not firm, nontender, no guarding and not rigid General: Yes no CVA tenderness Back/Spine/Pelvis Back: no CVA tenderness and No back tenderness Skin General skin exam: no rashes or lesions noted, elasticity normal and turgor normal Neuro General: patient oriented x3, gait normal, tone normal, moves all extremities, Normal light touch and pain sensation, no meningeal signs, no focal motor deficits, CN's II-XI intact bilaterally and normal sensation to monofilament Extrem General: Yes normal to inspection, Yes full ROM and Yes capillary refill normal Ankle/foot/toe images: 1. positive for ecchymosis and swelling with tenderness. Negative for crepitus, obvious deformity, erythema, hotness or coldness. Rest of extremity normal. Motor neuro exam intact. Vascular exam intact but with pain. Not able to bear weight. Negative for signs of Achilles tendon injury Psych Appearance: grossly normal, well kempt and not disheveled Course Course Course Narrative: RME: 22 year female presents to ED for right ankle pain since last night. Patient states she was walking in the right ankle twisted ever since she has pain and difficulty bearing weight on ankle. I lower extremity positive for swelling ecchymosis around the ankle. Patient sent for x-ray Medical Decision Making Medical Decision Making MDM Narrative: 24-year-old female presents to ED for right ankle swelling and bruising after twisting her ankle yesterday on the carpet at home while walking. Patient has heard a cracking sound Patient is unable to bear weight. X-rays negative for any fractures. Negative for any signs of DVT, compartment syndrome, arterial occlusion, necrotizing fasciitis, osteomyelitits, prany other life-threatening etiology. Patient is placed in Dylan wrap and crutches. Patient's and mother explained worrisome signs and informed to return to the ED immediately she has them. Differential Diagnosis Differential Diagnoses: The differential diagnosis associated with the presentation includes (fracture, disclocation, sprain, ) Admission/Observation Consideration of admission/observation: Escalation of care including admission/observation considered Independent Interpretation I performed an independent interpretation of an: Plain X-Ray Radiology Impression Discussion of test interpretation with radiology: I have reviewed the radiologist's reading. Independent Historian Clinical information obtained from an independent historian. History obtained from or confirmed by: Other (patient) Prescription Management I considered prescription management with: Pain Medication Discharge Plan Discharge Clinical Impression: Sprain and strain of ankle Patient Disposition: Home, Self-Care Instructions: Ankle Sprain (ED), Crutch Instructions (ED), How to Use an Elastic Bandage (ED) Additional Instructions: X-rays came back negative for fracture. Return to the ED immediately for any increased swelling, redness, bluish black discoloration, calf pain, skin feeling tight, chest pain, shortness of breath, or any other concerning symptoms. Recommend follow up with PCP. EXAMINATION: XR FOOT, RIGHT CLINICAL INFORMATION: foot fracture? COMPARISON: None available. TECHNIQUE: AP, lateral, and oblique views of the right foot. FINDINGS: No fracture, dislocation, or suspicious bone lesion. Normal bone mineralization. Normal alignment. Joint spaces are preserved. No significant arthropathy. Normal plantar arch. Soft tissues appear normal. XR/XR foot RT 2V IMPRESSION: 1. Normal right foot. Electronically signed by: Alexx Morris MD 12/19/2024 03:38 PM EDT EXAMINATION: XR ANKLE, RIGHT CLINICAL INFORMATION: twisted ankle/ecchymosis COMPARISON: None available. TECHNIQUE: AP, lateral, and mortise views of the right ankle. FINDINGS: No fracture, dislocation, or suspicious bone lesion. Normal bone mineralization. Normal alignment. Mortise is intact. The talar dome is normal. Joint spaces are preserved. No significant arthropathy. Diffuse soft tissue swelling. XR/XR ankle RT 2V IMPRESSION: 1. No fracture or dislocation. 2. Diffuse soft tissue swelling about the ankle. Electronically signed by: Alexx Morris MD 12/19/2024 03:39 PM EDT Prescriptions: New naproxen 500 mg tablet 500 mg PO BID PRN (Reason: pain) Qty: 14 0RF No Action albuterol sulfate 2.5 mg /3 mL (0.083 %) solution for nebulization 2.5 mg inhalation Q4-6H PRN (Reason: shortness of breath or wheezing) Qty: 75 0RF albuterol sulfate [Ventolin HFA] 90 mcg/actuation HFA aerosol inhaler 2 puff inhalation Q4-6H PRN (Reason: shortness of breath or wheezing) 30 Days Qty: 18 1RF aripiprazole [Abilify] 5 mg tablet 5 mg PO BEDTIME gabapentin 300 mg capsule See Rx Instructions PO .COMPLEX 30 Days Qty: 90 3RF Rx Instructions: 1 cap qhs x's 3 days, then 1 cap bid x's 3 days, then 1 cap tid orally .; escitalopram oxalate 10 mg tablet 10 mg PO DAILY guanfacine 2 mg tablet extended release 24 hr 2 mg PO DAILY hydroxyzine HCl 10 mg tablet 10 mg PO BID ibuprofen [Advil Migraine] 200 mg capsule 200 mg PO Q6H PRN diphenhydramine HCl [Sleep Aid (diphenhydramine)] 25 mg capsule 25 mg PO BEDTIME PRN montelukast [Singulair] 10 mg tablet 10 mg PO BEDTIME aripiprazole 5 mg tablet 5 mg PO BEDTIME norethindrone (contraceptive) 0.35 mg tablet 0.35 mg PO DAILY 84 Days Qty: 84 4RF lisdexamfetamine [Vyvanse] 50 mg capsule 50 mg PO QAM lisdexamfetamine [Vyvanse] 20 mg capsule 20 mg PO DAILY Referrals: Lisa Kirkpatrick MD [Primary Care Provider] - (Ankle Sprain) Stand Alone Forms: Work/School Release Discharge Date/Time: 12/19/24 18:34 Print Language: Chadian
--- OUTSIDE RECORDS SUMMARY | 2024-12-19 18:26 | XMS_ITS | Encounter Summary ---
Author Organization [address] [address] Care Team Providers Care Axle And Frame Mechanic Name Role Phone Jenise Gresham Primary Care Provider [phone] Reason for Visit * Reason Comments Medication Refill Encounter Details Date Type Department Care Team ([facility] st Contact Info) Description 03/25/2022 Refill [facility] Gastroenterology[address] [phone] Violeta De La Cruz MD [address] [place] [id number] Gastroesophageal reflux disease, unspecified whether esophagitis present Social History Tobacco Use Types Packs/Day Years Used Date Smoking Tobacco: Passive Smo ke Exposure - Never Smoker Smokeless Tobacco: Never Comments No Sex and Gender Information Value Date Recorded Sex Assigned at Not on file Legal Sex Female 2:38 PM EDT Gender Identity Not on file Sexual Orientation Not on file documented as of this encounter Miscellaneous Notes * Telephone Encounter - Enid Huerta MA - 03/29/2022 4:09 PM EDT Left Message for the patient to call office back to schedule a follow up appt with Dr De La Cruz * Telephone Encounter - Genet Farmer RN - 03/25/2022 7:55 AM EDT Last appt: 10/04/21 (Follow up in 3-4 months ) Next appt: No show 01/03/22 Admin - Please call family for an appt. Thank you Weight: 101.4 kg Allergies: reviewed Current dosage: Continue Famotidine 20 mg po twice daily documented in this encounter Plan of Treatment Not on file documented as of this encounter Visit Diagnoses Diagnosis Gastroesophageal reflux disease, unspecified whether esophagitis present documented in this encounter Care Teams Axle And Frame Mechanic Relationship Specialty Start Date End Date Jenise Gresham PA [address] [place] [address] [place] [address] PCP - General Physician Senior Media Planner 03/11/21 documented as of this encounter
--- OUTSIDE RECORDS SUMMARY | 2024-12-19 18:26 | XMS_ITS | Encounter Summary ---
[place] [address] Care Team Providers Care Electronic Semiconductor Processor Name Role Phone Jenise Gresham Primary Care Provider [phone] Reason for Visit * Reason Comments Medication Refill Encounter Details Date Type Department Care Team ([facility] st Contact Info) Description 02/22/2022 Refill [facility] Gastroenterology[address] [phone] Violeta De La Cruz MD [address] [place] [phone] Gastroesophageal reflux disease, unspecified whether esophagitis present [...] Telephone Encounter - Enid Huerta MA - 02/24/2022 1:24 PM EDT 02/24/22 - TC to mom to schedule a follow up appt, left a message for mom to call office back to schedule. * Telephone Encounter - Hattie Moses RN - 02/24/2022 9:58 AM EDT Last visit: 10/04/21 Next visit: 01/03/22 no show Weight: 101.4 kg Allergies: reviewed Current dose: Continue Famotidine 20 mg po twice daily Admin- please schedule a return visit documented in this encounter Plan of Treatment Not on file documented as of this encounter Visit Diagnoses Diagnosis Gastroesophageal reflux disease, unspecified whether esophagitis present documented in this encounter Care Teams Electronic Semiconductor Processor Relationship Specialty Start Date End Date Jenise Gresham PA [address] [place] [address] [place] [address] [address] PCP - General Physician Travel Consultant 03/11/21 documented as of this encounter
--- OUTSIDE RECORDS SUMMARY | 2024-12-19 18:26 | XMS_ITS ---
Author Name [facility] Organization Unknown History of Medication Use Medication Directions Dispensed Refills Start Date End Date Stat us dexmethylphenidate (FOCALIN XR) 20 MG 24 hr capsule Take 20 mg by mouth daily active Problems Problem Status Onset Date Problem Type Date of Resoluti on Source Gastroesophageal reflux disease, unspecified whether esophagitis present active 2021-04-13 ProblemAct [facility] Encounters Encounter Type Encounter Reason Primary Diagnosis Location Date [facility] 08/25/2022 [facility] 05/06/2022 [facility] 10/04/2021 [facility] 06/09/2021 Care Team Organization Name Specialty Phone Email Start Date End Da te [facility] Jenise Gresham Primary Care 05/07/2022
--- OUTSIDE RECORDS SUMMARY | 2024-12-19 18:26 | XMS_ITS | Encounter Summary ---
[place] [address] Care Team Providers Care Management Lead Name Role Phone Jenise Gresham Primary Care Provider [phone] Reason for Visit * Reason Comments Medication Refill Encounter Details Date Type Department Care Team (Late st Contact Info) Description 10/18/2021 Refill [facility] Gastroenterology[address] [phone] Violeta De La Cruz MD [address] [place] [address] Gastroesophageal reflux disease, unspecified whether esophagitis present (Primary Dx) Social History Tobacco Use Types Packs/Day Years Used Date Smoking Tobacco: Passive Smo ke Exposure - Never Smoker Smokeless Tobacco: Never Comments No Sex and Gender Information Value Date Recorded Sex Assigned at Not on file Legal Sex Female 2:38 PM EDT Gender Identity Not on file Sexual Orientation Not on file documented as of this encounter Miscellaneous Notes * Telephone Encounter - Genet Farmer RN - 10/18/2021 1:18 PM EST Last visit: 10/04/21 Next visit: 01/03/22 Weight: 101.4 kg Allergies: reviewed Current dose: Continue Famotidine 20 mg po twice daily documented in this encounter Plan of Treatment Not on file documented as of this encounter Visit Diagnoses Diagnosis Gastroesophageal reflux disease, unspecified whether esophagitis present- Primary documented in this encounter Care Teams Management Lead Relationship Specialty Start Date End Date Jenise Gresham PA [address] [place] [address] [place] [address] PCP - General Physician Management Developer 03/11/21 documented as of this encounter
--- OUTSIDE RECORDS SUMMARY | 2024-12-19 18:26 | XMS_ITS | Encounter Summary ---
[place] [address] Care Team Providers Care Public Health Aide Name Role Phone Jenise Gresham Primary Care Provider [phone] Reason for Visit * Reason Comments Medication Refill Encounter Details Date Type Department Care Team (Late st Contact Info) Description 11/12/2021 Refill [facility] Gastroenterology[address] [phone] Violeta De La Cruz MD [address] [place] [address] Gastroesophageal reflux disease, unspecified whether esophagitis present [...] Telephone Encounter - Genet Farmer RN - 11/12/2021 2:34 PM EDT Last visit: 10/04/21 Next visit: 01/03/22 Weight : 101.4 kg Allergies: reviewed Current dose: Continue Famotidine 20 mg po twice daily documented in this encounter Plan of Treatment Not on file documented as of this encounter Visit Diagnoses Diagnosis Gastroesophageal reflux disease, unspecified whether esophagitis present documented in this encounter Care Teams Public Health Aide Relationship Specialty Start Date End Date Jenise Gresham PA [address] [place] [address] [place] [address] PCP - General Physician Substance Abuse Services Director 03/11/21 documented as of this encounter
--- OUTSIDE RECORDS SUMMARY | 2024-12-19 18:26 | XMS_ITS | Clinical Summary ---
Author Organization [facility] Address [address] [place] [address] Care Team Providers Care Oil Exploration Engineer Name Role Phone Jenise Gresham Primary Care Provider Source Comments Please note that some or all of the patient's information could have additional privacy protections. State laws allow health care providers to render certain types of treatment to minors without parental consent. Please do not assume that this information can be shared solely by obtaining just the consent of the patient's parent/guardian. Please determine if all or part of the patient's care was rendered without parent/guardian involvement. And, if so, obtain the minor's consent prior to disclosure.[facility] Allergies Active Allergy Reactions Criticality Noted Date Comments Macrolide Antibiotics 04/13/2021 Sulfa (Sulfonamide Antibiotics) 03/22 Medications dexmethylphenida te (FOCALIN XR) 20 MG 24 hr capsule Take 20 mg by mouth daily Active sertraline (ZOLOFT) 50 MG tablet Take by mouth daily Active lisdexamfetamine (VYVANSE) 20 MG capsule Take 30 mg by mouth every morning Active norgestimate-eth inyl estradioL (ORTHO TRI-CYCLEN LO) 0.18/0.215/0.25 mg-25 mcg per tablet Take 1 tablet by mouth daily Active famotidine (PEPCID) 20 MG tabletIndication s:Gastroesophage al reflux disease, unspecified whether esophagitis present Take 1 tablet by mouth twice daily 60 tablet 03/25/2022 Active omeprazole (PRILOSEC) 40 MG capsuleIndicatio ns:Gastroesophag eal reflux disease, unspecified whether esophagitis present Take 1 capsule by mouth once daily 30 capsule 08/18/2022 Active Active Problems Problem Noted Date Diagnosed Date Gastroesophageal reflux dise ase, unspecified whether esophagitis present 04/13/2021 Overview (04/13/2021): Added automatically from request for surgery [id number] Family History Medical History Relation Name Comments Irritable bowel syndrome Maternal Aunt Diabetes type II Maternal Grandmother No Known Problems Mother Anesthesia problems Neg Hx Relation Name Status Comments Maternal Aunt Maternal Grandmother Mother Social History Tobacco Use Types Packs/Day Years Used Date Smoking Tobacco: Passive Smo ke Exposure - Never Smoker Smokeless Tobacco: Never Other Needs Answer Date Recorded Anything else about your child you'd like help w ith? Not on file 05/05/2023 Share good news about positive changes: Not on f ile 05/05/2023 Comments No Sex and Gender Information Value Date Recorded Sex Assigned at Not on file Legal Sex Female 2:38 PM EDT Gender Identity Not on file Sexual Orientation Not on file Last Filed Vital Signs Vital Sign Reading Time Taken Comments Blood Pressure 108/72 10/04/2021 8:40 AM EST Pulse 100 10/04/2021 8:40 AM EST Temperature 36.7 ??C (98.1 ??F) 05/19/2021 1:01 PM ED T Respiratory Rate 20 05/19/2021 1:01 PM EDT Oxygen Saturation 99% 05/19/2021 1:01 PM EDT Inhaled Oxygen Concentration - - Weight 101.4 kg (223 lb 8.7 oz) 10/04/2021 8:40 AM EST Height 158.7 cm (5' 2.48 ) 10/04/2021 8:40 AM ES T Body Mass Index 40.26 10/04/2021 8:40 AM EST Plan of Treatment Health Maintenance Due Date Last Done Comments DTaP/TDAP/TD VACCINES (1 - Tdap) 2009 ADOLESCENT HIV SCREENING 2015 COVID-19 Vaccine (2023-2 5 season) 2024 INFLUENZA (#1) 2024 NIRSEVIMAB VACCINES UNDER 8 MONTHS Aged Out No longer eligible based on patient's age to complete this topic Insurance [facility] [employer] Care Teams Oil Exploration Engineer Relationship Specialty Start Date End Date Jenise Gresham PA [address] [place] [address] [place] [address] PCP - General Physician Lube Man 03/11/21
--- OUTSIDE RECORDS SUMMARY | 2024-12-19 18:26 | XMS_ITS | Encounter Summary ---
[place] [address] Care Team Providers Care Freight Breaker Name Role Phone Jenise Gresham Primary Care Provider [phone] Reason for Visit * Reason Comments Medication Refill Encounter Details Date Type Department Care Team ([facility] st Contact Info) Description 07/07/2022 Refill [facility] Gastroenterology[address] [phone] Violeta De La Cruz MD [address] [place] [address] Gastroesophageal reflux disease, unspecified whether esophagitis present [...] encounter Miscellaneous Notes * Telephone Encounter - Hoa Garay RN - 07/07/2022 3:58 PM EST Last seen clinic 10-04-21 Dose correct Next appt 07-19-22 documented in this encounter Plan of Treatment Not on file documented as of this encounter Visit Diagnoses Diagnosis Gastroesophageal reflux disease, unspecified whether esophagitis present documented in this encounter Care Teams Freight Breaker Relationship Specialty Start Date End Date Jenise Gresham PA [address] [place] [address] [place] [address] PCP - General Physician Quarter Lining Smoother 03/11/21 documented as of this encounter
--- OUTSIDE RECORDS SUMMARY | 2024-12-19 18:26 | XMS_ITS | Encounter Summary ---
Author Organization [address] [address] Care Team Providers Care Lithographic Proofer Apprentice Name Role Phone Jenise Gresham Primary Care Provider Reason for Visit * Reason Comments Medication Refill Encounter Details Date Type Department Care Team (Late st Contact Info) Description 01/19/2022 Refill [facility] Gastroenterology[address] [address] Violeta De La Cruz MD [address] [place] [id number] Gastroesophageal reflux disease, unspecified whether esophagitis present [...] encounter Miscellaneous Notes * Telephone Encounter - Hattie Moses RN - 01/19/2022 2:18 PM EDT Last visit: 10/04/21 Next visit: 01/03/22 Weight: 101.4 kg Allergies: reviewed Current dose: Continue Famotidine 20 mg po twice daily documented in this encounter Plan of Treatment Not on file documented as of this encounter Visit Diagnoses Diagnosis Gastroesophageal reflux disease, unspecified whether esophagitis present documented in this encounter Care Teams Lithographic Proofer Apprentice Relationship Specialty Start Date End Date Jenise Gresham PA [address] [place] [address] [place] [address] PCP - General Physician Purification Director 03/11/21 documented as of this encounter
== END 2024-12-19 18:34 | disposition home or self-care (01) ==
PROVIDERS: Emergency Provider Emergency Medicine; PCP Internal Medicine
DX: S93.401A Sprain of unspecified ligament of right ankle, initial encounter (principal); M25.571 Pain in right ankle and joints of right foot; X50.1XXA Overexertion from prolonged static or awkward postures, initial encounter; Y93.9 Activity, unspecified; Y92.009 Unspecified place in unspecified non-institutional (private) residence as the place of occurrence of the external cause; Y99.8 Other external cause status; Z79.899 Other long term (current) drug therapy
CPT/HCPCS: 73600; 73620; 99281; 99283

== ENCOUNTER → 2024-12-19 14:31 | Outpatient (BNV) | payer OTHER, SELFPAY | PROVIDERS: PCP Internal Medicine; Visit Provider Radiology Diagnostic Radiology | DX: M25.571 Pain in right ankle and joints of right foot (principal) | CPT/HCPCS: 73600; 73620 ==

== ENCOUNTER 2025-01-16 13:54 | Outpatient (AMB) | payer OTHER, SELFPAY ==
--- NOTE | 2025-01-16 14:06 | MHC.OFFVIS ---
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 Required: No Accompanied by: Mother Allergies amoxicillin Allergy (Intermediate, Verified 01/16/25 14:12) Hives azithromycin [Zithromax] Allergy (Intermediate, Verified 01/16/25 14:12) Itching Cephalosporins [CEPHALOSPORINS] Allergy (Intermediate, Verified 01/16/25 14:12) HIVES erythromycin base [ERYTHROMYCIN BASE] Allergy (Intermediate, Verified 01/16/25 14:12) HIVES levofloxacin [From LEVAQUIN] Allergy (Intermediate, Verified 01/16/25 14:12) HIVES Penicillins [PENICILLINS] Allergy (Intermediate, Verified 01/16/25 14:12) HIVES Antibiotic Allergy (Intermediate, Uncoded 06/05/24 09:17) Itching Cefzil Allergy (Intermediate, Uncoded 06/05/24 09:17) Itching Medication List - Last Reconciled 01/16/25 by ALEYDA Kingsley albuterol sulfate 2.5 mg (3 mL) inhalation Q4-6H PRN aripiprazole (Abilify) 5 mg PO BEDTIME aripiprazole 5 mg PO BEDTIME diphenhydramine HCl (Sleep Aid (diphenhydramine)) 25 mg PO BEDTIME PRN escitalopram oxalate 10 mg PO DAILY gabapentin 1 cap qhs x's 3 days, then 1 cap bid x's 3 days, then 1 cap tid orally .; 30 days guanfacine ER 2 mg PO DAILY hydroxyzine HCl 10 mg PO BID ibuprofen (Advil Migraine) 200 mg PO Q6H PRN lisdexamfetamine (Vyvanse) 50 mg PO QAM lisdexamfetamine (Vyvanse) 20 mg PO DAILY montelukast (Singulair) 10 mg PO BEDTIME naproxen 500 mg PO BID PRN norethindrone (contraceptive) 0.35 mg PO DAILY 84 days Ventolin HFA 90 mcg/actuation (albuterol sulfate) 2 puffs inhalation Q4-6H PRN 30 days NS HPI Comments Details: 24-yr-old female presents for f/u visit of seizure. Pt denies any significant interval medical changes. She is scheduled to have follow-up chest MRI to monitor for dermatofibrosarcoma recurrence. Denies any seizure activity. However, her mother reports a couple of weeks ago, around 2pm, pt was walking into the kitchen, she felt lightheaded/dizzy, her legs became shaky, she became pale poor white , and passed out briefly. no significant postictal symptoms, once patient take some fluids felt better. She had woken up at about 12pm, had not eaten or drank fluids since 8pm the night before. She was trying to a Keto diet- but she is not sure this diet is right for her. She can also become lightheaded in the shower- to the point where she needs to sit down. She also reports about a month ago, she rolled her right ankle, which caused marked ankle foot/swelling/bruising, which is slowly resolving, however she still has right ankle swelling and tenderness. she did have [place] [facility] [place] the following day, and right ankle/ foot x-ray, which showed only soft tissue swelling. she was given crutches, and has since been able to wean off of using crutches. She notes she has rolled this ankle before a few times, and has a h/o danilo knee pain. 04/30/2024 previous HPI: Brain MRI was unremarkable, however there was some motion degradation. EEG results were considered mildly abnormal due to several bouts of bifrontal rhythmic moderate voltage theta that may suggest paroxysmal disorder. HST did not show AHI 0.5/hr, O2 maxine 87%. Upon review of the EEG, we advised pt to start Gabapentin. Pt reports she has had 3 convulsions since starting Gabapentin 2 months ago, which is less than the 1-2 convulsions per month prior. The convulsions are not as severe, her eyes will roll back, she will feel slightly SOB- almost panting, and she will pass out briefly. She has been compliant w/ Gabapentin. When she increased dose from 300mg qd to 300mg bid, she had restlessness in her legs, however this has since subsided. She is now on Gabapentin 300mg tid. She is tolerating this better. She has not had any menstrual migraine since starting Gabapentin. She is sleeping better w/ OTC sleep gummies. Not needing to take her prescription sleep meds. 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 [facility] Medical History (Updated 01/16/25 @ 16:00 by ALEYDA Kingsley) Dermatofibrosarcoma protuberans of chest Mild intermittent asthma History of seizure Multiple allergies Constipation COVID-19 Surgical History History of excision of mass (02/23/22) History of excision of mass (01/26/22) History of endoscopy History of tonsillectomy and adenoidectomy Family History Mother Mental health disorder Father Substance use disorder Maternal Grandmother Skin cancer Maternal Grandfather Mental health disorder Social History Household Members: Family Housing: House Are you a primary foster care worker to a significant other at home: No Do you presently have visiting nurse or other home services: No Patient Tobacco Use Status: Never used Tobacco e-Cigarette/Vaping Use: Never Used Second Hand Smoke Exposure: Yes Substance Use Type: Marijuana service: No Current occupational status: unemployed and student Cognitive needs: No Hearing needs: No Vision needs: Yes Female Reproductive History Menstrual Age of Menarche: 14 Physical Exam Vital Signs: Last Vital Signs Pulse 84 01/16/25 14:07 BP 90/62 01/16/25 14:07 Pulse Ox 98 01/16/25 14:07 Oxygen Delivery Method Room Air 01/16/25 14:07 BMI result Body Mass Index 41.9 Const General: cooperative and no acute distress Orientation/consciousness: patient oriented x3 Resp Effort & Inspection: normal respiratory effort and able to speak in complete sentences Neuro Other: Mild right ankle swelling without ecchymosis. Patient able to fully rotate right ankle, and walk on right foot without pain. General: patient oriented x3, gait normal and moves all extremities Cranial nerves: Yes CN's II-XII intact bilaterally Psych Appearance: grossly normal Mental Status: mental status grossly normal Speech and movement: Normal speech and movement present Affect: normal affect Attitude: cooperative Assessment & Plan Assessment & Plan (1) Convulsions: Code(s): R56.9 - Unspecified convulsions Category: Medical (2) Syncope: Code(s): R55 - Syncope and collapse Category: Medical (3) Right ankle sprain: Code(s): S93.401A - Sprain of unspecified ligament of right ankle, initial encounter Category: Medical (4) Migraine without aura: Code(s): G43.009 - Migraine without aura, not intractable, without status migrainosus Category: Medical Plan Previous workup: Brain MRI was unremarkable, however there was some motion degradation. EEG results were considered mildly abnormal due to several bouts of bifrontal rhythmic moderate voltage theta that may suggest paroxysmal disorder. HST did not show AHI 0.5/hr, O2 maxine 87%. for convulsions: Convulsions decreased significantly since starting Gabapentin, in setting of mildly abnormal EEG. This does increase likelihood that pt's episodes are epileptic. Continue Gabapentin 300mg po TID. check CBC and CMP for recent syncopal episode: Episode likely secondary to patient not having in or drink fluids in over 18 hours. stress importance of drinking and eating regularly, goal of at least 64 fluid oz per day. Advised to drink a 12 oz of fluid bolus prior to showers and to take a warm rather than hot shower. For right ankle strain status post fall with negative right ankle/ foot x-ray: PT eval and treat Pt advised to let us know if her menstrual migraine reoccurs. Will follow-up upon review of above and patient to follow-up in clinic in 6 months or sooner prn. Orders: Orders Complete Blood Count Auto Diff Today R55 - Syncope and collapse, R56.9 - Unspecified convulsions PT Evaluation and Treatment Today S93.401A - Sprain of unspecified ligament of right ankle, initial encounter Comprehensive Met. Panel Today R55 - Syncope and collapse, R56.9 - Unspecified convulsions Medications: Changed From gabapentin 1 cap qhs x's 3 days, then 1 cap bid x's 3 days, then 1 cap tid orally .; 30 days 90 caps 3RF R56.9 - Unspecified convulsions, R94.01 - Abnormal electroencephalogram [EEG] To gabapentin 300 mg PO TID 90 days 270 caps 1RF R56.9 - Unspecified convulsions, R94.01 - Abnormal electroencephalogram [EEG] Coding Level of Care Code Est Pt Level 4 (04241) Diagnoses Convulsions R56.9 Syncope R55 Right ankle sprain S93.401A Migraine without aura G43.009
[2025-01-16 14:07] VITALS: BP 90/62; PULSE 84; O2SAT 98; BMI 41.9
== END 2025-01-16 14:48 | disposition home or self-care (01) ==
LOC: HO.HSMS 13:55
PROVIDERS: PCP Internal Medicine; Visit Provider Nurse Practitioner Family
DX: R56.9 Unspecified convulsions (principal); R55 Syncope and collapse; S93.401A Sprain of unspecified ligament of right ankle, initial encounter; G43.009 Migraine without aura, not intractable, without status migrainosus
CPT/HCPCS: 99214

== ENCOUNTER → 2025-01-16 13:54 | Outpatient (BNVA) | payer OTHER, SELFPAY | PROVIDERS: PCP Internal Medicine; Visit Provider Nurse Practitioner Family | DX: G43.009 Migraine without aura, not intractable, without status migrainosus (principal); S93.401A Sprain of unspecified ligament of right ankle, initial encounter; R56.9 Unspecified convulsions; R55 Syncope and collapse; X58.XXXA Exposure to other specified factors, initial encounter; Y93.9 Activity, unspecified; Y92.9 Unspecified place or not applicable; Y99.9 Unspecified external cause status | CPT/HCPCS: 99212 ==

== ENCOUNTER 2025-02-18 13:22 | Outpatient (AMB) | payer OTHER, SELFPAY ==
--- NOTE | 2025-02-18 13:27 | MHC.OFFVIS ---
Vital Signs 02/18/25 13:43 Height 5 ft 2 in Weight 234 lb BMI 42.8 BP 126/57 L Blood Pressure Location Lt brachial Position Sitting Pulse 89 Intake Visit Reasons: check dermatofibrosacroma protuberans of chest Intake Note: Patient is seen in office for MRI results, post wide excision of a with dermatofibrosarcoma protuberans of the left chest. Pt c/o: here to follow up on scar in the chest, denies any concerns MRI:11/10/23 Sba Business Development Officer Required: No Hoop Maker Helper Machine: Hoop Maker Helper Machine Present Accompanied by: Mother Allergies amoxicillin Allergy (Intermediate, Verified 02/18/25 13:36) Hives azithromycin (Zithromax) Allergy (Intermediate, Verified 02/18/25 13:36) Itching Cephalosporins (CEPHALOSPORINS) Allergy (Intermediate, Verified 02/18/25 13:36) HIVES erythromycin base (ERYTHROMYCIN BASE) Allergy (Intermediate, Verified 02/18/25 13:36) HIVES levofloxacin (From LEVAQUIN) Allergy (Intermediate, Verified 02/18/25 13:36) HIVES Penicillins (PENICILLINS) Allergy (Intermediate, Verified 02/18/25 13:36) HIVES Antibiotic Allergy (Intermediate, Uncoded 02/18/25 13:36) Itching Cefzil Allergy (Intermediate, Uncoded 02/18/25 13:36) Itching HPI Comments Details: 25-year-old female patient presenting with a palpable mass in the anterior chest X extending into the left breast status post excision revealing dermatofibrosarcoma protuberans. She subsequently returned to the OR for wider excision to assure complete removal on 02/23/2022. This revealed revealed residual DFSP. She underwent a breast MRI on 08/03/2022. This revealed mild scarring in the upper inner soft tissue of the left breast near the midline. No mass or abnormal enhancement was identified. No fluid collections were identified. She was evaluated by [facility] in no further adjuvant treatment was felt to be required. Since her last visit she feels the scar as light and and softened. She denies any pain or itchiness in the skin. There has been no discharge appreciated. Her most recent MRI from 11/10/2023 revealed unchanged sagittally oriented linear fibrotic scar in the medial border of the left breast extending from the subdermal tissue down to the external border of left pectoralis major muscle. No evidence of metastatic disease in the thorax. She is now due for an annual chest MRI [facility] Medical History Dermatofibrosarcoma protuberans of chest Mild intermittent asthma History of seizure Multiple allergies Constipation COVID-19 Surgical History History of excision of mass (02/23/22) History of excision of mass (01/26/22) History of endoscopy History of tonsillectomy and adenoidectomy Family History Mother Mental health disorder Father Substance use disorder Maternal Grandmother Skin cancer Maternal Grandfather Mental health disorder Social History Household Members: Family Housing: House Are you a primary child care provider to a significant other at home: No Do you presently have visiting nurse or other home services: No Patient Tobacco Use Status: Never used Tobacco e-Cigarette/Vaping Use: Never Used Second Hand Smoke Exposure: Yes Substance Use Type: Marijuana service: No Current occupational status: unemployed and student Cognitive needs: No Hearing needs: No Vision needs: Yes Female Reproductive History Menstrual Age of Menarche: 14 Review of Systems Const All systems reviewed & are unremarkable except as noted in HPI and below Physical Exam Vital Signs: Last Vital Signs Pulse 89 02/18/25 13:43 BP 126/57 L 02/18/25 13:43 BMI result Body Mass Index 42.8 Const General: no acute distress Nutritional Appearance: well nourished Orientation/consciousness: patient oriented x3 Limitations: no limitations Chest Other: Excision site in the left medial breast is clean and intact; incision is much softer with no evidence of keloid hypertrophy. The scar has widened in the center of the chest. No palpable masses appreciated. No new subcutaneous lesions are appreciated. Chest/axillae images:  1. Residual scar over sternum and left breast Resp Effort & Inspection: normal respiratory effort, no audible wheezes, no cough and no respiratory distress GI Inspection: Yes normal to inspection Skin Other: Warm, dry, no rash, left breast as noted above Neuro General: patient oriented x3 Extrem Other: No edema Assessment & Plan Assessment & Plan (1) Dermatofibrosarcoma protuberans of chest: Comment: removed 02/2022, sees Dr Garcia Code(s): C44.599 - Other specified malignant neoplasm of skin of other part of trunk Category: Medical Plan Patient returns for follow-up examination after wide excision of a with dermatofibrosarcoma protuberans of the left chest. Her wounds remained clean and intact. Wounds are clean with no evidence of recurrent disease on clinical examination. I would recommend follow-up chest MRI to evaluate for any recurrent disease. Patient expressed understanding and agrees with the plan. I also recommended she return in 1 year for follow-up examination. Coding Level of Care Code Est Pt Level 3 (65647) Complex EM visit Add On G2211 Diagnoses Dermatofibrosarcoma protuberans of chest C44.599
[2025-02-18 13:43] VITALS: BP 126/57; PULSE 89; BMI 42.8
--- OUTSIDE RECORDS SUMMARY | 2025-02-18 14:33 | XMS_ITS | Encounter Summary ---
Author Organization [address] [address] Care Team Providers Care Supervisor Bleach Plant Name Role Phone Jenise Gresham Primary Care Provider Reason for Visit * Reason Comments Medication Refill Encounter Details Date Type Department Care Team (Late st Contact Info) Description 01/19/2022 Refill [facility] Gastroenterology[address] [address] Violeta De La Cruz MD [address] [place] [id number] Gastroesophageal reflux disease, unspecified whether esophagitis present [...] present documented in this encounter Care Teams Supervisor Bleach Plant Relationship Specialty Start Date End Date Jenise Gresham PA [address] [place] [address] [place] [address] PCP - General Physician Fluorescent Lamp Replacer 03/11/21 documented as of this encounter
--- OUTSIDE RECORDS SUMMARY | 2025-02-18 14:33 | XMS_ITS ---
Author Name [facility] Organization Unknown History of Medication Use Medication Directions Dispensed Refills Start Date End Date Stat us dexmethylphenidate (FOCALIN XR) 20 MG 24 hr capsule Take 20 mg by mouth daily active Problems Problem Status Onset Date Problem Type Date of Resoluti on Source Gastroesophageal reflux disease, unspecified whether esophagitis present active 2021-04-13 ProblemAct [facility] Encounters Encounter Type Encounter Reason Primary Diagnosis Location Date [facility] 08/25/2022 [facility] 05/06/2022 [facility] 10/04/2021 [facility] 06/09/2021 Care Team Organization Name Specialty Phone Email Start Date End Da te [facility] Jenise Gresham Primary Care 05/07/2022
== END 2025-02-18 14:04 | disposition home or self-care (01) ==
LOC: HO.HGS 13:22
PROVIDERS: PCP Internal Medicine; Visit Provider Surgery
DX: C44.599 Other specified malignant neoplasm of skin of other part of trunk (principal)
CPT/HCPCS: 99213; G2211

== ENCOUNTER → 2025-02-18 13:22 | Outpatient (BNVA) | payer OTHER, SELFPAY | PROVIDERS: PCP Internal Medicine; Visit Provider Surgery | DX: Z71.2 Person consulting for explanation of examination or test findings (principal); C44.599 Other specified malignant neoplasm of skin of other part of trunk | CPT/HCPCS: 99212 ==

== ENCOUNTER 2025-03-10 12:34 | Outpatient (REF) | payer OTHER, SELFPAY ==
--- OUTSIDE RECORDS SUMMARY | 2025-03-10 13:19 | XMS_ITS | Clinical Summary ---
Author Organization [facility] Address [address] [place] [id number] Phone Care Team Providers Care Package Dye Stand Loader Name Role Phone Self-Referred, Patient Unavailable Unavailab Lisa Mata MD Primary Care Provider Francis Sarabia MD Unavailable [phone] Milan Valdez MD Unavailable [phone] Allergies Active Allergy Reactions Criticality Noted Date Comments Macrolide Antibiotics 04/13/2021 Penicillins Hives 06/06/2022 Sulfa (Sulfonamide Antibiotics) 03/22 Medications PROAIR HFA 90 mcg/actuation inhaler INHALE 2 PUFFS BY MOUTH EVERY 4 TO 6 HOURS NEEDED FOR SHORTNESS OF BREATH OR WHEEZING 2 Active cloNIDine HCL (CATAPRES) 0.1 MG tablet TAKE 1 TO 2 TABLETS BY MOUTH EVERY DAY AT BEDTIME FOR ANXIETY 2 Active VYVANSE 10 mg capsule TAKE 1 CAPSULE BY MOUTH ONCE DAILY AT NOON WITH FOOD 2 Active VYVANSE 60 mg capsule 2 Active ADVAIR DISKUS 500-50 mcg/dose DISKUS INHALE 1 DOSE BY MOUTH EVERY 12 HOURS DIRECTED 2 Active montelukast (SINGULAIR) 10 mg tablet Take 10 mg by mouth every evening. 2 Active omeprazole (PRILOSEC) 40 MG capsule Take 40 mg by mouth daily. 2 Active sertraline (ZOLOFT) 100 MG tablet TAKE 1 TABLET BY MOUTH ONCE DAILY (DOSE INCREASE) 2 Active Active Problems Problem Noted Date Diagnosed Date Dermatofibrosarcoma protuberans of chest 022 Family History Medical History Relation Comments Brain cancer Maternal Cousin Melanoma Maternal Cousin Basal cell carcinoma Maternal Grandmother Relation Status Comments Maternal Cousin Maternal Grandmother Social History Tobacco Use Types Packs/Day Years Used Date Smoking Tobacco: Never Smokeless Tobacco: Never Alcohol Use Standard Drinks/Week Comments Yes 0 (1 standard drink = 0.6 oz pur e alcohol) occasional Education Answer Date Recorded Are you interested in more education? Not on aleksandar e 12/16/2022 Are you concerned about learning? Not on file 12/16/2022 No 12/16/2022 No 12/16/2022 Digital Access Answer Date Recorded No 01/14/2023 No 01/14/2023 No 01/14/2023 Reliable internet access at home? Not on file 01/14/2023 Device with a working camera? Not on file Comments Unknown Sex and Gender Information Value Date Recorded Sex Assigned at Not on file Legal Sex Female 6:35 PM EDT Gender Identity Not on file Sexual Orientation Not on file Last Filed Vital Signs Vital Sign Reading Time Taken Comments Blood Pressure 150/90 06/14/2022 11:54 AM EDT Pulse 131 06/14/2022 11:54 AM EDT Temperature 36.4 C (97.6 F) 06/14/2022 11:54 AM EDT Respiratory Rate 17 06/14/2022 11:5 4 AM EDT Oxygen Saturation 98% 06/14/2022 11: 54 AM EDT Inhaled Oxygen Concentration - - Weight 105.4 kg (232 lb 5.8 oz) 022 11:54 AM EDT Height 158.3 cm (5' 2.32 ) 06/14/2022 1 1:54 AM EDT Body Mass Index 42.06 06/14/2022 11:54 AM EDT Plan of Treatment Health Maintenance Due Date Last Done Comments Adult Td,Tdap Booster 2002 HPV VACCINES (1 - Risk 3-dos e series) 2013 DEPRESSION SCREENING 2014 SMOKING Hx and SMOKELESS TOBACCO SCREENING 2015 CHLAMYDIA SCREENING 2018 MENINGOCOCCAL VACCINES (B) ( 1 of 2 - Standard) 2018 HEPATITIS C SCREENING 02/03/2020 HIV ONE-TIME SCREENING (18-6 5 YEARS) 02/03/2020 PNEUMOCOCCAL VACCINES (0-49 years) (1 of 2 - PCV) 2021 PAP SMEAR 2023 COVID-19 VACCINE (3 - 2023-2 5 season) 2024 07/22/2021, 07/01/2021 MENINGOCOCCAL VACCINES (ACWY) Completed 11/06/2018 HEPATITIS A VACCINES Aged Out No long er eligible based on patient's age to complete this topic HIB VACCINES Aged Out No longer eligi ble based on patient's age to complete this topic Medical Devices Not on file [facility] Care Teams Package Dye Stand Loader Relationship Specialty Start Date End Date Lisa Kirkpatrick MD PCP - General Internal Medicine 05/18/22 Self-Referred, Patient 05/18/22 Francis Sarabia MD [address] [place] [id number] Medical Oncology 06/14/22 Milan Valdez MD [address] [place] [address] General Surgery 06/14/22 Additional Source Comments The information contained in this document represents components of the legal health record. It is not the complete legal health record.[facility]
[2025-03-10 16:17] LABS: MANUAL DIFF FLAG NO
[2025-03-10 16:23] LABS: Hematocrit 41.1 % (37.0-47.0); Hemoglobin 14.0 g/dl (12.0-16.0); Imm Gran Abs Auto 0.02 X10*3/uL (0.00-0.03); Imm Gran Pct Auto 0.3 % (0.0-0.4); Lymphocytes Absolute Auto 2.7 X10*3/uL (1.2-4.9); Mean Corpuscular HGB Conc 34.1 g/dl (31.0-35.0); Mean Corpuscular Hemoglobin 30.7 pg (27.0-33.0); Mean Corpuscular Volume 90.1 fL (80.0-98.0); NRBC Abs Auto 0.000 X10*3/uL (0.0-0.012); NRBC Pct Auto 0.0 /100WBC (0.0-0.2); Platelet Count 352 X10*3/uL (160-400); Red Blood Count 4.56 X10*6/uL (4.20-5.50); White Blood Count 7.4 X10*3/uL (4.8-10.8)
[2025-03-10 16:36] LABS: Alanine Aminotransferase 18 U/L (0-31); Albumin Level 4.5 g/dL (3.5-5.0); Alkaline Phosphatase 48 U/L (39-117); Anion Gap 12 (12-20); Aspartate Amino Transferase 23 U/L (5-31); Blood Urea Nitrogen 14 mg/dL (9-16); Calcium 8.8 mg/dL (8.4-10.2); Carbon Dioxide 21 mmol/L (22-29); Chloride 111 mmol/L (96-108); Estimated Glomerular Filt Rate > 60; Potassium 4.1 mmol/L (3.3-5.1); Sodium 140 mmol/L (135-145); Total Protein 7.2 g/dL (6.5-8.0)
== END 2025-03-10 12:35 | disposition home or self-care (01) ==
LOC: HO.HMGCLDS 12:34
PROVIDERS: PCP Internal Medicine; Visit Provider Nurse Practitioner Family
DX: R55 Syncope and collapse (principal); R56.9 Unspecified convulsions
CPT/HCPCS: 36415; 80053; 85025

== ENCOUNTER 2025-03-11 15:33 | Outpatient (AMB) | payer OTHER, SELFPAY ==
--- NOTE | 2025-03-11 15:39 | A.OFFVIS_ITS ---
Vital Signs 03/11/25 15:40 Height 5 ft 2 in Weight 234 lb BMI 42.8 BP 112/64 Blood Pressure Location Rt brachial Position Sitting Pulse 98 Pulse Source Pulse Oximeter Pulse Oximetry (%) 99 Oxygen Delivery Method Room Air Intake Visit Reasons: Follow Up Weather Stripper Required: No Accompanied by: Mother Allergies amoxicillin Allergy (Intermediate, Verified 03/11/25 15:42) Hives azithromycin (Zithromax) Allergy (Intermediate, Verified 03/11/25 15:42) Itching Cephalosporins (CEPHALOSPORINS) Allergy (Intermediate, Verified 03/11/25 15:42) HIVES erythromycin base (ERYTHROMYCIN BASE) Allergy (Intermediate, Verified 03/11/25 15:42) HIVES levofloxacin (From LEVAQUIN) Allergy (Intermediate, Verified 03/11/25 15:42) HIVES Penicillins (PENICILLINS) Allergy (Intermediate, Verified 03/11/25 15:42) HIVES Antibiotic Allergy (Intermediate, Uncoded 02/18/25 13:36) Itching Cefzil Allergy (Intermediate, Uncoded 02/18/25 13:36) Itching Medication List - Last Reconciled 03/11/25 by ALEYDA Kingsley albuterol sulfate 2.5 mg (3 mL) inhalation Q4-6H PRN aripiprazole (Abilify) 5 mg PO BEDTIME aripiprazole 5 mg PO BEDTIME diphenhydramine HCl (Sleep Aid (diphenhydramine)) 25 mg PO BEDTIME PRN escitalopram oxalate 10 mg PO DAILY gabapentin 300 mg PO TID 90 days guanfacine ER 2 mg PO DAILY hydroxyzine HCl 10 mg PO BID ibuprofen (Advil Migraine) 200 mg PO Q6H PRN lisdexamfetamine (Vyvanse) 50 mg PO QAM lisdexamfetamine (Vyvanse) 20 mg PO DAILY montelukast (Singulair) 10 mg PO BEDTIME naproxen 500 mg PO BID PRN norethindrone (contraceptive) 0.35 mg PO DAILY 84 days Ventolin HFA 90 mcg/actuation (albuterol sulfate) 2 puffs inhalation Q4-6H PRN 30 days NS HPI Comments Details: 25-yr-old female presents for f/u visit of seizure. Patient is accompanied by her mother. Pt denies any significant interval medical changes. However, patient states she was recently referred to an international broadcast music librarian, though she is not sure she wants to go, to see if she would be able to take the HPV vaccine due to her history of multiple antibiotic allergies. Previous right ankle x-ray was unremarkable. She states the right ankle swelling is better, but she does continue to have some discomfort. Patient was advised to start PT, however she has not been able to started yet, as she has been at her boyfriend's. Denies any interval seizure or lightheadedness episodes. Pt reports she has had 3 milder migraine attacks in the past- but was not sure if this was migraine as she could still look at her phone. 04/30/2024 previous HPI: Brain MRI was unremarkable, however there was some motion degradation. EEG results were considered mildly abnormal due to several bouts of bifrontal rhythmic moderate voltage theta that may suggest paroxysmal disorder. HST did not show AHI 0.5/hr, O2 maxine 87%. Upon review of the EEG, we advised pt to start Gabapentin. Pt reports she has had 3 convulsions since starting Gabapentin 2 months ago, which is less than the 1-2 convulsions per month prior. The convulsions are not as severe, her eyes will roll back, she will feel slightly SOB- almost panting, and she will pass out briefly. She has been compliant w/ Gabapentin. When she increased dose from 300mg qd to 300mg bid, she had restlessness in her legs, however this has since subsided. She is now on Gabapentin 300mg tid. She is tolerating this better. She has not had any menstrual migraine since starting Gabapentin. She is sleeping better w/ OTC sleep gummies. Not needing to take her prescription sleep meds. 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 [facility] Medical History Dermatofibrosarcoma protuberans of chest Mild intermittent asthma History of seizure Multiple allergies Constipation COVID-19 Surgical History History of excision of mass (02/23/22) History of excision of mass (01/26/22) History of endoscopy History of tonsillectomy and adenoidectomy Family History Mother Mental health disorder Father Substance use disorder Maternal Grandmother Skin cancer Maternal Grandfather Mental health disorder Social History Household Members: Family Housing: House Are you a primary landcare facilitator to a significant other at home: No Do you presently have visiting nurse or other home services: No Patient Tobacco Use Status: Never used Tobacco e-Cigarette/Vaping Use: Never Used Second Hand Smoke Exposure: Yes Substance Use Type: Marijuana service: No Current occupational status: unemployed and student Cognitive needs: No Hearing needs: No Vision needs: Yes Female Reproductive History Menstrual Age of Menarche: 14 Physical Exam Vital Signs: Last Vital Signs Pulse 98 03/11/25 15:40 BP 112/64 03/11/25 15:40 Pulse Ox 99 03/11/25 15:40 Oxygen Delivery Method Room Air 03/11/25 15:40 BMI result Body Mass Index 42.8 Const General: cooperative and no acute distress Orientation/consciousness: patient oriented x3 Resp Effort & Inspection: normal respiratory effort and able to speak in complete sentences Neuro Other: Decreased mild right ankle swelling without ecchymosis. General: patient oriented x3, gait normal and moves all extremities Cranial nerves: Yes CN's II-XII intact bilaterally Gait exam (Neuro): Normal gait present Motor exam (neuro): 5/5 motor strength present throughout Psych Appearance: grossly normal Mental Status: mental status grossly normal Speech and movement: Normal speech and movement present Affect: normal affect Attitude: cooperative Assessment & Plan Assessment & Plan (1) Migraine without aura: Code(s): G43.009 - Migraine without aura, not intractable, without status migrainosus Category: Medical Qualifiers: Status migrainosus presence: without status migrainosus Intractability: not intractable Qualified Code(s): G43.009 - Migraine without aura, not intractable, without status migrainosus (2) Convulsions: Code(s): R56.9 - Unspecified convulsions Category: Medical Qualifiers: Convulsion type: unspecified Qualified Code(s): R56.9 - Unspecified convulsions (3) Syncope: Code(s): R55 - Syncope and collapse Category: Medical Qualifiers: Syncope type: unspecified Qualified Code(s): R55 - Syncope and collapse (4) Right ankle sprain: Code(s): S93.401A - Sprain of unspecified ligament of right ankle, initial encounter Category: Medical Qualifiers: Encounter type: subsequent encounter Involved ligament of ankle: unspecified ligament Qualified Code(s): S93.401D - Sprain of unspecified ligament of right ankle, subsequent encounter Plan Previous workup: Brain MRI was unremarkable, however there was some motion degradation. EEG results were considered mildly abnormal due to several bouts of bifrontal rhythmic moderate voltage theta that may suggest paroxysmal disorder. HST did not show AHI 0.5/hr, O2 maxine 87%. For convulsions: Convulsions decreased significantly since starting Gabapentin, in setting of mildly abnormal EEG. This does increase likelihood that pt's episodes are epileptic. Continue Gabapentin 300mg po TID. Reviewed CBC and CMP, overall unremarkable. With the exception of elevated fasting glucose in 140s. Thus, we will check a hemoglobin A1c. For previous isolated syncopal episode: Isolated episode likely secondary to patient not having in or drink fluids in over 18 hours. Continue to optimize drinking and eating regularly, goal of at least 64 fluid oz per day. Drink a 12 oz of fluid bolus prior to showers and to take a warm rather than hot shower. For right ankle strain status post fall with negative right ankle/foot x-ray: Patient is again advised to undergo PT eval and treat For menstrual migraine: Patient advised to take naproxen as needed at onset of mild migraine. If ineffective, could consider trial of Ubrelvy or Nurtec prn. Will follow-up upon review of above and patient to follow-up in clinic in 6 months or sooner prn. Orders: Orders Hemoglobin A1c Today R73.9 - Hyperglycemia, unspecified Coding Level of Care Code Est Pt Level 4 (93069) Diagnoses Migraine without aura and without status migrainosus, not intractable G43.009 Status migrainosus presence: without status migrainosus Intractability: not intractable Convulsions, unspecified convulsion type R56.9 Convulsion type: unspecified Syncope, unspecified syncope type R55 Syncope type: unspecified Sprain of right ankle, unspecified ligament, subsequent encounter S93.401D Encounter type: subsequent encounter Involved ligament of ankle: unspecified ligament
[2025-03-11 15:40] VITALS: BP 112/64; PULSE 98; O2SAT 99; BMI 42.8
--- OUTSIDE RECORDS SUMMARY | 2025-03-11 16:23 | XMS_ITS | Clinical Summary ---
Author Organization [facility] Address [address] [place] [id number] Phone Care Team Providers Care Front Loader Residential Driver Name Role Phone Self-Referred, Patient Unavailable Unavailab Lisa Mata MD Primary Care Provider Francis Sarabia MD Unavailable Milan Valdez MD Unavailable [phone] Allergies Active Allergy Reactions Criticality Noted [...] topic Medical Devices Not on file Insurance [facility] [id number] [facility] Care Teams Front Loader Residential Driver Relationship Specialty Start Date End Date Lisa Kirkpatrick MD [address] [place] [address] PCP - General Internal Medicine 05/18/22 Self-Referred, Patient 05/18/22 Francis Sarabia MD [address] [place] [id number] Medical Oncology 06/14/22 Milan Valdez MD [address] [place] [address] General Surgery 06/14/22 Additional Source Comments The information contained in this document represents components of the legal health record. It is not the complete legal health record.[facility]
== END 2025-03-11 16:23 | disposition home or self-care (01) ==
LOC: HO.HSMS 15:33
PROVIDERS: PCP Internal Medicine; Visit Provider Nurse Practitioner Family
DX: G43.009 Migraine without aura, not intractable, without status migrainosus (principal); R56.9 Unspecified convulsions; R55 Syncope and collapse; S93.401D Sprain of unspecified ligament of right ankle, subsequent encounter
CPT/HCPCS: 99214

== ENCOUNTER → 2025-03-11 15:33 | Outpatient (BNVA) | payer OTHER, SELFPAY | PROVIDERS: PCP Internal Medicine; Visit Provider Nurse Practitioner Family | DX: G43.009 Migraine without aura, not intractable, without status migrainosus (principal); R56.9 Unspecified convulsions; R55 Syncope and collapse; S93.401D Sprain of unspecified ligament of right ankle, subsequent encounter | CPT/HCPCS: 99212 ==

== ENCOUNTER 2025-06-09 18:44 | Emergency (ER) | payer OTHER, SELFPAY ==
--- NOTE | ~2025-06-09 | XR_ITS ---
CLINICAL HISTORY: pain Two views of the chest. COMPARISON: XR chest dated 06/30/22 at 17:29 EST FINDINGS: Normal heart and mediastinal contours. No consolidation. No pleural effusion or pneumothorax. No acute fracture. IMPRESSION: 1. No consolidation. This document has been electronically signed by: Jones Barrera MD on 06/09/2025 20:14:39
--- NOTE | 2025-06-09 18:47 | ECG_ITS ---
Test Reason : CP Blood Pressure : */* mmHG Vent. Rate : 129 BPM Atrial Rate : 129 BPM P-R Int : 134 ms QRS Dur : 72 ms QT Int : 292 ms P-R-T Axes : 27 17 31 degrees QTcB Int : 427 ms Sinus tachycardia Otherwise normal ECG When compared with ECG of 06-May-2023 04:55, No significant change was found Referred By: Generic ED Physician Electronically Signed By: ROWENA PINK MD
[2025-06-09 19:16] VITALS: BP 137/59; PULSE 133; RESP 16; TEMP 36.8; O2SAT 97; BMI 44.2
--- NOTE | 2025-06-09 19:18 | ED.GENADULT ---
HPI - General Adult General Chief complaint: Chest Pain Stated complaint: chest pain Time Seen by Provider: 06/09/25 20:34 Related Data Home Medications ?Medication ?Instructions ?Recorded ?Confirmed montelukast 10 mg tablet 10 mg PO BEDTIME 10/28/21 03/11/25 (Singulair) diphenhydramine HCl 25 mg capsule 25 mg PO BEDTIME PRN 09/27/23 03/11/25 (Sleep Aid (diphenhydramine)) escitalopram oxalate 10 mg tablet 10 mg PO DAILY 09/27/23 03/11/25 guanfacine 2 mg tablet,extended 2 mg PO DAILY 09/27/23 03/11/25 release 24 hr hydroxyzine HCl 10 mg tablet 10 mg PO BID 09/27/23 03/11/25 ibuprofen 200 mg capsule (Advil 200 mg PO Q6H PRN 09/27/23 03/11/25 Migraine) aripiprazole 5 mg tablet (Abilify) 5 mg PO BEDTIME 02/25/24 03/11/25 aripiprazole 5 mg tablet 5 mg PO BEDTIME 04/09/24 03/11/25 lisdexamfetamine 20 mg capsule 20 mg PO DAILY 06/05/24 03/11/25 (Vyvanse) lisdexamfetamine 50 mg capsule 50 mg PO QAM 06/05/24 03/11/25 (Vyvanse) Previous Rx's ?Medication ?Instructions ?Recorded albuterol sulfate 2.5 mg/3 mL 2.5 mg (3 mL) inhalation Q4-6H PRN 09/24/21 (0.083 %) solution for nebulization shortness of breath or wheezing #75 mL Ventolin HFA 90 mcg/actuation 2 puff inhalation Q4-6H PRN 09/28/23 aerosol inhaler (albuterol sulfate) shortness of breath or wheezing 30 days #18 grams naproxen 500 mg tablet 500 mg PO BID PRN pain #14 tabs 12/19/24 gabapentin 300 mg capsule 300 mg PO TID 90 days #270 caps 01/16/25 norethindrone (contraceptive) 0.35 0.35 mg PO DAILY 30 days #30 tabs 05/15/25 mg tablet Allergies Allergy/AdvReac Type Severity Reaction Status Date / Time amoxicillin Allergy Intermediate Hives Verified 06/09/25 19:20 azithromycin (Zithromax) Allergy Intermediate Itching Verified 06/09/25 19:20 Cephalosporins Allergy Intermediate HIVES Verified 06/09/25 19:20 (CEPHALOSPORINS) erythromycin base Allergy Intermediate HIVES Verified 06/09/25 19:20 (ERYTHROMYCIN BASE) levofloxacin (From LEVAQUIN) Allergy Intermediate HIVES Verified 06/09/25 19:20 Penicillins (PENICILLINS) Allergy Intermediate HIVES Verified 06/09/25 19:20 Antibiotic Allergy Intermediate Itching Uncoded 06/09/25 19:20 Cefzil Allergy Intermediate Itching Uncoded 06/09/25 19:20 PMFSH Past Medical History Medical History Dermatofibrosarcoma protuberans of chest Mild intermittent asthma History of seizure Multiple allergies Constipation COVID-19 Surgical History History of excision of mass (02/23/22) History of excision of mass (01/26/22) History of endoscopy History of tonsillectomy and adenoidectomy Family History Family History Mother Mental health disorder Father Substance use disorder Maternal Grandmother Skin cancer Maternal Grandfather Mental health disorder Social History Social History Household Members: Family Housing: House Are you a primary childcare provider to a significant other at home: No Do you presently have visiting nurse or other home services: No Patient Tobacco Use Status: Never used Tobacco Smoked in Last 30 Days: No e-Cigarette/Vaping Use: Never Used Second Hand Smoke Exposure: Yes Use of substances other than those prescribed or required for medical reasons: Yes Substance Use Type: Marijuana Substance Use Frequency: Monthly Last Used Substance: Hours (ago) Advance Directives: No Advance Directives Information Provided: Yes Do you have a plan to hurt others: No Plan Patient : No service: No Current occupational status: unemployed and student Cognitive needs: No Hearing needs: No Vision needs: Yes Physical Exam ED Vital Signs: Vital Signs - 24 hr 06/09/25 19:16 06/09/25 20:29 06/09/25 22:21 Temperature 98.2 F 97.8 F 98.5 F Pulse Rate 133 H 121 H 86 Respiratory Rate 16 12 16 Blood Pressure 137/59 L 95/61 111/64 Pulse Oximetry 97 97 97 Oxygen Delivery Method Room Air Room Air Room Air BMI result Body Mass Index 44.2 Course Course Course Narrative: RME, this is a rapid medical exam performed by Americo Barbosa please refer to primary provider for complete H&P- 25-year-old female presents of chest pain. She was doing some strenuous exercises may a former muscle. Plan for cardiac workup with EKG, labs, chest x-ray. Medical Decision Making Lab Data 06/09/25 19:50 06/09/25 19:50 Labs: Lab Results 06/09/25 06/09/25 Range/Units 19:50 21:28 WBC 9.8 (4.8-10.8) X10*3/uL RBC 4.34 (4.20-5.50) X10*6/uL Hgb 13.1 (12.0-16.0) g/dl Hct 38.8 (37.0-47.0) % MCV 89.4 (80.0-98.0) fL MCH 30.2 (27.0-33.0) pg MCHC 33.8 (31.0-35.0) g/dl RDW 12.6 (11.0-16.0) % Plt Count 314 (160-400) X10*3/uL MPV 10.4 (9.4-12.3) fL Immature Gran % (Auto) 0.3 (0.0-0.4) % Neut % (Auto) 63.2 (45-73) % Lymph % (Auto) 25.7 (20-40) % Cost[place] % (Auto) 5.6 (2-11) % Eos % (Auto) 4.7 H (0-4) % Baso % (Auto) 0.5 (0-2) % Lymph # (Auto) 2.5 (1.2-4.9) X10*3/uL [place] # (Auto) 0.6 (0.1-1.2) X10*3/uL Eos # (Auto) 0.5 H (0.0-0.4) X10*3/uL Baso # (Auto) 0.1 (0.0-0.2) X10*3/uL Abs Immat Gran (auto) 0.03 (0.00-0.03) X10*3/uL Absolute Neuts (auto) 6.2 (2.0-8.3) x10*3/uL Absolute Nucleated RBC 0.000 (0.0-0.012) X10*3/uL Nucleated RBC % (auto) 0.0 (0.0-0.2) /100WBC D-Dimer High Sensitivty < 150 NG/ML Sodium 141 (135-145) mmol/L Potassium 3.9 (3.3-5.1) mmol/L Chloride 108 (96-108) mmol/L Carbon Dioxide 22 (22-29) mmol/L Anion Gap 15 (12-20) BUN 12 (9-16) mg/dL Creatinine 0.75 (0.5-1.4) mg/dL Estim Creat Clear Calc 137.4 Estimated GFR > 60 Random Glucose 155 H (60-115) mg/dL Calcium 9.1 (8.4-10.2) mg/dL Total Bilirubin 0.1 (0.0-1.0) mg/dL AST 19 (5-31) U/L ALT 28 (0-31) U/L Alkaline Phosphatase 65 (39-117) U/L Troponin I High Sens < 2.7 < 2.7 (<3.5-17.0) ng/L Total Protein 6.8 (6.5-8.0) g/dL Albumin 4.4 (3.5-5.0) g/dL Lipase 18 (8-78) U/L Beta HCG, Quant < 2 mIU/mL Discharge Plan Discharge Clinical Impression: Chest pain Patient Disposition: Home, Self-Care Instructions: Chest Pain (ED) Prescriptions: No Action albuterol sulfate 2.5 mg /3 mL (0.083 %) solution for nebulization 2.5 mg inhalation Q4-6H PRN (Reason: shortness of breath or wheezing) Qty: 75 0RF albuterol sulfate [Ventolin HFA] 90 mcg/actuation HFA aerosol inhaler 2 puff inhalation Q4-6H PRN (Reason: shortness of breath or wheezing) 30 Days Qty: 18 1RF aripiprazole [Abilify] 5 mg tablet 5 mg PO BEDTIME naproxen 500 mg tablet 500 mg PO BID PRN (Reason: pain) Qty: 14 0RF escitalopram oxalate 10 mg tablet 10 mg PO DAILY guanfacine 2 mg tablet extended release 24 hr 2 mg PO DAILY hydroxyzine HCl 10 mg tablet 10 mg PO BID ibuprofen [Advil Migraine] 200 mg capsule 200 mg PO Q6H PRN diphenhydramine HCl [Sleep Aid (diphenhydramine)] 25 mg capsule 25 mg PO BEDTIME PRN montelukast [Singulair] 10 mg tablet 10 mg PO BEDTIME aripiprazole 5 mg tablet 5 mg PO BEDTIME lisdexamfetamine [Vyvanse] 50 mg capsule 50 mg PO QAM lisdexamfetamine [Vyvanse] 20 mg capsule 20 mg PO DAILY gabapentin 300 mg capsule 300 mg PO TID 90 Days Qty: 270 1RF norethindrone (contraceptive) 0.35 mg tablet 0.35 mg PO DAILY 30 Days Qty: 30 0RF Referrals: Lisa Kirkpatrick MD [Primary Care Provider, Internal Medicine] - 3 days Print Language: Polish
[2025-06-09 19:54] LABS: MANUAL DIFF FLAG NO
[2025-06-09 20:08] LABS: Hematocrit 38.8 % (37.0-47.0); Hemoglobin 13.1 g/dl (12.0-16.0); Imm Gran Abs Auto 0.03 X10*3/uL (0.00-0.03); Imm Gran Pct Auto 0.3 % (0.0-0.4); Lymphocytes Absolute Auto 2.5 X10*3/uL (1.2-4.9); Mean Corpuscular HGB Conc 33.8 g/dl (31.0-35.0); Mean Corpuscular Hemoglobin 30.2 pg (27.0-33.0); Mean Corpuscular Volume 89.4 fL (80.0-98.0); NRBC Abs Auto 0.000 X10*3/uL (0.0-0.012); NRBC Pct Auto 0.0 /100WBC (0.0-0.2); Platelet Count 314 X10*3/uL (160-400); Red Blood Count 4.34 X10*6/uL (4.20-5.50); White Blood Count 9.8 X10*3/uL (4.8-10.8)
[2025-06-09 20:22] LABS: Alanine Aminotransferase 28 U/L (0-31); Albumin Level 4.4 g/dL (3.5-5.0); Alkaline Phosphatase 65 U/L (39-117); Anion Gap 15 (12-20); Aspartate Amino Transferase 19 U/L (5-31); Blood Urea Nitrogen 12 mg/dL (9-16); Calcium 9.1 mg/dL (8.4-10.2); Carbon Dioxide 22 mmol/L (22-29); Chloride 108 mmol/L (96-108); Creatinine Clr Calc Pharmacy 137.4; Estimated Glomerular Filt Rate > 60; Lipase 18 U/L (8-78); Potassium 3.9 mmol/L (3.3-5.1); Sodium 141 mmol/L (135-145); Total Protein 6.8 g/dL (6.5-8.0)
[2025-06-09 20:29] VITALS: BP 95/61; PULSE 121; RESP 12; TEMP 36.6; O2SAT 97
[2025-06-09 20:39] LABS: Troponin-I High Sensitivity < 2.7 ng/L (<3.5-17.0)
[2025-06-09 20:54] VITALS: PULSE 114
--- OUTSIDE RECORDS SUMMARY | 2025-06-09 21:14 | XMS_ITS | Encounter Summary ---
[place] [address] Care Team Providers Care Blueprint Processor Name Role Phone Jenise Gresham Primary Care Provider [phone] Reason for Visit * Reason Comments Medication Refill Encounter Details Date Type Department Care Team (Late st Contact Info) Description 10/18/2021 Refill [facility] Gastroenterology[address] [phone] Violeta De La Cruz MD [address] [place] [address] Gastroesophageal reflux disease, unspecified whether esophagitis present [...] Primary documented in this encounter Care Teams Blueprint Processor Relationship Specialty Start Date End Date Jenise Gresham PA [address] [place] [address] [place] [address] PCP - General Physician Service Representative 03/11/21 documented as of this encounter
--- OUTSIDE RECORDS SUMMARY | 2025-06-09 21:14 | XMS_ITS | Encounter Summary ---
[place] [address] Care Team Providers Care Squad Boss Name Role Phone Jenise Gresham Primary Care Provider [phone] Reason for Visit * Reason Comments Medication Refill Encounter Details Date Type Department Care Team ([facility] st Contact Info) Description 07/07/2022 Refill [facility] Gastroenterology[address] [phone] Violeta De La Cruz MD [address] [place] [address] Gastroesophageal reflux disease, unspecified whether esophagitis present [...] present documented in this encounter Care Teams Squad Boss Relationship Specialty Start Date End Date Jenise Gresham PA [address] [place] [address] [place] [address] PCP - General Physician Poundmaster 03/11/21 documented as of this encounter
--- OUTSIDE RECORDS SUMMARY | 2025-06-09 21:14 | XMS_ITS | Encounter Summary ---
Author Organization [address] [address] Care Team Providers Care Mold Chipper Name Role Phone Jenise Gresham Primary Care Provider Reason for Visit * Reason Comments Medication Refill Encounter Details Date Type Department Care Team ([facility] st Contact Info) Description 02/22/2022 Refill [facility] Gastroenterology[address] [phone] Violeta De La Cruz MD [address] [place] [phone] Gastroesophageal reflux disease, unspecified whether esophagitis present [...] present documented in this encounter Care Teams Mold Chipper Relationship Specialty Start Date End Date Jenise Gresham PA [address] [place] [address] [place] [address] PCP - General Physician Poultry Cutter 03/11/21 documented as of this encounter
--- OUTSIDE RECORDS SUMMARY | 2025-06-09 21:14 | XMS_ITS | Encounter Summary ---
[place] [address] Care Team Providers Care Insurance Underwriting Assistant Name Role Phone Jenise Gresham Primary Care Provider [phone] Reason for Visit * Reason Comments Medication Refill Encounter Details Date Type Department Care Team (Late st Contact Info) Description 11/12/2021 Refill [facility] Gastroenterology[address] [phone] Violeta De La Cruz MD [address] [place] [phone] Gastroesophageal reflux disease, unspecified whether esophagitis present [...] present documented in this encounter Care Teams Insurance Underwriting Assistant Relationship Specialty Start Date End Date Jenise Gresham PA [address] [place] [address] [place] [address] PCP - General Physician Steam Clean Machine Operator 03/11/21 documented as of this encounter
--- OUTSIDE RECORDS SUMMARY | 2025-06-09 21:14 | XMS_ITS | Encounter Summary ---
Author Organization [address] [address] Care Team Providers Care Reheater Name Role Phone Jenise Gresham Primary Care Provider [phone] Reason for Visit * Reason Comments Medication Refill Encounter Details Date Type Department Care Team ([facility] st Contact Info) Description 03/25/2022 Refill [facility] Gastroenterology[address] [phone] Violeta De La Cruz MD [address] [place] [phone] Gastroesophageal reflux disease, unspecified whether esophagitis present [...] present documented in this encounter Care Teams Reheater Relationship Specialty Start Date End Date Jenise Gresham PA [address] [place] [address] [place] [address] PCP - General Physician Baby Doctor 03/11/21 documented as of this encounter
--- OUTSIDE RECORDS SUMMARY | 2025-06-09 21:14 | XMS_ITS | Clinical Summary ---
Author Organization [facility] Address [address] [place] [id number] Phone Care Team Providers Care Uncrater Name Role Phone Self-Referred, Patient Unavailable Unavailab Lisa Mata MD Primary Care Provider Francis Sarabia MD Unavailable Milan Valdez MD Unavailable [phone] Allergies Active Allergy Reactions Criticality Noted [...] 2 - PCV) 2021 PAP SMEAR 2023 INFLUENZA VACCINE (#1) 2025 COVID-19 VACCINE (3 - 2024-2 6 season) 2025 07/22/2021, 07/01/2021 MENINGOCOCCAL VACCINES (ACWY) Completed 11/06/2018 HEPATITIS A VACCINES Aged Out No long er eligible based on patient's age to complete this topic HIB VACCINES Aged Out No longer eligi ble based on patient's age to complete this topic Medical Devices Not on file Insurance [facility] [place] Care Teams Uncrater Relationship Specialty Start Date End Date Lisa Kirkpatrick MD [address] [facility] [place] [id number] PCP - General Internal Medicine 05/18/22 Self-Referred, Patient 05/18/22 Francis Sarabia MD [address] [place] [id number] Medical Oncology 06/14/22 Milan Valdez MD [address] [place] [id number] General Surgery 06/14/22 Additional Source Comments The information contained in this document represents components of the legal health record. It is not the complete legal health record.[facility]
--- OUTSIDE RECORDS SUMMARY | 2025-06-09 21:14 | XMS_ITS | Encounter Summary ---
Author Organization [address] [address] Care Team Providers Care Manufacturing Weaver Name Role Phone Jenise Gresham Primary Care Provider Reason for Visit * Reason Comments Medication Refill Encounter Details Date Type Department Care Team (Late st Contact Info) Description 01/19/2022 Refill [facility] Gastroenterology[address] [id number] Violeta De La Cruz MD [address] [place] [id number] Gastroesophageal reflux disease, unspecified whether esophagitis present [...] present documented in this encounter Care Teams Manufacturing Weaver Relationship Specialty Start Date End Date Jenise Gresham PA [address] [place] [address] [place] [address] PCP - General Physician Hospitality Workers 03/11/21 documented as of this encounter
--- OUTSIDE RECORDS SUMMARY | 2025-06-09 21:14 | XMS_ITS | Clinical Summary ---
Author Organization [facility] Address [address] [place] [id number] Care Team Providers Care [employer] Name Role Phone Jenise Gresham Primary Care [...] so, obtain the minor's consent prior to disclosure.[facility] Allergies Active Allergy Reactions Criticality Noted [...] (04/13/2021): Added automatically from request for surgery [id number] Family History Medical History Relation Name Comments [...] 100 10/04/2021 8:40 AM EST Temperature 36.7 C (98.1 F) 05/19/2021 1:01 PM EDT Respiratory Rate 20 05/19/2021 1:01 PM EDT [...] SCREENING 2015 COVID-19 Vaccine (2023-2 5 season) 2025 INFLUENZA (#1) 2025 NIRSEVIMAB VACCINES UNDER 8 MONTHS Aged Out No longer eligible based on patient's age to complete this topic Insurance [facility] [employer] Care Teams [employer] Relationship Specialty Start Date End Date Jenise Gresham PA [address] [place] [address] [place] [address] PCP - General Physician [employer] Administrator 03/11/21
--- NOTE | 2025-06-09 21:23 | ED.CHESTPAIN ---
HPI - Chest Pain General Chief Complaint: Chest Pain Stated Complaint: chest pain Time Seen by Provider: 06/09/25 20:34 History of Present Illness HPI narrative: Patient is a 25-year-old female presents today with having chest pain that is mid chest. Moving to the left side. It is worse with movement. Worse with deep breath. 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 There has been no residual currently not on chemo. No leg swelling. No history of blood clots. No travel history. Not on control. Patient is from home. Complaining of pain worse with movement worse with deep breath. Sharp. Related Data Home Medications ?Medication ?Instructions ?Recorded ?Confirmed montelukast 10 mg tablet 10 mg PO BEDTIME 10/28/21 03/11/25 (Singulair) diphenhydramine HCl 25 mg capsule 25 mg PO BEDTIME PRN 09/27/23 03/11/25 (Sleep Aid (diphenhydramine)) escitalopram oxalate 10 mg tablet 10 mg PO DAILY 09/27/23 03/11/25 guanfacine 2 mg tablet,extended 2 mg PO DAILY 09/27/23 03/11/25 release 24 hr hydroxyzine HCl 10 mg tablet 10 mg PO BID 09/27/23 03/11/25 ibuprofen 200 mg capsule (Advil 200 mg PO Q6H PRN 09/27/23 03/11/25 Migraine) aripiprazole 5 mg tablet (Abilify) 5 mg PO BEDTIME 02/25/24 03/11/25 aripiprazole 5 mg tablet 5 mg PO BEDTIME 04/09/24 03/11/25 lisdexamfetamine 20 mg capsule 20 mg PO DAILY 06/05/24 03/11/25 (Vyvanse) lisdexamfetamine 50 mg capsule 50 mg PO QAM 06/05/24 03/11/25 (Vyvanse) Previous Rx's ?Medication ?Instructions ?Recorded albuterol sulfate 2.5 mg/3 mL 2.5 mg (3 mL) inhalation Q4-6H PRN 09/24/21 (0.083 %) solution for nebulization shortness of breath or wheezing #75 mL Ventolin HFA 90 mcg/actuation 2 puff inhalation Q4-6H PRN 09/28/23 aerosol inhaler (albuterol sulfate) shortness of breath or wheezing 30 days #18 grams naproxen 500 mg tablet 500 mg PO BID PRN pain #14 tabs 12/19/24 gabapentin 300 mg capsule 300 mg PO TID 90 days #270 caps 01/16/25 norethindrone (contraceptive) 0.35 0.35 mg PO DAILY 30 days #30 tabs 05/15/25 mg tablet Allergies Allergy/AdvReac Type Severity Reaction Status Date / Time amoxicillin Allergy Intermediate Hives Verified 06/09/25 19:20 azithromycin (Zithromax) Allergy Intermediate Itching Verified 06/09/25 19:20 Cephalosporins Allergy Intermediate HIVES Verified 06/09/25 19:20 (CEPHALOSPORINS) erythromycin base Allergy Intermediate HIVES Verified 06/09/25 19:20 (ERYTHROMYCIN BASE) levofloxacin (From LEVAQUIN) Allergy Intermediate HIVES Verified 06/09/25 19:20 Penicillins (PENICILLINS) Allergy Intermediate HIVES Verified 06/09/25 19:20 Antibiotic Allergy Intermediate Itching Uncoded 06/09/25 19:20 Cefzil Allergy Intermediate Itching Uncoded 06/09/25 19:20 Review of Systems Review of Systems: Positive chest pain Yes all other systems are reviewed and are negative PMFSH Past Medical History Attestation statement: The following information was validated with the patient. Medical History Dermatofibrosarcoma protuberans of chest Mild intermittent asthma History of seizure Multiple allergies Constipation COVID-19 Surgical History History of excision of mass (02/23/22) History of excision of mass (01/26/22) History of endoscopy History of tonsillectomy and adenoidectomy Family History Family History Mother Mental health disorder Father Substance use disorder Maternal Grandmother Skin cancer Maternal Grandfather Mental health disorder Social History Social History Household Members: Family Housing: House Are you a primary primary health care nurse to a significant other at home: No Do you presently have visiting nurse or other home services: No Patient Tobacco Use Status: Never used Tobacco Smoked in Last 30 Days: No e-Cigarette/Vaping Use: Never Used Second Hand Smoke Exposure: Yes Use of substances other than those prescribed or required for medical reasons: Yes Substance Use Type: Marijuana Substance Use Frequency: Monthly Last Used Substance: Hours (ago) Advance Directives: No Advance Directives Information Provided: Yes Do you have a plan to hurt others: No Plan Patient : No service: No Current occupational status: unemployed and student Cognitive needs: No Hearing needs: No Vision needs: Yes Physical Exam Exam: Exam: Appearance: Alert. Oriented X3. No acute distress. Eyes: Pupils equal, round and reactive to light. ENT: Pharynx normal. Neck: Normal inspection. Neck supple. No lymph nodes noted. No crepitus CVS: Normal heart rate and rhythm. Pulses normal. Normal S1 and S2 Respiratory: No respiratory distress. Breath sounds normal. No Wheezing. No rales Abdomen: Soft and nontender. No rigidity. No distention. good BS x4 Skin: Skin warm and dry. Normal skin color. Normal skin turgor. Extremities: No lower extremity edema. Neurovascular intact to all extremities. No Lacerations. No Rash Neuro: Oriented X 3. No motor deficit. No sensory deficit. Moving all extermities. No slurred speech Vital Signs: Vital Signs: Last Vital Signs Temp 98.5 F 06/09/25 22:21 Pulse 86 06/09/25 22:21 Resp 16 06/09/25 22:21 BP 111/64 06/09/25 22:21 Pulse Ox 97 06/09/25 22:21 O2 Del Method Room Air 06/09/25 22:21 BMI result Body Mass Index 44.2 Medical Decision Making Medical Decision Making MDM Narrative: Patient has a history of sarcoma. Chest pain with inspiration for the past few hours. Been having fairly constant pain all day. Two sets of cardiac enzymes are negative. Patient's chest x-ray by my interpretation is grossly negative no pneumonia no pneumothorax. Because of the history of sarcoma. A D-dimer was done. Patient has no leg swelling not on control. Claims that the sarcoma was resected currently not on chemo. Patient's D-dimer was negative. In the setting of low risk unlikely to have PE. Patient is electrolytes are unremarkable. Well-appearing. Will discharge patient home. Differential Diagnosis Differential Diagnoses: The differential diagnosis associated with the presentation includes Atypical chest pain, ACS, PE, pneumonia, pneumothorax Admission/Observation Consideration of admission/observation: Escalation of care including admission/observation considered Lab Data MDM Lab Attestation statement: I reviewed the patient's lab results. 06/09/25 19:50 06/09/25 19:50 Labs: Lab Results 06/09/25 06/09/25 Range/Units 19:50 21:28 WBC 9.8 (4.8-10.8) X10*3/uL RBC 4.34 (4.20-5.50) X10*6/uL Hgb 13.1 (12.0-16.0) g/dl Hct 38.8 (37.0-47.0) % MCV 89.4 (80.0-98.0) fL MCH 30.2 (27.0-33.0) pg MCHC 33.8 (31.0-35.0) g/dl RDW 12.6 (11.0-16.0) % Plt Count 314 (160-400) X10*3/uL MPV 10.4 (9.4-12.3) fL Immature Gran % (Auto) 0.3 (0.0-0.4) % Neut % (Auto) 63.2 (45-73) % Lymph % (Auto) 25.7 (20-40) % [place] % (Auto) 5.6 (2-11) % Eos % (Auto) 4.7 H (0-4) % Baso % (Auto) 0.5 (0-2) % Lymph # (Auto) 2.5 (1.2-4.9) X10*3/uL [place] # (Auto) 0.6 (0.1-1.2) X10*3/uL Eos # (Auto) 0.5 H (0.0-0.4) X10*3/uL Baso # (Auto) 0.1 (0.0-0.2) X10*3/uL Abs Immat Gran (auto) 0.03 (0.00-0.03) X10*3/uL Absolute Neuts (auto) 6.2 (2.0-8.3) x10*3/uL Absolute Nucleated RBC 0.000 (0.0-0.012) X10*3/uL Nucleated RBC % (auto) 0.0 (0.0-0.2) /100WBC D-Dimer High Sensitivty < 150 NG/ML Sodium 141 (135-145) mmol/L Potassium 3.9 (3.3-5.1) mmol/L Chloride 108 (96-108) mmol/L Carbon Dioxide 22 (22-29) mmol/L Anion Gap 15 (12-20) BUN 12 (9-16) mg/dL Creatinine 0.75 (0.5-1.4) mg/dL Estim Creat Clear Calc 137.4 Estimated GFR > 60 Random Glucose 155 H (60-115) mg/dL Calcium 9.1 (8.4-10.2) mg/dL Total Bilirubin 0.1 (0.0-1.0) mg/dL AST 19 (5-31) U/L ALT 28 (0-31) U/L Alkaline Phosphatase 65 (39-117) U/L Troponin I High Sens < 2.7 < 2.7 (<3.5-17.0) ng/L Total Protein 6.8 (6.5-8.0) g/dL Albumin 4.4 (3.5-5.0) g/dL Lipase 18 (8-78) U/L Beta HCG, Quant < 2 mIU/mL Independent Interpretation I performed an independent interpretation of an: EKG (Sinus heart rate is 120 CO QRS QTC normal no acute ST segment elevation) and Plain X-Ray (Chest x-ray is negative for pneumonia no pneumothorax) Radiology Impression Discussion of test interpretation with radiology: I have reviewed the radiologist's reading. Independent Historian Clinical information obtained from an independent historian. History obtained from or confirmed by: Parent External Record Review External record reviewed: Office record Chronic Conditions Previous history of sarcoma Social Determinants Patient?s care significantly limited by Social Determinants of Health including: Problems related to primary support group Discharge Plan Discharge Clinical Impression: Chest pain Patient Disposition: Home, Self-Care Instructions: Chest Pain (ED) Prescriptions: No Action albuterol sulfate 2.5 mg /3 mL (0.083 %) solution for nebulization 2.5 mg inhalation Q4-6H PRN (Reason: shortness of breath or wheezing) Qty: 75 0RF albuterol sulfate [Ventolin HFA] 90 mcg/actuation HFA aerosol inhaler 2 puff inhalation Q4-6H PRN (Reason: shortness of breath or wheezing) 30 Days Qty: 18 1RF aripiprazole [Abilify] 5 mg tablet 5 mg PO BEDTIME naproxen 500 mg tablet 500 mg PO BID PRN (Reason: pain) Qty: 14 0RF escitalopram oxalate 10 mg tablet 10 mg PO DAILY guanfacine 2 mg tablet extended release 24 hr 2 mg PO DAILY hydroxyzine HCl 10 mg tablet 10 mg PO BID ibuprofen [Advil Migraine] 200 mg capsule 200 mg PO Q6H PRN diphenhydramine HCl [Sleep Aid (diphenhydramine)] 25 mg capsule 25 mg PO BEDTIME PRN montelukast [Singulair] 10 mg tablet 10 mg PO BEDTIME aripiprazole 5 mg tablet 5 mg PO BEDTIME lisdexamfetamine [Vyvanse] 50 mg capsule 50 mg PO QAM lisdexamfetamine [Vyvanse] 20 mg capsule 20 mg PO DAILY gabapentin 300 mg capsule 300 mg PO TID 90 Days Qty: 270 1RF norethindrone (contraceptive) 0.35 mg tablet 0.35 mg PO DAILY 30 Days Qty: 30 0RF Referrals: Lisa Kirkpatrick MD [Primary Care Provider, Internal Medicine] - 3 days Print Language: Welsh
[2025-06-09 21:49] LABS: D Dimer High Sensitivity < 150 NG/ML
[2025-06-09 22:02] LABS: Troponin-I High Sensitivity < 2.7 ng/L (<3.5-17.0)
[2025-06-09 22:21] VITALS: BP 111/64; PULSE 86; RESP 16; TEMP 36.9; O2SAT 97
[2025-06-09 22:50] VITALS: BP 111/64; PULSE 86; RESP 16; TEMP 36.9; O2SAT 97
== END 2025-06-09 22:51 | disposition home or self-care (01) ==
PROVIDERS: Physician Assistant; Emergency Provider Emergency Medicine Emergency Medical Services; PCP Internal Medicine
DX: R07.89 Other chest pain (principal); R00.0 Tachycardia, unspecified; Z79.899 Other long term (current) drug therapy
CPT/HCPCS: 36415; 71046; 80053; 83690; 84484; 84702; 85025; 85379; 93005; 99283; 99285

== ENCOUNTER → 2025-06-09 18:47 | Outpatient (BNV) | payer OTHER, SELFPAY | PROVIDERS: Emergency Provider Emergency Medicine Emergency Medical Services; PCP Internal Medicine; Visit Provider Internal Medicine Cardiovascular Disease | DX: R00.0 Tachycardia, unspecified (principal) | CPT/HCPCS: 93010 ==

== ENCOUNTER → 2025-06-09 19:19 | Outpatient (BNV) | payer OTHER, SELFPAY | PROVIDERS: Emergency Provider Emergency Medicine Emergency Medical Services; PCP Internal Medicine; Visit Provider Radiology Diagnostic Radiology | DX: R07.9 Chest pain, unspecified (principal) | CPT/HCPCS: 71046 ==

== ENCOUNTER → 2025-06-16 14:02 | Outpatient (BNV) | payer OTHER, SELFPAY | PROVIDERS: PCP Internal Medicine; Visit Provider Internal Medicine Medical Oncology | DX: C44.599 Other specified malignant neoplasm of skin of other part of trunk (principal) | CPT/HCPCS: 99204 ==

== ENCOUNTER 2025-06-24 15:59 | Outpatient (AMB) | payer OTHER, SELFPAY ==
[2025-06-24 16:02] VITALS: BP 110/80; PULSE 90; RESP 16; TEMP 36.4; O2SAT 96; BMI 45.2
--- NOTE | 2025-06-24 16:02 | MHC.PC.OV ---
Vital Signs 06/24/25 16:02 Height 5 ft 2 in Weight 247 lb BMI 45.2 BP 110/80 Blood Pressure Location Lt brachial Position Sitting Respiration 16 Pulse 90 Pulse Source Pulse Oximeter Temp 97.6 F Temp Source Oral Pulse Oximetry (%) 96 Oxygen Delivery Method Room Air Intake Visit Reasons: PE Intake Note: Pt is here today for her PE Corporate Statistical Financial Analyst Required: No Allergies amoxicillin Allergy (Intermediate, Verified 06/24/25 16:19) Hives azithromycin (Zithromax) Allergy (Intermediate, Verified 06/24/25 16:19) Itching Cephalosporins (CEPHALOSPORINS) Allergy (Intermediate, Verified 06/24/25 16:19) HIVES erythromycin base (ERYTHROMYCIN BASE) Allergy (Intermediate, Verified 06/24/25 16:19) HIVES levofloxacin (From LEVAQUIN) Allergy (Intermediate, Verified 06/24/25 16:19) HIVES Penicillins (PENICILLINS) Allergy (Intermediate, Verified 06/24/25 16:19) HIVES Antibiotic Allergy (Intermediate, Uncoded 06/24/25 16:19) Itching Cefzil Allergy (Intermediate, Uncoded 06/24/25 16:19) Itching Medication List - Last Reconciled 06/24/25 by Lisa Kirkpatrick MD albuterol sulfate 2.5 mg (3 mL) inhalation Q4-6H PRN aripiprazole 5 mg PO BEDTIME diphenhydramine HCl (Sleep Aid (diphenhydramine)) 25 mg PO BEDTIME PRN escitalopram oxalate 10 mg PO DAILY fluticasone furoate 200 mcg/actuation 1 inh inhalation DAILY gabapentin 300 mg PO TID 90 days hydroxyzine HCl 10 mg PO BID lisdexamfetamine (Vyvanse) 50 mg PO QAM lisdexamfetamine (Vyvanse) 20 mg PO DAILY naproxen 500 mg PO BID PRN norethindrone (contraceptive) 0.35 mg PO DAILY 30 days Ventolin HFA 90 mcg/actuation (albuterol sulfate) 2 puffs inhalation Q4-6H PRN 30 days NS Tobacco use date assessed: 06/24/25 Dental Screening Dental Screen Date: 06/24/25 Did you have a dental visit in the last 12 months?: Yes Did you have a dental problem in the last 6 months where you did not have access to dental care?: No Was dental information given to patient?: Patient has dentist HPI [facility] HPI Details 25 year old lady , here for her physical exam. She has history of seizure disorder, currently being followed at [facility] neurology [facility], and last seizure episode was approximately a year ago . She has multiple environmental in drug allergies, has mild persistent asthma, was referred to Allergy immunology clinic a year ago but did did not go to her appointment., She has ADHD and depression currently being followed by Josefina Moore and is on Vyvanse, escitalopram, aripiprazole and hydroxyzine, which she takes as needed for acute anxiety attacks. She had surgical excision of Dermatofibrosarcoma protuberans with positive margins 01/26/22, currently followed by Dr. Sarabia. [facility] Medical History Morbid obesity Dermatofibrosarcoma protuberans of chest Mild intermittent asthma History of seizure Multiple allergies Constipation COVID-19 Surgical History History of excision of mass (02/23/22) History of excision of mass (01/26/22) History of endoscopy History of tonsillectomy and adenoidectomy Family History Mother Mental health disorder Father Substance use disorder Maternal Grandmother Skin cancer Maternal Grandfather Mental health disorder Social History Household Members: Family Housing: House Are you a primary medicare insurance specialist to a significant other at home: No Do you presently have visiting nurse or other home services: No Patient Tobacco Use Status: Never used Tobacco e-Cigarette/Vaping Use: Never Used Second Hand Smoke Exposure: Yes Substance Use Type: Marijuana service: No Current occupational status: unemployed and student Cognitive needs: No Hearing needs: No Vision needs: Yes Female Reproductive History Menstrual Age of Menarche: 14 Duration of menses: 3-5 days control method: condoms Questionnaire PHQ-9 Over the last 2 weeks, how often have you been bothered by any of the following problems? 1. Little interest or pleasure in doing things: not at all 2. Feeling down, depressed, or hopeless: not at all 3. Trouble falling or staying asleep, or sleeping too much: several days 4. Feeling tired or having little energy: several days 5. Poor appetite or overeating: several days 6. Feeling bad about yourself - or that you are a failure or have let yourself or your family down: not at all 7. Trouble concentrating on things, such as reading the newspaper or watching television: not at all 8. Moving or speaking so slowly that other people could have noticed. Or the opposite - being so fidgety or restless that you have been moving around a lot more than usual: not at all 9. Thoughts that you would be better off or of hurting yourself in some way: not at all Total score: 3 Depression Screening Interpretation: Positive (Currently on medication, followed by Josefina Moore) Depression Screening Follow-up: Existing condition, In treatment and Community Mental Health Worker F/U Depression Screening Done: Yes 69235 - PHQ-9 Billing: Yes Source: Developed by Drs. Titi Palumbo, Tiffanie Gresham, Gary Monterroso and colleagues, with an educational jalen from [employer]. Thrive Questionnaire Date Thrive assessed: 06/17/25 I am a: Patient What is your living situation today?: I have a steady place to live Within the past 12 months, did the food you bought not last and you didn't have the money to get more?: Never true Within the past 12 months, did you worry whether your food would run out before you got money to buy more?: Never true Do you have trouble paying for medicines?: No Do you have trouble getting transportation to medical appointments?: No Do you have trouble paying your heating and electricity bill?: No Do you have trouble taking care of your child, family member or friend?: No Do you have trouble with day-to-day activities such as bathing, preparing meals, shopping, managing finances, etc.?: No Are you currently unemployed and looking for a job?: Yes Are you interested in more education?: Yes Please select the resources that you would like help with: None Currently or been in a relationship where the following occur: No concerns reported THRIVE Score: 0 AUDIT C Alcohol Use Questionnaire (AUDIT-C) 1. How often do you have a drink containing alcohol?: Monthly or less 2. How many drinks containing alcohol do you have on a typical day when you are drinking?: 1 or 2 3. How often do you have six or more drinks on one occasion?: Never Total Score: 1 Score Reviewed/Action Taken: Yes MARITZA-7 AMB Questionnaire MARITZA-7 Date MARITZA - 7 assessed: 06/24/25 Feeling nervous, anxious, or on edge: 1 = Several days Not being able to stop or control worryin = Several days Worrying too much about different things: 1 = Several days Trouble relaxin = Not at all Being so restless that it is hard to sit still: 1 = Several days Becoming easily annoyed or irritable: 1 = Several days Feeling afraid as if something awful might happen: 1 = Several days Total MARITZA-7 score (0-4 normal; 5-9 mild; 10-14 moderate; 15-21 severe): 6 Source: Developed by Drs. Titi Palumbo, Tiffanie Gresham, Gary Monterroso and colleagues, with an educational jalen from [employer]. MARITZA-7 Assessment Billing MARITZA-7 Assessment Tool: MARITZA-7 Assessment 77672 Review of Systems Const Denies chills, Denies fever(s), Denies headache(s) and Denies poor appetite Eyes Details: Goes to [facility] for her routine eye exam ENT Denies dizziness and Denies headache(s) Card Denies chest pain, Denies rapid heart rate, Denies palpitations and Denies slow heart rate Resp Denies chest congestion, Denies cough, Denies pain on inspiration and Denies wheezing GI Denies abdominal pain, Denies bloating, Denies change in stool character, Denies constipation, Denies diarrhea, Denies nausea, Denies vomiting and Denies hematemesis Details: Goes to [facility] clinic for her routine Pap and pelvic exam, currently on control pills Musc Denies back pain, Denies arthralgias, Denies joint swelling and Denies numbness Skin/Breast Denies breast pain, Reports breast mass, Denies change in breast shape, Denies change in pigmentation, Denies erythema and Denies rash Neuro Denies dizziness, Denies headache(s) and Denies numbness Psych Reports no additional complaints Endo Denies palpitations Rob/Lymph Denies easy bleeding, Denies easy bruising and Denies lymphadenopathy Aller/Immun Denies wheezing Physical exam (Primary Care) Vital Signs: Last Vital Signs Temp 97.6 F 06/24/25 16:02 Pulse 90 06/24/25 16:02 Resp 16 06/24/25 16:02 BP 110/80 06/24/25 16:02 Pulse Ox 96 06/24/25 16:02 Oxygen Delivery Method Room Air 06/24/25 16:02 BMI result Body Mass Index 45.2 Tobacco/Smoking Status: Tobacco use Status Tobacco use date assessed 06/24/25 06/24/25 16:10 Patient Tobacco Use Status Never used Tobacco 06/24/25 16:10 e-Cigarette/Vaping Use Never Used 06/24/25 16:10 PHQ-9: PHQ-9 Score PHQ-9: Total score 4 06/24/25 16:22 Depression Screening Interpretation: Positive (Currently on medication, followed by Josefina Moore) Depression Screening Follow-up: Existing condition, In treatment and Community Mental Health Worker F/U Thrive Assessment: Date of Thrive Assessment Date Thrive assessed 06/17/25 06/24/25 16:10 Currently or been in a relationship where the following occur: No concerns reported Immunizations Boostrix Tdap 2.5 Lf unit-8 mcg-5 Lf/0.5 mL intramuscular syringe Performing Provider: Lisa Kirkpatrick MD Performing Location: [facility] Administered by: Jun Yusuf CMA on 06/24/25 16:38 Dose Route Admin Location Dispensed Lot Number Expiration Date [facility] Landscaping Crew Leader 0.5 mL IM Left Deltoid 0.5 mL [id number] 01/31/28 18821-657-47 Cherry Total Dispensed Waste 0.5 mL 0 % VIS Given Date VIS Provided VIS Publication Date 06/24/25 Single Vaccine 21 Eligibility Eligibility Date Funding Source Not [facility] Eligible 06/24/25 Private Coding Diagnoses Morbid obesity E66.01 Additional Codes MARITZA-7 Assessment Billing - MARITZA-7 Assessment Tool: MARITZA-7 Assessment 31789 ([id number]) PHQ-9 - 66515 - PHQ-9 Billing: Yes ([id number]) Assessment & Plan Assessment & Plan (1) Morbid obesity: Code(s): E66.01 - Morbid (severe) obesity due to excess calories Category: Medical Orders: Orders Lipid Panel Today E66.01 - Morbid (severe) obesity due to excess calories TDaP Immunization Today Z23 - Encounter for immunization
--- OUTSIDE RECORDS SUMMARY | 2025-06-24 18:23 | XMS_ITS | Clinical Summary ---
Author Organization [facility] Address [address] [place] [address] Care Team Providers Care Boom Stick Man Name Role Phone Jenise Gresham Primary Care Provider [phone] Source Comments Please note that some or [...] so, obtain the minor's consent prior to disclosure.[facility] Allergies Active Allergy Reactions Criticality Noted Date [...] (04/13/2021): Added automatically from request for surgery [id number] Family History Medical History Relation Name Comments [...] patient's age to complete this topic Insurance [facility] [employer] Care Teams Boom Stick Man Relationship Specialty Start Date End Date Jenise Gresham PA [address] [place] [address] [place] [address] PCP - General Physician Residential Electrician 03/11/21
--- OUTSIDE RECORDS SUMMARY | 2025-06-24 18:23 | XMS_ITS | Encounter Summary ---
Author Organization [address] [address] Care Team Providers Care Implementation Technician Name Role Phone Jenise Gresham Primary Care Provider Reason for Visit * Reason Comments Medication Refill Encounter Details Date Type Department Care Team ([facility] st Contact Info) Description 02/22/2022 Refill [facility] Gastroenterology[address] [phone] Violeta De La Cruz MD [address] [place] [address] Gastroesophageal reflux disease, unspecified whether esophagitis present [...] present documented in this encounter Care Teams Implementation Technician Relationship Specialty Start Date End Date Jenise Gresham PA [address] [place] [address] [place] [address] PCP - General Physician Client Services Manager 03/11/21 documented as of this encounter
--- OUTSIDE RECORDS SUMMARY | 2025-06-24 18:23 | XMS_ITS | Encounter Summary ---
Author Organization [address] [address] Care Team Providers Care Certified Real Estate Appraiser Name Role Phone Jenise Gresham Primary Care Provider [phone] Reason for Visit * Reason Comments Medication Refill Encounter Details Date Type Department Care Team (Late st Contact Info) Description 01/19/2022 Refill [facility] Gastroenter[address] [phone] Violeta De La Cruz MD [address] [place] [address] Gastroesophageal reflux disease, unspecified whether esophagitis present [...] present documented in this encounter Care Teams Certified Real Estate Appraiser Relationship Specialty Start Date End Date Jenise Gresham PA [address] [place] [address] [place] [address] PCP - General Physician Human Resources Talent Manager 03/11/21 documented as of this encounter
--- OUTSIDE RECORDS SUMMARY | 2025-06-24 18:23 | XMS_ITS | Encounter Summary ---
[place] [address] Care Team Providers Care Lacemaker Name Role Phone Jenise Gresham Primary Care Provider [phone] Reason for Visit * Reason Comments Medication Refill Encounter Details Date Type Department Care Team ([facility] st Contact Info) Description 07/07/2022 Refill [facility] Gastroenterology[address] [phone] Violeta De La Cruz MD [address] [place] [address] Gastroesophageal reflux disease, unspecified whether esophagitis present [...] present documented in this encounter Care Teams Lacemaker Relationship Specialty Start Date End Date Jenise Gresham PA [address] [place] [address] [place] [address] PCP - General Physician Travel Pt 03/11/21 documented as of this encounter
--- OUTSIDE RECORDS SUMMARY | 2025-06-24 18:23 | XMS_ITS | Encounter Summary ---
[place] [address] Care Team Providers Care Box Lining Machine Operator Name Role Phone Jenise Gresham Primary Care Provider [phone] Reason for Visit * Reason Comments Medication Refill Encounter Details Date Type Department Care Team (Late st Contact Info) Description 10/18/2021 Refill [facility] Gastroenterology[address] [phone] Violeta De La Cruz MD [address] [place] [address] Gastroesophageal reflux disease, unspecified whether esophagitis present [...] Primary documented in this encounter Care Teams Box Lining Machine Operator Relationship Specialty Start Date End Date Jenise Gresham PA [address] [place] [address] [place] [address] PCP - General Physician Ob Gyn Physician Assistant 03/11/21 documented as of this encounter
--- OUTSIDE RECORDS SUMMARY | 2025-06-24 18:23 | XMS_ITS | Encounter Summary ---
[place] [address] Care Team Providers Care Tooler Name Role Phone Jenise Gresham Primary Care Provider [phone] Reason for Visit * Reason Comments Medication Refill Encounter Details Date Type Department Care Team (Late st Contact Info) Description 11/12/2021 Refill [facility] Gastroenterology[address] [phone] Violeta De La Cruz MD [address] [place] [address] Gastroesophageal reflux disease, unspecified whether esophagitis present [...] present documented in this encounter Care Teams Tooler Relationship Specialty Start Date End Date Jenise Gresham PA [address] [place] [address] [place] [address] PCP - General Physician Manager Apple 03/11/21 documented as of this encounter
--- OUTSIDE RECORDS SUMMARY | 2025-06-24 18:23 | XMS_ITS | Encounter Summary ---
Author Organization [address] [address] Care Team Providers Care Tax Technician Name Role Phone Jenise Gresham Primary Care Provider [phone] Reason for Visit * Reason Comments Medication Refill Encounter Details Date Type Department Care Team ([facility] st Contact Info) Description 03/25/2022 Refill [facility] Gastroenterology[address] [phone] Violeta De La Cruz MD [address] [place] [address] Gastroesophageal reflux disease, unspecified whether esophagitis present [...] present documented in this encounter Care Teams Tax Technician Relationship Specialty Start Date End Date Jenise Gresham PA [address] [place] [address] [place] [address] PCP - General Physician Chute Puller 03/11/21 documented as of this encounter
--- OUTSIDE RECORDS SUMMARY | 2025-06-24 18:23 | XMS_ITS | Clinical Summary ---
Author Organization [facility] Address [address] [place] [address] Phone Care Team Providers Care Legal Consultant Name Role Phone Self-Referred, Patient Unavailable Unavailab Lisa Mata MD Primary Care Provider Francis Sarabia MD Unavailable Milan Valdez MD Unavailable [phone] Allergies Active Allergy Reactions Criticality Noted [...] topic Medical Devices Not on file Insurance [facility] [place] [facility] [place] Care Teams Legal Consultant Relationship Specialty Start Date End Date Lisa Kirkpatrick MD [address] [facility] [place] [address] PCP - General Internal Medicine 05/18/22 Self-Referred, Patient 05/18/22 Francis Sarabia MD [address] [place] [address] Medical Oncology 06/14/22 Milan Valdez MD [address] [place] [address] General Surgery 06/14/22 Additional Source Comments The information contained in this document represents components of the legal health record. It is not the complete legal health record.[facility]
== END 2025-06-24 16:42 | disposition home or self-care (01) ==
LOC: HO.HMCC 16:01
PROVIDERS: PCP Internal Medicine; Visit Provider Internal Medicine
DX: Z23 Encounter for immunization (principal)

== ENCOUNTER → 2025-06-24 15:59 | Outpatient (BNVA) | payer OTHER, SELFPAY | PROVIDERS: PCP Internal Medicine; Visit Provider Internal Medicine | DX: Z00.01 Encounter for general adult medical examination with abnormal findings (principal); E66.01 Morbid (severe) obesity due to excess calories; F90.0 Attention-deficit hyperactivity disorder, predominantly inattentive type; J45.30 Mild persistent asthma, uncomplicated; F90.9 Attention-deficit hyperactivity disorder, unspecified type; F32.A Depression, unspecified; F41.9 Anxiety disorder, unspecified; F41.8 Other specified anxiety disorders; R73.01 Impaired fasting glucose; C44.599 Other specified malignant neoplasm of skin of other part of trunk; J45.20 Mild intermittent asthma, uncomplicated; G43.009 Migraine without aura, not intractable, without status migrainosus; R56.9 Unspecified convulsions; Z23 Encounter for immunization; Z68.42 Body mass index [BMI] 45.0-49.9, adult | CPT/HCPCS: 90471; 90715; 96127; 99395 ==

== ENCOUNTER 2025-06-27 20:47 | Emergency (ER) | payer OTHER, SELFPAY ==
[2025-06-27 20:51] VITALS: BP 125/64; PULSE 99; RESP 18; TEMP 36.2; O2SAT 97; BMI 45.4
--- OUTSIDE RECORDS SUMMARY | 2025-06-27 21:10 | XMS_ITS | Clinical Summary ---
Author Organization [facility] Address [address] [place] [address] Phone Care Team Providers Care Asphalt Patcher Name Role Phone Self-Referred, Patient Unavailable Unavailab Lisa Mata MD Primary Care Provider Francis Sarabia MD Unavailable Milan Valdez MD Unavailable [phone] Allergies Active Allergy Reactions Criticality Noted [...] topic Medical Devices Not on file Insurance [facility] [place] [facility] [place] Care Teams Asphalt Patcher Relationship Specialty Start Date End Date Lisa Kirkpatrick MD [address] [place] [address] PCP - General Internal Medicine 05/18/22 Self-Referred, Patient 05/18/22 Francis Sarabia MD [address] [place] [address] Medical Oncology 06/14/22 Milan Valdez MD [address] [place] [address] General Surgery 06/14/22 Additional Source Comments The information contained in this document represents components of the legal health record. It is not the complete legal health record.[facility]
--- OUTSIDE RECORDS SUMMARY | 2025-06-27 21:10 | XMS_ITS | Encounter Summary ---
[place] [address] Care Team Providers Care Manager Secondary Name Role Phone Jenise Gresham Primary Care Provider [phone] Reason for Visit * Reason Comments Medication Refill Encounter Details Date Type Department Care Team ([facility] st Contact Info) Description 07/07/2022 Refill [facility] Gastroenterology[address] [phone] Violeta De La Cruz MD [address] [place] [address] Gastroesophageal reflux disease, unspecified whether esophagitis present [...] present documented in this encounter Care Teams Manager Secondary Relationship Specialty Start Date End Date Jenise Gresham PA [address] [place] [address] [place] [address] PCP - General Physician Professor Of Environmental Science 03/11/21 documented as of this encounter
--- OUTSIDE RECORDS SUMMARY | 2025-06-27 21:10 | XMS_ITS | Encounter Summary ---
Author Organization [address] [address] Care Team Providers Care Evp Chief Exploration Officer Name Role Phone Jenise Gresham Primary Care Provider Reason for Visit * Reason Comments Medication Refill Encounter Details Date Type Department Care Team ([facility] st Contact Info) Description 02/22/2022 Refill [facility] Gastroenterology[address] [phone] Violeta De La Cruz MD [address] [place] [address] Gastroesophageal reflux disease, unspecified whether esophagitis present [...] present documented in this encounter Care Teams Evp Chief Exploration Officer Relationship Specialty Start Date End Date Jenise Gresham PA [address] [place] [address] [place] [address] PCP - General Physician Tire Fabricator 03/11/21 documented as of this encounter
--- OUTSIDE RECORDS SUMMARY | 2025-06-27 21:10 | XMS_ITS | Encounter Summary ---
Author Organization [address] [address] Care Team Providers Care Bellhop Service Captain Name Role Phone Jenise Gresham Primary Care Provider [phone] Reason for Visit * Reason Comments Medication Refill Encounter Details Date Type Department Care Team ([facility] st Contact Info) Description 03/25/2022 Refill [facility] Gastroenterology[address] [phone] Violeta De La Cruz MD [address] [place] [address] Gastroesophageal reflux disease, unspecified whether esophagitis present [...] present documented in this encounter Care Teams Bellhop Service Captain Relationship Specialty Start Date End Date Jenise Gresham PA [address] [place] [address] [place] [address] PCP - General Physician Cement Rubber 03/11/21 documented as of this encounter
--- OUTSIDE RECORDS SUMMARY | 2025-06-27 21:10 | XMS_ITS | Clinical Summary ---
Author Organization [facility] Address [address] [place] [address] Care Team Providers Care Communications Senior Associate Name Role Phone Jenise Gresham Primary Care Provider [phone] Source Comments Please note that some or [...] so, obtain the minor's consent prior to disclosure.[facility] Allergies Active Allergy Reactions Criticality Noted [...] (04/13/2021): Added automatically from request for surgery [id number] Family History Medical History Relation Name Comments [...] patient's age to complete this topic Insurance [facility] [employer] PL[employer] Care Teams Communications Senior Associate Relationship Specialty Start Date End Date Jenise Gresham PA [address] [place] [address] [place] [address] PCP - General Physician Mill Feeder 03/11/21
--- OUTSIDE RECORDS SUMMARY | 2025-06-27 21:11 | XMS_ITS | Encounter Summary ---
[place] [address] Care Team Providers Care Risk Engineer Name Role Phone Jenise Gresham Primary Care Provider [phone] Reason for Visit * Reason Comments Medication Refill Encounter Details Date Type Department Care Team (Late st Contact Info) Description 10/18/2021 Refill [facility] [address]astroenter[address] [phone] Violeta De La Cruz MD [address] [place] [address] Gastroesophageal reflux disease, unspecified whether esophagitis present [...] Primary documented in this encounter Care Teams Risk Engineer Relationship Specialty Start Date End Date Jenise Gresham PA [address] [place] [address] [place] [address] PCP - General Physician Produce Buyer 03/11/21 documented as of this encounter
--- OUTSIDE RECORDS SUMMARY | 2025-06-27 21:11 | XMS_ITS | Encounter Summary ---
Author Organization [address] [address] Care Team Providers Care Second Cook And Baker Name Role Phone Jenise Gresham Primary Care Provider [phone] Reason for Visit * Reason Comments Medication Refill Encounter Details Date Type Department Care Team (Late st Contact Info) Description 01/19/2022 Refill [facility] Gastroenterology[address] [phone] Violeta De La Cruz MD [address] [place] [phone] Gastroesophageal reflux disease, unspecified whether esophagitis present [...] present documented in this encounter Care Teams Second Cook And Baker Relationship Specialty Start Date End Date Jenise Gresham PA [address] [place] [address] [place] [address] PCP - General Physician Clicker Operator 03/11/21 documented as of this encounter
--- OUTSIDE RECORDS SUMMARY | 2025-06-27 21:11 | XMS_ITS | Encounter Summary ---
[place] [address] Care Team Providers Care Drive In Teller Name Role Phone Jenise Gresham Primary Care Provider [phone] Reason for Visit * Reason Comments Medication Refill Encounter Details Date Type Department Care Team (Late st Contact Info) Description 11/12/2021 Refill [facility] Gastroenterology[address] [phone] Violeta De La Cruz MD [address] [place] [address] Gastroesophageal reflux disease, unspecified whether esophagitis present [...] present documented in this encounter Care Teams Drive In Teller Relationship Specialty Start Date End Date Jenise Gresham PA [address] [place] [address] [place] [address] PCP - General Physician Focus Puller 03/11/21 documented as of this encounter
--- NOTE | 2025-06-27 21:32 | ED.EXTPRO ---
HPI - Extremity Problem General Chief complaint: Extremity Injury, Upper Stated complaint: L hand numbness and shooting pain down arm Time Seen by Provider: 06/27/25 21:26 Source: patient Mode of arrival: ambulatory Limitations: no limitations History of Present Illness ED Provider: Alexx PETERS HPI Narrative: The patient is a 25-year-old female with a history of asthma, migraines, PNS, obesity, GERD, anxiety, depression, and ADHD, presenting to the ED for evaluation of tingling paresthesias of the left 1st 2nd and 3rd digits. The patient reports on Monday she received an update to her tetanus vaccination in her left deltoid. Patient reports no pain in the deltoid, no complaints until this morning when she woke, lying on her back, without trapping of the arm, but with numbness of the left hand as described. Patient reports there was some mild pain and tenderness of the left palmar forearm. The patient denies any known trauma, change in activity level, heavy lifting, or other provoking factor. The patient denies associated fever/chills, nausea, vomiting, or other acute systemic complaint. The patient denies similar previous symptoms. Related Data Home Medications ?Medication ?Instructions ?Recorded ?Confirmed diphenhydramine HCl 25 mg capsule 25 mg PO BEDTIME PRN yes 09/27/23 06/16/25 (Sleep Aid (diphenhydramine)) escitalopram oxalate 10 mg tablet 10 mg PO DAILY 09/27/23 06/16/25 hydroxyzine HCl 10 mg tablet 10 mg PO BID 09/27/23 06/16/25 aripiprazole 5 mg tablet 5 mg PO BEDTIME 04/09/24 06/16/25 lisdexamfetamine 20 mg capsule 20 mg PO DAILY 06/05/24 06/16/25 (Vyvanse) lisdexamfetamine 50 mg capsule 50 mg PO QAM 06/05/24 06/16/25 (Vyvanse) fluticasone furoate 200 1 inh inhalation DAILY 06/24/25 mcg/actuation blister powder for inhalation Previous Rx's ?Medication ?Instructions ?Recorded albuterol sulfate 2.5 mg/3 mL 2.5 mg (3 mL) inhalation Q4-6H PRN 09/24/21 (0.083 %) solution for nebulization shortness of breath or wheezing #75 mL Ventolin HFA 90 mcg/actuation 2 puff inhalation Q4-6H PRN 09/28/23 aerosol inhaler (albuterol sulfate) shortness of breath or wheezing 30 days #18 grams naproxen 500 mg tablet 500 mg PO BID PRN pain #14 tabs 12/19/24 gabapentin 300 mg capsule 300 mg PO TID 90 days #270 caps 01/16/25 norethindrone (contraceptive) 0.35 0.35 mg PO DAILY 30 days #30 tabs 05/15/25 mg tablet Allergies Allergy/AdvReac Type Severity Reaction Status Date / Time amoxicillin Allergy Intermediate Hives Verified 06/27/25 20:53 azithromycin (Zithromax) Allergy Intermediate Itching Verified 06/27/25 20:53 Cephalosporins Allergy Intermediate HIVES Verified 06/27/25 20:53 (CEPHALOSPORINS) erythromycin base Allergy Intermediate HIVES Verified 06/27/25 20:53 (ERYTHROMYCIN BASE) levofloxacin (From LEVAQUIN) Allergy Intermediate HIVES Verified 06/27/25 20:53 Penicillins (PENICILLINS) Allergy Intermediate HIVES Verified 06/27/25 20:53 Antibiotic Allergy Intermediate Itching Uncoded 06/27/25 20:53 Cefzil Allergy Intermediate Itching Uncoded 06/27/25 20:53 Review of Systems Review of Systems: Yes all other systems are reviewed and are negative PMFSH Past Medical History Medical History Morbid obesity Dermatofibrosarcoma protuberans of chest Mild intermittent asthma History of seizure Multiple allergies Constipation COVID-19 Surgical History History of excision of mass (02/23/22) History of excision of mass (01/26/22) History of endoscopy History of tonsillectomy and adenoidectomy Family History Family History Mother Mental health disorder Father Substance use disorder Maternal Grandmother Skin cancer Maternal Grandfather Mental health disorder Social History Social History Household Members: Family Housing: House Are you a primary healthcare management consultant to a significant other at home: No Do you presently have visiting nurse or other home services: No Patient Tobacco Use Status: Never used Tobacco Smoked in Last 30 Days: No e-Cigarette/Vaping Use: Never Used Second Hand Smoke Exposure: Yes Use of substances other than those prescribed or required for medical reasons: No Substance Use Type: Marijuana Advance Directives: No Advance Directives Information Provided: No Do you have a plan to hurt others: No Plan Patient : No service: No Current occupational status: unemployed and student Cognitive needs: No Hearing needs: No Vision needs: Yes Physical Exam Vital Signs: Vital Signs: Last Vital Signs Temp 97.2 F 06/27/25 20:51 Pulse 99 06/27/25 20:51 Resp 18 06/27/25 20:51 BP 125/64 06/27/25 20:51 Pulse Ox 97 06/27/25 20:51 O2 Del Method Room Air 06/27/25 20:51 BMI result Body Mass Index 45.4 CONSTITUTIONAL: The patient appears non-toxic, well nourished and in no acute distress. Vital signs as documented. HEAD: Atraumatic, normocephalic. EYES: EOMs grossly intact, pupils equal, conjunctiva clear, no exudate. ENT: Nares patent, no discharge. Airway patent, no audible stridor, visible mucosa is pink and moist without noted lesions. NECK: trachea is midline, no obvious masses or gross abnormalities. CHEST: Symmetric movement, normal appearance. LUNGS: Non-labored work of breathing. CARDIAC: No evidence of hypoperfusion. ABDOMEN: Nondistended, no obvious injury. : Deferred. EXTREMITIES: Left hand/forearm demonstrates normal dexterity including opposition, 5/5 strength, intact capillary refill, mahesh's test is normal. No open injury, erythema, warmth, induration, or fluctuance. Left deltoid demonstrates no erythema, induration, fluctuance, tenderness, or mass. Moves all other extremities spontaneously without reported pain. No obvious injury or deformity noted. NEURO: Alert and oriented x3, CN II-XII appear grossly intact. Cerebellar Functioning grossly intact. Speech clear and appropriate. SKIN: Warm, dry, color appropriate. No rashes or lesions noted. Medical Decision Making Medical Decision Making MDM Narrative: 10:26 PM 06/27/2025 (Pipe PETERS): The patient is a 25-year-old female with a history of asthma, migraines, PNS, obesity, GERD, anxiety, depression, and ADHD, presenting to the ED for evaluation of tingling paresthesias of the left 1st 2nd and 3rd digits. The patient reports on Monday she received an update to her tetanus vaccination in her left deltoid. Patient reports no pain in the deltoid, no complaints until this morning when she woke, lying on her back, without trapping of the arm, but with numbness of the left hand as described. Patient reports there was some mild pain and tenderness of the left palmar forearm. The patient denies any known trauma, change in activity level, heavy lifting, or other provoking factor. The patient denies associated fever/chills, nausea, vomiting, or other acute systemic complaint. The patient denies similar previous symptoms. In the ED patient appears in no acute distress, exam reveals intact dexterity, 5/5 strength, intact capillary refill, and unremarkable Mahesh's test. There was no open injury, no overlying erythema, warmth, induration, or fluctuance. Evaluation of the left deltoid demonstrates no erythema, induration, fluctuance, tenderness, or mass. Patient appears to be suffering from paresthesias involving the radial nerve. At this time seeing as patient has no impaired blood flow or motor function, patient will be discharged with anti-inflammatories and outpatient follow up with PCP with strict return precautions should she develop hand weakness or other concerning symptoms. Admission/Observation Consideration of admission/observation: Escalation of care including admission/observation considered External Record Review External record reviewed: Outpatient record Prescription Management I considered prescription management with: Pain Medication Discharge Plan Discharge Clinical Impression: Paresthesia and pain of left extremity Patient Disposition: Home, Self-Care Instructions: Radial Nerve Palsy (ED), Paresthesia (ED) Additional Instructions: Thank you for choosing [facility] Emergency Department for your care today. The exact cause of your numbness and tingling of your left 1st, 2nd, and 3rd fingers is not entirely clear, but may be due to inflammation or irritation of your radial nerve. It is unclear if this is related to your recent tetanus injection. Thankfully your exam today shows normal blood flow and strength in your left hand, and there was no evidence of infection in your shoulder or arm. As such there is no indication for splinting, antibiotics, admission to the hospital, or continued ED observation, and it is safe to discharge you home. You should take alternating (staggered) doses of ibuprofen 600mg and Tylenol 1000mg every 4 hours as needed for any additional pain. Please stay well hydrated and get plenty of rest. Please rest the injured area, and you may apply ice for 20 minutes every hour. We have treated you with a lidocaine patch, if you find this provides you significant relief additional patches can be purchased at any local pharmacy without a prescription. Please follow up with your primary care physician by calling them Monday to schedule an appointment for re-evaluation, additional management of your symptoms, and continued preventative care. If you do not have a primary care physician, please call the [facility] at [phone] to establish a new primary care physician. While waiting to establish your new primary care physician, you can call our Walk-in [facility] at [phone] for non-emergency needs. Please return to the emergency department if you develop a severe or sudden change in your symptoms, weakness or inability to move the hand, a fever over 100.4 that does not improve with Tylenol or Ibuprofen, recurrent vomiting, or any other new or worsening symptoms or concerns. Prescriptions: No Action albuterol sulfate 2.5 mg /3 mL (0.083 %) solution for nebulization 2.5 mg inhalation Q4-6H PRN (Reason: shortness of breath or wheezing) Qty: 75 0RF albuterol sulfate [Ventolin HFA] 90 mcg/actuation HFA aerosol inhaler 2 puff inhalation Q4-6H PRN (Reason: shortness of breath or wheezing) 30 Days Qty: 18 1RF naproxen 500 mg tablet 500 mg PO BID PRN (Reason: pain) Qty: 14 0RF escitalopram oxalate 10 mg tablet 10 mg PO DAILY hydroxyzine HCl 10 mg tablet 10 mg PO BID diphenhydramine HCl [Sleep Aid (diphenhydramine)] 25 mg capsule 25 mg PO BEDTIME PRN (Reason: yes) aripiprazole 5 mg tablet 5 mg PO BEDTIME lisdexamfetamine [Vyvanse] 50 mg capsule 50 mg PO QAM lisdexamfetamine [Vyvanse] 20 mg capsule 20 mg PO DAILY gabapentin 300 mg capsule 300 mg PO TID 90 Days Qty: 270 1RF fluticasone furoate 200 mcg/actuation blister with device 1 inh inhalation DAILY norethindrone (contraceptive) 0.35 mg tablet 0.35 mg PO DAILY 30 Days Qty: 30 0RF Referrals: Lisa Kirkpatrick MD [Primary Care Provider, Internal Medicine] Clinical Impression: Paresthesia and pain of left extremity Print Language: Welsh
[2025-06-27 22:29] VITALS: BP 125/64; PULSE 99; RESP 18; TEMP 36.2; O2SAT 97
[2025-06-27] MEDS: Lidocaine 4 % Patch ADH..PATCH 1 PATCH TRANSDERMA (22:36)
== END 2025-06-27 22:42 | disposition home or self-care (01) ==
PROVIDERS: Emergency Provider Emergency Medicine; PCP Internal Medicine
DX: R20.0 Anesthesia of skin (principal); M79.632 Pain in left forearm; Z79.899 Other long term (current) drug therapy
CPT/HCPCS: 99284

== ENCOUNTER 2025-08-18 15:36 | Outpatient (AMB) | payer OTHER, SELFPAY ==
[2025-08-18 15:44] VITALS: BP 120/72; PULSE 102; RESP 18; TEMP 36.6; O2SAT 96; BMI 47.5
--- NOTE | 2025-08-18 15:44 | MHC.OFFWIV ---
Intake Vital Signs 08/18/25 15:44 Height 5 ft 2 in Weight 260 lb BMI 47.5 BP 120/72 Blood Pressure Location Lt brachial Position Sitting Respiration 18 Pulse 102 H Pulse Source Pulse Oximeter Temp 97.8 F Temp Source Oral Pulse Oximetry (%) 96 Oxygen Delivery Method Room Air Intake Visit Reasons: EP Lower back pain/ hip pain Patient Tobacco Use Status: Never used Tobacco Allergies amoxicillin Allergy (Intermediate, Verified 08/18/25 15:55) Hives azithromycin (Zithromax) Allergy (Intermediate, Verified 08/18/25 15:55) Itching Cephalosporins (CEPHALOSPORINS) Allergy (Intermediate, Verified 08/18/25 15:55) HIVES erythromycin base (ERYTHROMYCIN BASE) Allergy (Intermediate, Verified 08/18/25 15:55) HIVES levofloxacin (From LEVAQUIN) Allergy (Intermediate, Verified 08/18/25 15:55) HIVES Penicillins (PENICILLINS) Allergy (Intermediate, Verified 08/18/25 15:55) HIVES Antibiotic Allergy (Intermediate, Uncoded 08/18/25 15:55) Itching Cefzil Allergy (Intermediate, Uncoded 08/18/25 15:55) Itching Do you need a note to return to daycare/school/sports/work: No HPI HPI Comments History of Present Illness Details 25-year-old female presents to the walk-in clinic with complaints of lower back pain for the past few days. She denies any direct injury or trauma to the back. She reports that a few days ago she helped her mother lift a heavy bag of salt. Denies urinary symptoms including dysuria, frequency, urgency, hematuria, or flank pain. Denies bowel or bladder incontinence, saddle anesthesia, lower extremity weakness, numbness, or tingling. She reports a recent vaginal yeast infection, treated with OTC Monistat with good relief. She is currently on day one of her menstrual period. She is sexually active with one male partner and does not use condoms. She is currently on oral contraceptive pills. Denies fever, chills, nausea, vomiting, abdominal pain, or pelvic pain. [facility] Medical History (Updated 08/18/25 @ 17:18 by Isi Ruff NP) Low back pain Mild intermittent asthma History of irregular menstrual cycles Impaired fasting glucose Morbid obesity Dermatofibrosarcoma protuberans of chest History of seizure Multiple allergies Constipation COVID-19 Surgical History History of excision of mass (02/23/22) History of excision of mass (01/26/22) History of endoscopy History of tonsillectomy and adenoidectomy Family History Mother Mental health disorder Father Substance use disorder Maternal Grandmother Skin cancer Maternal Grandfather Mental health disorder Social History Household Members: Family Housing: House Are you a primary career development consultant to a significant other at home: No Do you presently have visiting nurse or other home services: No Patient Tobacco Use Status: Never used Tobacco e-Cigarette/Vaping Use: Never Used Second Hand Smoke Exposure: Yes Substance Use Type: Marijuana service: No Current occupational status: unemployed and student Cognitive needs: No Hearing needs: No Vision needs: Yes Female Reproductive History Menstrual Age of Menarche: 14 Review of Systems Const All systems reviewed & are unremarkable except as noted in HPI and below Physical Exam Vital Signs: Last Vital Signs Temp 97.8 F 08/18/25 15:44 Pulse 102 H 08/18/25 15:44 Resp 18 08/18/25 15:44 BP 120/72 08/18/25 15:44 Pulse Ox 96 08/18/25 15:44 Oxygen Delivery Method Room Air 08/18/25 15:44 BMI result Body Mass Index 47.5 Const General: no acute distress Nutritional Appearance: obese morbidly obese Orientation/consciousness: patient oriented x3 General: Yes no CVA tenderness Back/Spine/Pelvis Other: Back: Mild tenderness to palpation of lower lumbar paraspinal muscles. No midline spinal tenderness. No deformity, swelling, or ecchymosis. Back: no CVA tenderness and back tenderness Thoracic/Lumbar Spine: pain with thoraco-lumbar ROM and lumbar spinal tenderness Neuro General: patient oriented x3, gait normal and moves all extremities Psych Speech and movement: Normal speech and movement present Results AMB Urinalysis, Automated UA Leukoctes 0 Alvaro/uL Last Edit by Jun Yusuf CMA on 08/18/25 16:38 UA Nitrite Negative Last Edit by Jun Yusuf CMA on 08/18/25 16:38 UA Urobilinogen 0.2 mg/dL Last Edit by Jun Yusuf CMA on 08/18/25 16:38 UA Protein 0 mg/dL Last Edit by Jun Yusuf CMA on 08/18/25 16:38 UA pH 6.0 Last Edit by Jun Yusuf, WIL on 08/18/25 16:38 UA Blood 25 Carlitos/uL Last Edit by Jun Yusuf, WIL on 08/18/25 16:38 UA Specific [place] 1.015 Last Edit by Jun Yusuf, WIL on 08/18/25 16:38 UA Ketone Negative Last Edit by Jun Yusuf CMA on 08/18/25 16:38 UA Bilirubin 0 mg/dL Last Edit by Jun Yusuf CMA on 08/18/25 16:38 UA Glucose 0 mg/dL Last Edit by Jun Yusuf CMA on 08/18/25 16:38 Results Reviewed Results Reviewed: Laboratory Last Values Urine pH (Auto) 6.0 08/18/25 16:37 Specific [place] (Auto) 1.015 08/18/25 16:37 Urine Protein (Auto) 0 mg/dL 08/18/25 16:37 Glucose (UA)(Auto) 0 mg/dL 08/18/25 16:37 Urine Ketones (Auto) Negative 08/18/25 16:37 Urine Blood (Auto) 25 Carlitos/uL 08/18/25 16:37 Urine Nitrite (Auto) Negative 08/18/25 16:37 Urine Bilirubin (Auto) 0 mg/dL 08/18/25 16:37 Urine Urobilinogen (Auto) 0.2 mg/dL 08/18/25 16:37 Leukocyte Esterase (Auto) 0 Alvaro/uL 08/18/25 16:37 Assessment & Plan Assessment & Plan (1) Low back pain: Code(s): M54.50 - Low back pain, unspecified Plan: Acute low back pain without sciatica, likely musculoskeletal strain related to recent heavy lifting Menstruation, day 1 ? possible contributing factor to lower back discomfort. Reassured patient regarding likely musculoskeletal etiology Rapid Urinalysis Negative. Recommended rest, avoidance of heavy lifting, and activity modification NSAIDs or acetaminophen as needed for pain, if no contraindications Apply heat or ice to lower back as needed Encouraged gentle stretching once pain improves Educated patient on proper lifting mechanics No imaging indicated at this time given absence of red flag symptoms Advised to return if pain worsens, persists beyond 1?2 weeks, or if she develops neurologic symptoms, urinary symptoms, fever, or pelvic pain Orders: Orders AMB Urinalysis Automated Today Z13.9 - Encounter for screening, unspecified Coding Level of Care Code Est Pt Level 4 (34292) Diagnoses Low back pain M54.50 Time Spent (min) 20
--- OUTSIDE RECORDS SUMMARY | 2025-08-18 17:35 | XMS_ITS | Clinical Summary ---
Author Organization [facility] Address [address] [place] [address] Phone Care Team Providers Care Agile Test Lead Name Role Phone Self-Referred, Patient Unavailable Unavailab Lisa Mata MD Primary Care Provider Francis Sarabia MD Unavailable Milan Valdez MD Unavailable [phone] Allergies Active Allergy Reactions Criticality Noted [...] topic Medical Devices Not on file [facility] Care Teams Agile Test Lead Relationship Specialty Start Date End Date Lisa Kirkpatrick MD [address] [facility] [place] [id number] PCP - General Internal Medicine 05/18/22 Self-Referred, Patient 05/18/22 Francis Sarabia MD [address] [place] [address] Medical Oncology 06/14/22 Milan Valdez MD [address] [place] [id number] General Surgery 06/14/22 Additional Source Comments The information contained in this document represents components of the legal health record. It is not the complete legal health record.[facility]
--- OUTSIDE RECORDS SUMMARY | 2025-08-18 17:35 | XMS_ITS | Encounter Summary ---
[place] [address] Care Team Providers Care Feather Edger Name Role Phone Jenise Gresham Primary Care Provider [phone] Reason for Visit * Reason Comments Medication Refill Encounter Details Date Type Department Care Team (Late st Contact Info) Description 10/18/2021 Refill [facility] Gastroenterology[address] [phone] Violeta De La Cruz MD [address] [place] [address] Gastroesophageal reflux disease, unspecified whether esophagitis present [...] Primary documented in this encounter Care Teams Feather Edger Relationship Specialty Start Date End Date Jenise Gresham PA [address] [place] [address] [place] [address] PCP - General Physician Remediation Bioanalytics Consultant 03/11/21 documented as of this encounter
--- OUTSIDE RECORDS SUMMARY | 2025-08-18 17:35 | XMS_ITS | Encounter Summary ---
Author Organization [address] [address] Care Team Providers Care Blending Tank Tender Name Role Phone Jenise Gresham Primary Care Provider [phone] Reason for Visit * Reason Comments Medication Refill Encounter Details Date Type Department Care Team ([facility] st Contact Info) Description 03/25/2022 Refill [facility] Gastroenter[address] [phone] Violeta De La Cruz MD [address] [place] [phone] Gastroesophageal reflux disease, unspecified whether esophagitis present [...] present documented in this encounter Care Teams Blending Tank Tender Relationship Specialty Start Date End Date Jenise Gresham PA [address] [place] [address] [place] [address] PCP - General Physician Dental Services Director 03/11/21 documented as of this encounter
--- OUTSIDE RECORDS SUMMARY | 2025-08-18 17:35 | XMS_ITS | Encounter Summary ---
[place] [address] Care Team Providers Care Teacher Aide Name Role Phone Jenise Gresham Primary Care Provider [phone] Reason for Visit * Reason Comments Medication Refill Encounter Details Date Type Department Care Team (Late st Contact Info) Description 11/12/[address] [facility] Gastroenterology[address] [phone] Violeta De La Cruz MD [address] [place] [phone] Gastroesophageal reflux disease, unspecified whether esophagitis present [...] present documented in this encounter Care Teams Teacher Aide Relationship Specialty Start Date End Date Jenise Gresham PA [address] [place] [address] [place] [address] PCP - General Physician Bucket Wash Operator 03/11/21 documented as of this encounter
--- OUTSIDE RECORDS SUMMARY | 2025-08-18 17:35 | XMS_ITS | Encounter Summary ---
[place] [address] Care Team Providers Care Carver And Checkerer Specials Name Role Phone Jenise Gresham Primary Care Provider [phone] Reason for Visit * Reason Comments Medication Refill Encounter Details Date Type Department Care Team ([facility] st Contact Info) Description 07/07/2022 Refill [facility] Gastroenter[address] [phone] Violeta De La Cruz MD [address] [place] [address] Gastroesophageal reflux disease, unspecified whether esophagitis present [...] present documented in this encounter Care Teams Carver And Checkerer Specials Relationship Specialty Start Date End Date Jenise Gresham PA [address] [place] [address] [place] [address] PCP - General Physician Railroad Brake Repairer 03/11/21 documented as of this encounter
--- OUTSIDE RECORDS SUMMARY | 2025-08-18 17:35 | XMS_ITS | Clinical Summary ---
Author Organization [facility] Address [address] [place] [id number] Care Team Providers Care Pulling Unit Operator Name Role Phone Jenise Gresham Primary Care Provider [phone] Source Comments Please note that some or [...] so, obtain the minor's consent prior to disclosure.[facility] Allergies Active Allergy Reactions Criticality Noted [...] (04/13/2021): Added automatically from request for surgery [id number] Family History Medical History Relation Name Comments [...] patient's age to complete this topic Insurance [facility] [place] [employer] Care Teams Pulling Unit Operator Relationship Specialty Start Date End Date Jenise Gresham PA [address] [place] [address] [place] [phone] PCP - General Physician Rubber Flap Cutter 03/11/21
--- OUTSIDE RECORDS SUMMARY | 2025-08-18 17:35 | XMS_ITS | Encounter Summary ---
Author Organization [address] [address] Care Team Providers Care Aerodynamic Consultant Name Role Phone Jenise Gresham Primary Care Provider Reason for Visit * Reason Comments Medication Refill Encounter Details Date Type Department Care Team (Late st Contact Info) Description 01/19/2022 Refill [facility] Gastroenter[address] [phone] Violeta De La Cruz MD [address] [place] [id number] Gastroesophageal reflux disease, unspecified whether esophagitis present [...] present documented in this encounter Care Teams Aerodynamic Consultant Relationship Specialty Start Date End Date Jenise Gresham PA [address] [place] [address] [place] [address] PCP - General Physician Door Builder 03/11/21 documented as of this encounter
--- OUTSIDE RECORDS SUMMARY | 2025-08-18 17:35 | XMS_ITS | Encounter Summary ---
Author Organization [address] [address] Care Team Providers Care Research Environmental Engineer Name Role Phone Jenise Gresham Primary Care Provider [phone] Reason for Visit * Reason Comments Medication Refill Encounter Details Date Type Department Care Team ([facility] st Contact Info) Description 02/22/2022 Refill [facility] Gastroenterology[address] [phone] Violeta De La Cruz MD [address] [place] [phone] Gastroesophageal reflux disease, unspecified whether esophagitis present [...] present documented in this encounter Care Teams Research Environmental Engineer Relationship Specialty Start Date End Date Jenise Gresham PA [address] [place] [address] [place] [address] PCP - General Physician Employment Coach 03/11/21 documented as of this encounter
== END 2025-08-18 16:33 | disposition home or self-care (01) ==
PROVIDERS: PCP Internal Medicine; Visit Provider Nurse Practitioner Family
DX: Z13.9 Encounter for screening, unspecified (principal); M54.50 Low back pain, unspecified

== ENCOUNTER → 2025-08-18 15:36 | Outpatient (BNVA) | payer OTHER, SELFPAY | PROVIDERS: PCP Internal Medicine; Visit Provider Nurse Practitioner Family | DX: M54.50 Low back pain, unspecified (principal) | CPT/HCPCS: 81003; 99212 ==